=== PATIENT | female | born 1990 | race Caucasian/White ===

== ENCOUNTER 2020-04-06 22:57 | Inpatient (IN) | payer MEDICAID, SELFPAY ==
--- NOTE | 2020-04-06 22:58 | ECG_ITS ---
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
[2020-04-06 22:59] VITALS: BP 143/85; PULSE 99; RESP 17; TEMP 37; O2SAT 99; BMI 40.7
--- NOTE | 2020-04-06 23:09 | ED_ITS ---
HPI - Overdose General: Chief Complaint: Overdose Stated Complaint: OD Time Seen by Provider: 04/06/20 22:59 Source: patient and EMS Mode of arrival: EMS Limitations: no limitations History of Present Illness: HPI Narrative: 30-year-old female is here after an overdose attempt. She took multiple Klonopin's and Remeron was roughly 2 hours ago. Unsure of the exact amount. She told me she does not want to live anymore and just wanted to go to sleep and never wake up. Patient here is awake and alert and is not somnolent. She denies any other ingestions. She denies any vomiting or diarrhea. She has a long history of psychiatric issues. Review of Systems Const: Denies: fever(s), chills, body aches or change in appetite Eyes: Denies: blurry vision or eye discomfort ENMT: Denies: throat pain or dental pain Card: Denies: chest pain Resp: Denies: dyspnea GI: Denies: abdominal pain, nausea, vomiting or diarrhea : Denies: dysuria Musc: Denies: neck pain or back pain Skin/Breast: Denies: rash Neuro: Denies: headache(s) Psych: Reports: depression and suicidal ideation Momo/Lymph: Denies: easy bruising All/Imm: Denies: urticaria PFSH ED PFSH: Medical History (Updated 04/07/20 @ 02:50 by Michelle Brewer MD) Chronic post-traumatic stress disorder Major depressive disorder, recurrent, severe with psychotic symptoms Physical Exam Const: COMMON NORMALS: no acute distress, patient oriented x3 and healthy appearing HENMT: COMMON NORMALS: normocephalic and atraumatic HEAD & SCALP: normocephalic and atraumatic Eye: COMMON NORMALS: Equal, round and reactive pupils present and EOMs intact bilaterally PUPIL: Yes Equal, round and reactive pupils present Neck/C-Spine: COMMON NORMALS: full ROM and supple Chest: COMMONS NORMALS: normal inspection of the chest and normal palpation of entire chest wall Resp: COMMON NORMALS: normal respiratory effort, No retractions, No use of accessory muscles and clear to auscultation bilaterally AUSCULTATION: clear to auscultation bilaterally Cardio: COMMON NORMALS: regular rate, regular rhythm and No murmurs present (Cardio) RATE: regular rate RHYTHM: regular rhythm GI: COMMON NORMALS: Normal to inspection, nondistended, normoactive bowel sounds present, Soft to palpation, non-tender and no masses PALPATION: Yes Soft to palpation Extremity: COMMON NORMALS: normal to inspection and full ROM Neuro: COMMON NORMALS: patient oriented x3, moves all extremities and no focal motor deficits Psych: COMMON NORMALS: mental status grossly normal, Normal thought process present and cooperative THOUGHT PROCESS: Normal thought process present THOUGHT CONTENT: Yes Suicidality present Skin: COMMON NORMALS: no rashes or lesions noted and no wounds GENERAL SKIN EXAM: no rashes or lesions noted Course Vital Signs: Vital signs: Vital Signs Temperature 98.6 F 04/06/20 22:59 Pulse Rate 81 04/07/20 02:55 Respiratory Rate 18 04/07/20 02:58 Blood Pressure 151/83 04/07/20 02:55 Pulse Oximetry 97 04/07/20 02:55 MDM - Overdose MDM Narrative: Medical decision making narrative: Anita presents here with an intentional overdose for suicide attempt. Patient observed here for almost 5 hours and she has no signs of overdose. Patient's had no decreased in mental status and no difficulty breathing. She has no signs of lethal dose of her meds. Patient's blood work here is all normal. I spoke to psychiatrist and will admit to the psychiatric unit. Lab Data: Labs: Lab Results 04/06/20 04/06/20 04/06/20 Range/Units 00:03 23:23 23:23 WBC 11.9 H (4.0-10.0) 10^3/ uL RBC 4.12 (4.1-5.3) 10^6/u L Hgb 13.8 (11.5-15.3) g/dL Hct 41.0 (37.0-47.0) % MCV 99.5 H (81-99) fL MCH 33.5 (28.0-34.0) pg MCHC 33.7 (30.0-36.0) g/dL RDW 11.9 L (12.1-15.1) % Plt Count 341 (130-400) 10^3/c mm MPV 10.6 H (7.4-10.4) fL Neut % (Auto) 63.7 % Lymph % (Auto) 27.6 % Davidson % (Auto) 7.3 % Eos % (Auto) 0.8 % Baso % (Auto) 0.3 % Neut # (Auto) 7.59 (1.8-7.7) 10^3/u L Lymph # (Auto) 3.3 (0.8-4.8) 10^3/u L Davidson # (Auto) 0.9 (0.2-0.9) 10^3/u L Eos # (Auto) 0.1 (0.0-0.8) 10^3/u L Baso # (Auto) 0.0 (0.0-0.1) 10^3/u L Nucleated RBC % (a uto) 0 % Nucleated RBCs # 0.0 /100WBC Sodium 135 L (136-145) mmol/L Potassium 4.0 (3.5-5.1) mmol/L Chloride 101 (98-107) mmol/L Carbon Dioxide 23 (22-29) mmol/L Anion Gap 15.0 (5-19) BUN 9 (6-20) mg/dL Creatinine 0.8 (0.5-0.9) mg/dL GFR Calculation 83.1 L (90-130) mL/min Glucose 103 (65-115) mg/dL Calculated Osmolal ity 279 L (285-295) mOsm/k g Calcium 9.2 (8.5-10.5) mg/dL Total Bilirubin 0.5 (0.15-1.2) mg/dL AST 24 (0-32) U/L ALT 25 (0-33) U/L Alkaline Phosphata se 72 (35-105) IU/L Total Protein 7.0 (6.6-8.7) g/dL Albumin 4.2 (3.5-5.2) g/dL Globulin 2.8 (1.3-4.6) g/dL HCG, Qual Negative (Negative) Salicylates < 0.3 L (3-10) mg/dL Urine Opiates Scre en (Negative) ng/mL Acetaminophen < 5.0 L (10-30) ug/mL Ur Barbiturates Sc reen (Negative) ng/mL Ur Phencyclidine S crn (Negative) ng/mL Ur Amphetamines Sc reen (Negative) ng/mL U Benzodiazepines Scrn (Negative) ng/mL Urine Cocaine Scre en (Negative) ng/mL U Marijuana (THC) Screen (Negative) ng/mL Ethyl Alcohol < 10 (0-10) mg/dL 04/07/20 Range/Units 00:03 WBC (4.0-10.0) 10^3/ uL RBC (4.1-5.3) 10^6/u L Hgb (11.5-15.3) g/dL Hct (37.0-47.0) % MCV (81-99) fL MCH (28.0-34.0) pg MCHC (30.0-36.0) g/dL RDW (12.1-15.1) % Plt Count (130-400) 10^3/c mm MPV (7.4-10.4) fL Neut % (Auto) % Lymph % (Auto) % Davidson % (Auto) % Eos % (Auto) % Baso % (Auto) % Neut # (Auto) (1.8-7.7) 10^3/u L Lymph # (Auto) (0.8-4.8) 10^3/u L Davidson # (Auto) (0.2-0.9) 10^3/u L Eos # (Auto) (0.0-0.8) 10^3/u L Baso # (Auto) (0.0-0.1) 10^3/u L Nucleated RBC % (a uto) % Nucleated RBCs # /100WBC Sodium (136-145) mmol/L Potassium (3.5-5.1) mmol/L Chloride (98-107) mmol/L Carbon Dioxide (22-29) mmol/L Anion Gap (5-19) BUN (6-20) mg/dL Creatinine (0.5-0.9) mg/dL GFR Calculation (90-130) mL/min Glucose (65-115) mg/dL Calculated Osmolal ity (285-295) mOsm/k g Calcium (8.5-10.5) mg/dL Total Bilirubin (0.15-1.2) mg/dL AST (0-32) U/L ALT (0-33) U/L Alkaline Phosphata se (35-105) IU/L Total Protein (6.6-8.7) g/dL Albumin (3.5-5.2) g/dL Globulin (1.3-4.6) g/dL HCG, Qual (Negative) Salicylates (3-10) mg/dL Urine Opiates Scre en Negative (Negative) ng/mL Acetaminophen (10-30) ug/mL Ur Barbiturates Sc reen Negative (Negative) ng/mL Ur Phencyclidine S crn Negative (Negative) ng/mL Ur Amphetamines Sc reen Negative (Negative) ng/mL U Benzodiazepines Scrn Negative (Negative) ng/mL Urine Cocaine Scre en Negative (Negative) ng/mL U Marijuana (THC) Screen Positive H (Negative) ng/mL Ethyl Alcohol (0-10) mg/dL EKG Data^: EKG 1: Attestation: I personally reviewed and interpreted this EKG as follows: EKG interpretation date: 04/06/20 EKG interpretation time: 23:19 Interpretation: nsr hr [address] or t wave abnormalities qrs 91 qtc 410 Discharge Plan Discharge Patient Disposition: Admitted As Inpatient Admit Provider: Bebe Rodriges Clinical Impression: Suicide attempt by multiple drug overdose Qualifiers: Encounter type: initial encounter Qualified Code(s): T50.912A - Poisoning by multiple unspecified drugs, medicaments and biological substances, intentional self-harm, initial encounter Condition: Stable Coding Level of Care Code ED Pedicab Driver for Rae 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
[2020-04-06 23:33] LABS: Basophils % 0.3 %; Eosinophils # 0.1 10^3/uL (0.0-0.8); Eosinophils % 0.8 %; Hemoglobin 13.8 g/dL (11.5-15.3); Lymphocytes # 3.3 10^3/uL (0.8-4.8); Lymphocytes % 27.6 %; Mean Corpuscular HGB Conc 33.7 g/dL (30.0-36.0); Mean Corpuscular Hemoglobin 33.5 pg (28.0-34.0); Mean Corpuscular Volume 99.5 fL (81-99); Mean Platelet Volume 10.6 fL (7.4-10.4); Monocytes # 0.9 10^3/uL (0.2-0.9); Monocytes % 7.3 %; Neutrophils # 7.59 10^3/uL (1.8-7.7); Neutrophils % 63.7 %; Nucleated Red Blood Cells % 0 %; Platelet Count 341 10^3/cmm (130-400); Red Blood Count 4.12 10^6/uL (4.1-5.3); Red Cell Distribution Width 11.9 % (12.1-15.1); White Blood Count 11.9 10^3/uL (4.0-10.0)
[2020-04-06 23:55] VITALS: BP 143/85; PULSE 74; RESP 19; O2SAT 97
[2020-04-06 23:57] LABS: Alanine Aminotransferase 25 U/L (0-33); Albumin Level 4.2 g/dL (3.5-5.2); Alkaline Phosphatase 72 IU/L (35-105); Aspartate Amino Transferase 24 U/L (0-32); Blood Urea Nitrogen 9 mg/dL (6-20); Calcium 9.2 mg/dL (8.5-10.5); Carbon Dioxide 23 mmol/L (22-29); Chloride 101 mmol/L (98-107); Globulin 2.8 g/dL (1.3-4.6); Glomerular Filtration Rate 83.1 mL/min (90-130); Glucose 103 mg/dL (65-115); Osmolality Calculated 279 mOsm/kg (285-295); Sodium 135 mmol/L (136-145); Total Bilirubin 0.5 mg/dL (0.15-1.2)
[2020-04-07] VITALS (9 sets, daily range): BP systolic 112–152; BP diastolic 55–91; PULSE 72–88; RESP 15–18; TEMP 36.1–36.7; O2SAT 95–99
[2020-04-07 00:10] LABS: Acetaminophen < 5.0 ug/mL (10-30); Alcohol Level < 10 mg/dL (0-10); Salicylate < 0.3 mg/dL (3-10)
[2020-04-07 00:10] LABS: HCG Qualitative Urine. Negative (Negative)
--- NOTE | 2020-04-07 00:15 | PC.NURSE ---
poison control called for update on patient and nurse will call back.
[2020-04-07 00:40] LABS: Amphetamines Screen Urine Negative (Negative); Barbiturates Screen Urine Negative (Negative); Benzodiazepines Screen Urine Negative (Negative); Cocaine Screen Urine Negative (Negative); Opiate Screen Urine Negative (Negative); PCP Screen Urine Negative (Negative); THC Screen Urine Positive (Negative)
[2020-04-07] MEDS: ketorolac 30 mg/mL INJ IVP (01:39)
[2020-04-07] MEDS: morphine 4 mg/mL SDV 1 mL IVP (02:58)
[2020-04-07] MEDS: acetaminophen 325 mg Tablet 650 MG PO (04:48)
[2020-04-07] MEDS: trazodone 50 mg Tablet PO ×2 (04:48→20:45)
[2020-04-07] MEDS: nicotine 2 mg Gum BUCCAL (04:49)
[2020-04-07] MEDS: hyDROXYzine 25 mg Capsule 50 MG PO (04:50)
--- NOTE | 2020-04-07 05:12 | PC.NURSE ---
PM assessment 30-year-old female is here after an overdose attempt. She took multiple Klonopin's and Remeron unsure of the exact amount. She states, she does not want to live anymore and just wanted to go to sleep and never wake up. I just want to rest and the pain go away. Patient here is awake and alert and is not somnolent. She denies any other ingestions. She denies any vomiting or diarrhea. She has a long history of psychiatric issues including major depressive disorder, ptsd, and anxiety. Pt states she has had chronic low back pain and it is not controlled at this time due to lack of transportation and financial means. Pt would like to have a case aide or high school social studies tutor work with her to get home health referrals that she feels are necessary. Pt states, I have issues with my family, my mother has full guardianship of my children, and will not let me see them. Pt feels that her mother never wanted her and that she is in the way. pt is tearful as she expressed this loss. Pt is anxious and reports pain in her lower back rated a 7 on 1-10 pain scale. Med nurse notified. Prior to admit to the NPU pt states, the ED physician assured her that her pain would be addressed while in the unit. She was given Tordol 30mg IM and 4mg of Morphine prior to admission. Pt has requested more medication for pain. Will continue to monitor patient needs and progress
[2020-04-07] MEDS: nicotine 21 mg Patch 1 PATCH TRANSDERMA (09:58)
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
[2020-04-07] MEDS: propranolol 20 mg Tablet PO ×2 (12:59→20:45)
[2020-04-07] MEDS: escitalopram 10 mg Tablet 20 MG PO (12:59)
[2020-04-07] MEDS: CLONazepam 1 mg Tablet PO ×2 (13:04→20:44)
[2020-04-07] MEDS: methocarbamol 500 mg Tablet PO ×2 (13:26→20:45)
--- NOTE | 2020-04-07 13:26 | PC.NURSE ---
PRN ROBAXIN 500 MG GIVEN PO PER PT C/O STATED MUSCLE SPASMS
[2020-04-07] MEDS: TRAMadol 50 mg Tablet PO (14:34)
[2020-04-07] MEDS: ziprasidone hcl 40 mg Capsule PO (16:48)
[2020-04-07] MEDS: prazosin 5 mg Capsule PO (20:45)
[2020-04-07] MEDS: mirtazapine 15 mg Tablet PO (20:45)
[2020-04-08] MEDS: nicotine 2 mg Gum BUCCAL ×2 (00:20→05:51)
[2020-04-08] MEDS: TRAMadol 50 mg Tablet PO (05:51)
[2020-04-08 06:00] VITALS: BP 121/82; PULSE 93; RESP 17; TEMP 36.7; O2SAT 96
[2020-04-08] MEDS: ziprasidone hcl 20 mg Capsule PO (06:20)
[2020-04-08] MEDS: nicotine 21 mg Patch 1 PATCH TRANSDERMA (07:43)
[2020-04-08] MEDS: CLONazepam 1 mg Tablet PO (07:43)
[2020-04-08] MEDS: cetirizine 10 mg Tablet PO (07:43)
[2020-04-08] MEDS: escitalopram 10 mg Tablet 20 MG PO (07:44)
[2020-04-08] MEDS: montelukast sodium 10 mg Tablet PO (07:44)
[2020-04-08] MEDS: pantoprazole DR 40 mg Tablet PO (07:44)
[2020-04-08] MEDS: propranolol 20 mg Tablet PO (07:44)
--- NOTE | 2020-04-08 07:46 | PC.NURSE ---
ZEB HINOJOSA Patient requested medication for anxiety.
[2020-04-08 12:24] VITALS: BP 121/82; PULSE 93; RESP 17; TEMP 36.7; O2SAT 96
--- NOTE | 2020-04-08 12:28 | PM.NDC ---
Diagnoses at Discharge Discharge Diagnosis (1) Suicide attempt by multiple drug overdose: Status: Acute Qualifiers: Encounter type: initial encounter Qualified Code(s): T50.912A - Poisoning by multiple unspecified drugs, medicaments and biological substances, intentional self-harm, initial encounter (2) Chronic post-traumatic stress disorder: Status: Acute Reason for Visit Reason for Visit: OD Hospital Course Hospital Course Patient presented to the emergency department after ingesting multiple tablets of Klonopin and Remeron stating that she had become upset after a phone conversation with her mom. She states that she had no intention of ending her life but was, wanting to go to sleep to forget how upset she was. She denies any history of suicide attempt or self-harm behavior and denied any depressive symptoms at the time of the event. Patient was observed in the emergency department and was medically cleared to include ECG which was unremarkable. Patient's observation continued on the inpatient psychiatry unit at which time the patient denied any depressive symptoms and denied any suicidal ideation or thoughts about self-harm. Patient was restarted on home medication which she tolerated with no reports of any medication side effects. Patient participated in unit milieu with no reports of any behavioral disturbances. Given her recent impulsive action of ingesting multiple tablets, arrangements were made to provide a week supply of clonazepam and mirtazapine while coordinating with her prescribing mental health provider for follow-up. Low to moderate risk given no current suicidal ideation and no reported active psychiatric symptoms although patient's risk may continue to be elevated if she continues to act in an impulsive manner given her mood and affect lability and demonstration of poor coping in the context of acute stressors. Use of any substances or alcohol would further exacerbate this poor coping. Risk mitigation included psychiatric hospitalization for observation for any sequela from ingesting multiple tablets, restarting home medication and observing/evaluating for any active psychiatric symptoms as well as recommending abstaining from the use of any illicit substances or alcohol as well as need for compliance with her medication, medication management and counseling follow-up to target the development of more appropriate, adaptive coping strategies and context of ongoing stressors. Patient was able to communicate her understanding of the need to abstain from the use of any substances and alcohol as well as the need for compliance with her medication, medication management and counseling follow-up in order to further mitigate her risk of harm to self and others. Involuntary Hold Information 96 Hour Hold: 96 Hour Involuntary Admission: Yes 96 Hour Hold Ending Date: 04/13/20 96 Hour Hold Ending Time: 02:46 Mental Status Exam MSE Comments: Appears stated age, appropriately groomed and dressed in hospital scrubs, calm, cooperative, interactive, good eye contact Psychomotor activity is neither increased nor decreased, no agitation Speech is normal rate and volume, spontaneous, clear articulation, not pressured I feel better, congruent affect, full range Alert and oriented to person, place, time, situation Remote and recent memory appear to be intact per interview Intellectual functioning appears to be average based on vocabulary, interview Thought process, linear, no flight of ideas, no looseness of association Thought content, no delusions, no hallucinations, no suicidal or homicidal ideation Insight and judgment appear to be intact Physical Exam Narrative: EXAM NARRATIVE: no changes Discharge Data Vitals: Last Vital Signs Temp 98.0 F 04/08/20 12:24 Pulse 93 04/08/20 12:24 Resp 17 04/08/20 12:24 BP 121/82 04/08/20 12:24 Pulse Ox 96 04/08/20 12:24 Discharge Plan Discharge Patient Disposition: Home Condition: Stable Prescriptions: New clonazepam 1 mg Tablet 1 mg PO TID PRN (Reason: Anxiety) Qty: 21 RF: 0 prazosin 5 mg Capsule 5 mg PO BEDTIME Qty: 0 RF: 0 mirtazapine 15 mg Tablet 15 mg PO BEDTIME Qty: 7 RF: 0 escitalopram oxalate 10 mg Tablet 20 mg PO DAILY Qty: 0 RF: 0 Continued cetirizine [Zyrtec] 10 mg tablet 10 mg PO DAILY RF: 0 montelukast 10 mg tablet 10 mg PO DAILY RF: 0 prazosin 5 mg capsule 15 mg PO .at bedtime Qty: 90 RF: 2 propranolol 40 mg tablet 40 mg PO TID Qty: 90 RF: 2 escitalopram oxalate [Lexapro] 20 mg tablet 20 mg PO DAILY Qty: 30 RF: 2 mirtazapine [Remeron] 15 mg tablet 30 mg PO .at bedtime Qty: 30 RF: 2 Geodon 20 mg capsule 20 mg PO BIDWM RF: 0 methocarbamol 500 mg tablet 500 mg PO QID PRN (Reason: Spasms) RF: 0 omeprazole 40 mg capsule,delayed release(DR/EC) 40 mg PO DAILY RF: 0 Discharge Orders: Discharge Order (Routine); Ordered 04/08/20 Ordered By: Ranjan Lassiter Referrals: Home Support Services [Other] (A referral was made for you to get in home support services. They should be calling to arrange an assessment within 2-3 weeks. If you have not heard from them you may give them a call at [phone] and they can track the progress with your DCN/Medicaid #[id number] . They did make your case a high priority since you were hospitalized.) [employer]/Medicaid Transport [Other] (For transportation to appointments call at least 5 days in advance of the appointment. When using Medicaid Transport/[employer] you will need the following information when requesting a ride: - name, date of , address, phone number, and Medicaid number -address, and phone number of where you are going; -date and time of the appointment; -any special needs, such as wheelchair van If for some reason the ride does not show up you may call the Where's My Ride number at ) Remedios Morris-therapist [Other] - 4-7 days (Keep scheduled appointments) [facility] [Primary Care Provider] - Kristie Barraza [Staff Physician] - 04/18/20 11:30 am (Hospital follow up. She will evaluate giving refills for the medications you overdosed on. IN-PERSON APPOINTMENT) Discharge Attestations NPU Time Spent in Discharge Care*: greater than 30 min Status at Discharge: Cognitive status at discharge: cognitively intact, Behavioral status at discharge: cooperative, Functional status at discharge: independent ambulation Overall status at discharge: patient is back to baseline Coding Level of Care Code Acute Supervisor [employer] for [employer] Fwd Diagnoses Suicide attempt by multiple drug overdose T50.912A Encounter type: initial encounter Chronic post-traumatic stress disorder F43.12
== END 2020-04-08 14:17 | disposition home or self-care (01) | DRG 918 ==
LOC: ER 04-07 02:50 → NP 04-07 03:14
PROVIDERS: Admitting Provider Psychiatry & Neurology Psychiatry; Emergency Provider Emergency Medicine; PCP Physician Assistant; Visit Provider Psychiatry & Neurology Psychiatry
DX: T42.4X2A Poisoning by benzodiazepines, intentional self-harm, initial encounter (principal); F33.3 Major depressive disorder, recurrent, severe with psychotic symptoms; T43.022A Poisoning by tetracyclic antidepressants, intentional self-harm, initial encounter; F43.12 Post-traumatic stress disorder, chronic; M54.9 Dorsalgia, unspecified; G47.00 Insomnia, unspecified; F41.9 Anxiety disorder, unspecified
CPT/HCPCS: 12345; 80053; 80306; 80307; 81025; 85025; 93005; 99284; J1885; J2270

== ENCOUNTER → 2020-04-18 12:08 | Outpatient (BNVA) | payer MEDICAID, SELFPAY | PROVIDERS: PCP Physician Assistant; Visit Provider Registered Nurse | DX: Z03.89 Encounter for observation for other suspected diseases and conditions ruled out (principal); F33.3 Major depressive disorder, recurrent, severe with psychotic symptoms; F43.12 Post-traumatic stress disorder, chronic; F41.1 Generalized anxiety disorder; F41.0 Panic disorder [episodic paroxysmal anxiety] | CPT/HCPCS: 36415; 80061; 82306; 83036; 83540; 84443 ==

== ENCOUNTER 2020-05-31 16:22 | Emergency (ER) | payer MEDICAID, SELFPAY ==
[2020-05-31 16:25] VITALS: BP 110/72; PULSE 69; RESP 16; TEMP 36.6; O2SAT 100; BMI 40.8
--- NOTE | 2020-05-31 16:35 | XR_ITS ---
WS: [id number] Right foot, 3 views, 05/31/2020 Clinical Data: rt foot pain Comparison: None. Findings: No fractures or dislocations are seen. No bone destruction or erosion is noted. The joint spaces and soft tissues are normal. XR/XR foot RT min 3V* [id number] Impression: Negative right foot.
--- NOTE | 2020-05-31 16:35 | XR_ITS ---
WS: [id number] Right ankle, 3 views, 05/31/2020 Clinical Data: rt ankle pain Comparison: None. Findings: No fractures or dislocations are seen. The ankle mortise is normal. The talus and calcaneus are unrem arkable. No soft tissue swelling over the medial or lateral malleolus is seen. XR/XR ankle RT min 3V* [id number] Impression: Negative right ankle.
[2020-05-31] MEDS: HYDROcodone-acetaminophen 5-325 mg Tablet 1 TAB PO (16:45)
[2020-05-31] MEDS: ondansetron 4 MG Tablet PO (16:46)
[2020-05-31 16:47] VITALS: BP 122/74; PULSE 68; RESP 20; O2SAT 99
--- NOTE | 2020-05-31 16:50 | W.ED.FALL ---
HPI - Fall General: Chief Complaint: Fall Stated Complaint: ANKLE SPRAIN Time Seen by Provider: 05/31/20 16:31 Source: patient and EMS Mode of arrival: EMS Limitations: no limitations History of Present Illness: HPI Narrative: 30-year-old female patient presents to the emergency department due to right ankle and foot pain. She reports a sustained 3 falls in the past 3 days due to right ankle weakness. States each fall occurred while going downstairs. Most recent fall was this morning while taking out the trash which required her stepping down steps. She states right ankle became weak causing her to fall. She denies further injury such as neck pain or head injury. She denies loss of consciousness. She reports has problems with balance and has a follow-up appointment on June 08 for that issue. She states took ibuprofen 800 mg this morning at 9 AM for ankle and foot pain. complaint: fall Onset (ago): day(s) (1) Fall from: down stairs (#) (3) Fall witnessed: no Place fall occurred: home Loss of consciousness: None Prolonged down time: no Symptoms prior to fall: other (rt ankle weakness) Context: tripped/slipped Location of injury - extremities: Right: ankle and foot Severity: moderate Quality: burning and sharp Associated symptoms-after fall: Reports difficulty walking; Denies abdominal pain, chest pain or neck pain Review of Systems General: Reports: 10 or more systems reviewed and unremarkable except in HPI and below Const: Denies: fever(s), chills or diaphoresis Eyes: Denies: blurry vision or eye redness ENMT: Denies: throat pain, dental pain or disequilibrium Card: Denies: chest pain, palpitations or irregular heart rhythm Resp: Denies: dyspnea, productive cough, non-productive cough or wheezing GI: Denies: abdominal pain, nausea or vomiting : Denies: difficulty voiding or dysuria Musc: Reports: joint pain, joint swelling and muscle weakness (rt ankle); Denies: neck pain, back pain or muscle cramps Skin/Breast: Reports: erythema (rt ankle with bruising); Denies: rash or pruritus Neuro: Reports: difficulty walking Psych: Denies: anxiety, depression or change in appetite Momo/Lymph: Denies: easy bruising PFS ED PFSH: Medical History Chronic post-traumatic stress disorder Generalized anxiety disorder with panic attacks Major depressive disorder, recurrent, severe with psychotic symptoms Female Reproductive History: Date of last menstrual period: 05/28/20 Physical Exam Const: COMMON NORMALS: no acute distress, patient oriented x3, healthy appearing and alert GENERAL APPEARANCE: cooperative, well kempt, well developed and well hydrated NUTRITIONAL APPEARANCE: overweight ORIENTATION/CONSCIOUSNESS: Yes awake, Yes oriented to person, Yes oriented to place and Yes oriented to time HENMT: COMMON NORMALS: normocephalic, atraumatic, EAC's normal, Normal external nose present and moist oral mucous membranes HEAD & SCALP: normal to inspection, normocephalic and atraumatic FACE & SINUS: normal facial exam and face symmetric NOSE: Normal external nose present EXTERNAL AUDITORY CANAL: EAC's normal Eye: COMMON NORMALS: Equal, round and reactive pupils present and EOMs intact bilaterally GENERAL EYE: appearance normal, both eyes and all related structures PUPIL: Yes Equal, round and reactive pupils present Neck/C-Spine: COMMON NORMALS: full ROM and no lymphadenopathy GENERAL: Yes normal visual inspection and Yes trachea midline CERVICAL SPINE: Yes cervical ROM normal Lymph: LYMPHATIC: no lymphadenopathy noted Chest: COMMONS NORMALS: normal inspection of the chest Resp: COMMON NORMALS: normal respiratory effort, No retractions, No use of accessory muscles and clear to auscultation bilaterally EFFORT & INSPECTION: Yes able to speak in complete sentences AUSCULTATION: clear to auscultation bilaterally Cardio: COMMON NORMALS: regular rhythm, S1 normal heart sound present, S2 normal heart sound present and Peripheral pulses 2+ throughout RHYTHM: regular rhythm HEART SOUNDS: S1 normal heart sound present and S2 normal heart sound present PERIPHERAL PULSES: Peripheral pulses 2+ throughout GI: COMMON NORMALS: Normal to inspection, nondistended, normoactive bowel sounds present, Soft to palpation and non-tender INSPECTION: Yes normal to inspection, No abdominal wall ecchymosis, No abdominal distension and Yes central obesity PALPATION: Yes Soft to palpation : COMMON NORMALS: Yes no CVA tenderness BLADDER/KIDNEY EXAM: Yes no CVA tenderness Back/Pelvis: COMMON NORMALS: no CVA tenderness, thoracic and lumbar spine normal to inspection, no thoracic nor lumbar tenderness, thoraco-lumbar ROM normal and straight leg raise negative bilaterally Extremity: COMMON NORMALS: normal to inspection, capillary refill normal, no clubbing, cyanosis or edema and no pedal edema GENERAL: Yes normal exam except as noted RIGHT LOWER EXTREMITY: Yes foot & digits (ecchymosis lateral ankle) Right ankle: Yes inspection, Yes palpation (pain lateral ankle), Yes ROM (limited due to pain) and Yes neurovascular exam (distally intact) and Yes foot & digits Right foot and digits: Yes inspection (ecchymosis lateral proximal and lateral foot), Yes palpation (pain dorsally, proximal foot), Yes ROM (full flexion/extension to all digits) and Yes neurovascular exam (distally intact) Neuro: COMMON NORMALS: patient oriented x3 and no focal motor deficits SENSORIUM/ORIENTATION: Yes alert, Yes oriented to person, Yes oriented to place and Yes oriented to time Psych: COMMON NORMALS: mental status grossly normal, Normal thought process present and cooperative APPEARANCE: Yes grossly normal and Yes well kempt ATTITUDE: Yes calm ACTIVITY/MOTOR BEHAVIOR: Yes appropriate eye contact THOUGHT PROCESS: Normal thought process present THOUGHT CONTENT: Yes Normal thought content present ATTENTION/CONCENTRATION: Yes attention grossly intact MEMORY/COGNITION: Yes memory grossly intact INSIGHT: Good insight present (Psych) JUDGEMENT: Good judgement present (Psych) Skin: COMMON NORMALS: no rashes or lesions noted and turgor normal GENERAL SKIN EXAM: no rashes or lesions noted and turgor normal Course Vital Signs: Vital signs: Vital Signs Temperature 97.9 F 05/31/20 16:25 Pulse Rate 61 05/31/20 17:17 Respiratory Rate 16 05/31/20 17:17 Blood Pressure 117/59 05/31/20 17:17 Pulse Oximetry 99 05/31/20 17:17 MDM - Fall Imaging Data^: Xray Ortho: My impression: xr rt ankle and foot without acute findings/obvious fracture, ? 5th metatarsal avulsion fx - radiology read pending Discharge Plan Discharge Patient Disposition: Home Clinical Impression: Fall Qualifiers: Encounter type: initial encounter Qualified Code(s): W19.XXXA - Unspecified fall, initial encounter Ankle sprain Qualifiers: Encounter type: initial encounter Involved ligament of ankle: tibiofibular ligament Laterality: right Qualified Code(s): S93.431A - Sprain of tibiofibular ligament of right ankle, initial encounter Contusion of foot Qualifiers: Encounter type: initial encounter Laterality: right Qualified Code(s): S90.31XA - Contusion of right foot, initial encounter Condition: Stable Prescriptions: New IBU 600 mg tablet 600 mg PO TID PRN (Reason: pain) Qty: 20 RF: 0 No Action montelukast 10 mg tablet 10 mg PO QAM RF: 0 propranolol 40 mg tablet 40 mg PO TID Qty: 90 RF: 2 Rexulti 3 mg tablet 3 mg PO DAILY Qty: 30 RF: 0 clonazepam 1 mg tablet 1 mg PO TID PRN (Reason: Anxiety) 30 Days Qty: 70 RF: 0 omeprazole 40 mg capsule,delayed release(DR/EC) 40 mg PO QAM RF: 0 multivitamin Tablet 1 tab PO DAILY RF: 0 albuterol sulfate 2.5 mg /3 mL (0.083 %) solution for nebulization 2.5 mg inhalation PRN RF: 0 ibuprofen 200 mg Tablet 200 mg PO PRN RF: 0 Lexapro 20 mg tablet 20 mg PO QAM RF: 0 Discharge Orders: Discharge ED (Routine); Ordered 05/31/20 Ordered By: Priscila Rubin Referrals: [facility] [Referring] - Discharge Diet: Usual diet Discharge Activity: Limit activity as instructed Patient Instructions: Ankle Sprain (ED), Crutch Instructions (ED), Contusion in Adults (ED), Opioid Safety Activity Restrictions/Additional Instructions: keep the rt foot/ankle elevated to help reduce swelling and pain Loosen the splint if splint becomes too tight follow up with primary care in 7 days if pain is not improved continue ice compresses to help with pain, never apply ice directly to the skin Take Tylenol, 2 extra strength tablets three times daily as needed for pain Coding Level of Care Code 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
--- NOTE | 2020-05-31 17:08 | PC.PHAR ---
PT STATES SHE IS STILL TAKING REXULTI 3MG DAILY-EXT MED HISTORY SHOWS 2MG DAILY FILLED IN 05/26/20 15D/S-
[2020-05-31 17:17] VITALS: BP 117/59; PULSE 61; RESP 16; O2SAT 99
[2020-05-31 18:34] VITALS: BP 126/86; PULSE 67; RESP 18
== END 2020-05-31 18:38 | disposition home or self-care (01) ==
PROVIDERS: Emergency Provider Nurse Practitioner Family; PCP Nurse Practitioner Family
DX: S93.431A Sprain of tibiofibular ligament of right ankle, initial encounter (principal); S90.31XA Contusion of right foot, initial encounter; W19.XXXA Unspecified fall, initial encounter
CPT/HCPCS: 73610; 73630; Q0162

== ENCOUNTER 2020-08-16 17:02 | Inpatient (IN) | payer MEDICAID, SELFPAY ==
[2020-08-16] VITALS (16 sets, daily range): BP systolic 116–152; BP diastolic 78–104; PULSE 68–113; RESP 16–26; TEMP 36.4–37.1; O2SAT 93–100; BMI 39.4
--- NOTE | 2020-08-16 | SCC_ITS ---
Procedure Done: Irrigation and debridement with laceration repair left ankle, closed reduction under anesthesia left trimalleolar ankle fracture and application of external fixation left lower extremity. 16.5 seconds of fluoroscopic guidance, for a cumulative dose of 0.43 mGy, was provided to Dr. Lizarraga by the radiology department. C-arm images of the LEFT ankle were saved for the patient's permanent record. [facility]ENTER[facility]ov[facility]
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
[2020-08-16] MEDS: HYDROmorphone 1 mg/mL INJ 1 mL 0.5 MG IVP (17:38)
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
[2020-08-16] MEDS: sodium chloride 0.9% 1,000 ML 30 ML IV (18:27)
--- NOTE | 2020-08-16 19:44 | XR_ITS ---
WS: [id number] Exam: XR ankle LT 2V [id number] Date/Time of Exam: 08/16/2020 7:44 PM Reason For Exam: LT ANKLE FX Previously noted ankle dislocation has been reduced. Articular relationships are restored. Comminuted fracture through the central talus. XR/XR ankle LT 2V [id number] IMPRESSION: 1. Reduction of previously noted ankle dislocation. 2. Comminuted fracture through the central talus.
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
--- NOTE | 2020-08-16 20:04 | SUR.PHASEI ---
PT AWAKES TO VOICE TALKATIVE ON RA PT TAKING OCC ICE CHIPS PT DISTAL TOES TO LEFT CAP REFILL 2 SECONDS, EX FIX IN PLACE WITH TELFA DRESSING TO SITES, RT FOOT IN WALKING BOOT , DISTAL TOES PINK WARM CAP REFILL 2 SECONDS, PT SLEEPS IF NOT DISTURBED SATS 96% ON RA.
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
--- NOTE | 2020-08-16 20:46 | SUR.PHASEI ---
2019 PT SLEEPS WITH SNORING RESP NOTED PT AWAKES TO VOICE AND C/O OF PAIN AND ANXIETY AND WANTS FOOD AND A DR PEPPER. PT THEN BACK TO SLEEP , REPORT CALLED TO FLOOR PT VSS
[2020-08-16] MEDS: HYDROmorphone 1 mg/mL INJ 1 mL 2 MG IVP (21:36)
[2020-08-16] MEDS: ketorolac 30 mg/mL INJ 15 MG IVP (21:57)
[2020-08-16] MEDS: CLONazepam 1 mg Tablet PO (22:00)
[2020-08-16] MEDS: enoxaparin 30 mg/0.3 mL Syringe SUBCUT (22:01)
[2020-08-16] MEDS: tetanus-diphtheria tox (adult) 0.5 mL SDV IM (22:01)
[2020-08-16 22:53] LABS: Amphetamines Screen Urine Positive (Negative); Barbiturates Screen Urine Negative (Negative); Benzodiazepines Screen Urine Positive (Negative); Cocaine Screen Urine Negative (Negative); Opiate Screen Urine Positive (Negative); PCP Screen Urine Negative (Negative); THC Screen Urine Positive (Negative)
[2020-08-17] VITALS (12 sets, daily range): BP systolic 124–134; BP diastolic 69–84; PULSE 76–103; RESP 16–18; TEMP 36.5–37; O2SAT 96–99
[2020-08-17] MEDS: HYDROmorphone 1 mg/mL INJ 1 mL 0.4 MG IVP ×6 (01:17→21:32)
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
[2020-08-17 06:36] LABS: Basophils % 0.1 %; Hematocrit 35.8 % (37.0-47.0); Hemoglobin 12.1 g/dL (11.5-15.3); Lymphocytes # 1.2 10^3/uL (0.8-4.8); Lymphocytes % 9.2 %; Mean Corpuscular HGB Conc 33.8 g/dL (30.0-36.0); Mean Corpuscular Volume 100.6 fL (81-99); Mean Platelet Volume 11.4 fL (7.4-10.4); Monocytes # 1.1 10^3/uL (0.2-0.9); Monocytes % 8.4 %; Neutrophils % 81.8 %; Nucleated Red Blood Cells % 0 %; Platelet Count 241 10^3/cmm (130-400); Red Blood Count 3.56 10^6/uL (4.1-5.3); Red Cell Distribution Width 13.1 % (12.1-15.1); White Blood Count 13.3 10^3/uL (4.0-10.0)
[2020-08-17 06:51] LABS: Anion Gap 11.3 (5-19); Blood Urea Nitrogen 10 mg/dL (6-20); Calcium 8.6 mg/dL (8.5-10.5); Carbon Dioxide 30 mmol/L (22-29); Chloride 101 mmol/L (98-107); Glomerular Filtration Rate 115.9 mL/min (90-130); Glucose 154 mg/dL (65-115); Osmolality Calculated 288 mOsm/kg (285-295); Potassium 4.3 mmol/L (3.5-5.1); Sodium 138 mmol/L (136-145)
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
[2020-08-17] MEDS: lisinopril 5 mg Tablet PO (08:03)
[2020-08-17] MEDS: CLONazepam 1 mg Tablet PO (08:03)
[2020-08-17] MEDS: sennosides-docusate Tablet 1 TAB PO (08:03)
[2020-08-17] MEDS: propranolol 40 mg Tablet PO ×3 (08:03→21:32)
[2020-08-17] MEDS: HYDROcodone-acetaminophen 10-325 mg Tablet 1 TAB PO ×2 (09:31→16:48)
--- NOTE | 2020-08-17 10:14 | PC.CHAP ---
Pastoral Care Encounter/Spiritual Assessment Type of Contact [] Declined electroless plater visit [] Patient/Family/Request visit [] Outpatient visit [] Follow-up visit [] Physician referral [] Code/Alert [] Routine visit [] Staff referral [] Actively dying [] Patient sleeping [] Family support [] [] Out of room [] Palliative care [] [] Receiving care in room [] Pre-surgical visit [] Trauma [] Long length of stay [] ICU visit [] Other: Relational/Emotional Strength [] Patient feels connected with others/family/visitors/staff [] Distress [] Loneliness/isolation [] Abandonment Spirituality of Patient [] Person of Sara [] Attends Church of their Sara [] Believes in Prayer [] Reads Bible or Shinto materials [] There are Spiritual issues to be addressed Digital Marketing Executive Interventions [] Prayer [] Active listening [] Non-anxious presence [] Spiritual/emotional support [] Crisis/trauma care [] Spiritual counseling [] Bereavement support [] Provided bereavement packet [] Provided Bible/devotional materials [] Provided toy/stuffed animal, coloring book to patient or family member [] Provided Communion [] Anointing/[place] [] Salvation [] Completed spiritual assessment [] Other: Impact on Illness or Injury [] Angry [] Fearful [] Anxious [] Often cries [] Exhaustion [] Unable to work [] Unable to attend orthodox [] Unable to walk/stand [] Unable to read [] Unable to drive [] Unable to eat/drink [] Unable to sleep [] Unable to be with family [] Patient intubated [] Other: Summary Time spent with patient
[2020-08-17] MEDS: nicotine 14 mg Patch 1 PATCH TRANSDERMA (10:54)
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
[2020-08-17] MEDS: CLONazepam 1 mg Tablet 2 MG PO ×2 (14:29→23:51)
--- NOTE | 2020-08-17 14:35 | PC.NURSE ---
Ramila Student nurse gave lovenox in [facility] today but forgot to save it in the computer. We got confirmation from Mrs. Coats.
--- NOTE | 2020-08-17 16:51 | PC.NURSE ---
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 Boyfriend brought her purse which she states she has no meds, cigarettes and lace roller operator in it
[2020-08-17] MEDS: enoxaparin 30 mg/0.3 mL Syringe SUBCUT (21:32)
[2020-08-18] VITALS (15 sets, daily range): BP systolic 109–124; BP diastolic 72–80; PULSE 77–96; RESP 18–20; TEMP 36.8–37.7; O2SAT 94–99
[2020-08-18] MEDS: HYDROmorphone 1 mg/mL INJ 1 mL 0.4 MG IVP ×6 (00:59→22:58)
[2020-08-18 02:49] LABS: Basophils % 0.2 %; Eosinophils # 0.1 10^3/uL (0.0-0.8); Eosinophils % 0.7 %; Hematocrit 36.2 % (37.0-47.0); Hemoglobin 11.6 g/dL (11.5-15.3); Lymphocytes # 2.8 10^3/uL (0.8-4.8); Lymphocytes % 23.5 %; Mean Corpuscular Hemoglobin 33.9 pg (28.0-34.0); Mean Corpuscular Volume 105.8 fL (81-99); Mean Platelet Volume 11.1 fL (7.4-10.4); Monocytes # 1.2 10^3/uL (0.2-0.9); Neutrophils # 7.85 10^3/uL (1.8-7.7); Neutrophils % 65.2 %; Nucleated Red Blood Cells % 0 %; Platelet Count 206 10^3/cmm (130-400); Red Blood Count 3.42 10^6/uL (4.1-5.3); Red Cell Distribution Width 13.2 % (12.1-15.1); White Blood Count 12.1 10^3/uL (4.0-10.0)
[2020-08-18] MEDS: HYDROcodone-acetaminophen 10-325 mg Tablet 1 TAB PO ×2 (02:51→11:02)
[2020-08-18 03:10] LABS: Anion Gap 12.1 (5-19); Blood Urea Nitrogen 10 mg/dL (6-20); Calcium 8.3 mg/dL (8.5-10.5); Carbon Dioxide 28 mmol/L (22-29); Chloride 104 mmol/L (98-107); Glomerular Filtration Rate 115.9 mL/min (90-130); Glucose 119 mg/dL (65-115); Osmolality Calculated 290 mOsm/kg (285-295); Potassium 4.1 mmol/L (3.5-5.1); Sodium 140 mmol/L (136-145)
[2020-08-18] MEDS: CLONazepam 1 mg Tablet 2 MG PO ×2 (08:46→18:43)
[2020-08-18] MEDS: lisinopril 5 mg Tablet PO (08:47)
[2020-08-18] MEDS: propranolol 40 mg Tablet PO ×3 (08:47→21:39)
[2020-08-18] MEDS: nicotine 14 mg Patch 1 PATCH TRANSDERMA (08:47)
[2020-08-18] MEDS: sennosides-docusate Tablet 1 TAB PO (08:47)
[2020-08-18] MEDS: enoxaparin 30 mg/0.3 mL Syringe SUBCUT ×2 (08:48→21:39)
[2020-08-18] MEDS: cefTRIAXone 2,000 MG in sodium chloride 0.9% (plus) 50 ML 100 MG IV (15:00)
[2020-08-18] MEDS: HYDROcodone-acetaminophen 5-325 mg Tablet 1 TAB PO ×3 (15:00→22:28)
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
[2020-08-19] VITALS (15 sets, daily range): BP systolic 119–144; BP diastolic 77–87; PULSE 77–97; RESP 14–20; TEMP 36.7–37.8; O2SAT 95–98
[2020-08-19] MEDS: HYDROmorphone 1 mg/mL INJ 1 mL IVP ×4 (02:35→23:20)
[2020-08-19] MEDS: HYDROcodone-acetaminophen 5-325 mg Tablet 1 TAB PO ×4 (04:21→19:38)
[2020-08-19] MEDS: CLONazepam 1 mg Tablet 2 MG PO ×4 (04:21→22:25)
[2020-08-19 05:24] LABS: Basophils % 0.4 %; Eosinophils # 0.1 10^3/uL (0.0-0.8); Eosinophils % 1.1 %; Hematocrit 36.2 % (37.0-47.0); Hemoglobin 11.9 g/dL (11.5-15.3); Lymphocytes # 2.5 10^3/uL (0.8-4.8); Lymphocytes % 27.5 %; Mean Corpuscular HGB Conc 32.9 g/dL (30.0-36.0); Mean Corpuscular Hemoglobin 33.8 pg (28.0-34.0); Mean Corpuscular Volume 102.8 fL (81-99); Mean Platelet Volume 11.2 fL (7.4-10.4); Monocytes # 0.9 10^3/uL (0.2-0.9); Neutrophils % 60.6 %; Nucleated Red Blood Cells % 0 %; Platelet Count 214 10^3/cmm (130-400); Red Blood Count 3.52 10^6/uL (4.1-5.3); Red Cell Distribution Width 12.9 % (12.1-15.1); White Blood Count 9.1 10^3/uL (4.0-10.0)
[2020-08-19 05:56] LABS: Anion Gap 13.2 (5-19); Blood Urea Nitrogen 7 mg/dL (6-20); Calcium 8.8 mg/dL (8.5-10.5); Carbon Dioxide 29 mmol/L (22-29); Chloride 98 mmol/L (98-107); Glomerular Filtration Rate 115.9 mL/min (90-130); Glucose 96 mg/dL (65-115); Osmolality Calculated 280 mOsm/kg (285-295); Potassium 4.2 mmol/L (3.5-5.1); Sodium 136 mmol/L (136-145)
[2020-08-19] MEDS: HYDROmorphone 1 mg/mL INJ 1 mL 0.4 MG IVP ×2 (06:16→10:19)
[2020-08-19] MEDS: lisinopril 5 mg Tablet PO (09:04)
[2020-08-19] MEDS: propranolol 40 mg Tablet PO ×3 (09:04→21:14)
[2020-08-19] MEDS: enoxaparin 30 mg/0.3 mL Syringe SUBCUT ×2 (09:05→21:14)
[2020-08-19] MEDS: sennosides-docusate Tablet 1 TAB PO (09:05)
[2020-08-19] MEDS: nicotine 14 mg Patch 1 PATCH TRANSDERMA (09:05)
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
[2020-08-19] MEDS: cefTRIAXone 2,000 MG in sodium chloride 0.9% (plus) 50 ML 100 MG IV (13:22)
--- NOTE | 2020-08-19 15:12 | PC.RESP ---
Smoking Cessation information sent to patient.
--- NOTE | 2020-08-19 16:10 | PC.OT ---
OT tx attempted. Pt lying in darkened room. Therapist encouraging pt to participate in OT tx and she declines stating I'm trying to get some sleep here . Therapist will return to attempt tx again in the morning.
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
[2020-08-20] VITALS (13 sets, daily range): BP systolic 85–151; BP diastolic 62–88; PULSE 72–92; RESP 13–24; TEMP 36.2–37.7; O2SAT 91–98
[2020-08-20] MEDS: HYDROcodone-acetaminophen 5-325 mg Tablet 1 TAB PO ×5 (00:20→21:01)
[2020-08-20] MEDS: HYDROmorphone 1 mg/mL INJ 1 mL IVP ×5 (03:13→23:00)
--- NOTE | 2020-08-20 05:11 | PC.NURSE ---
Shift Summary Patient had a lot of complaints of pain during first of the shift. She was yelling put in pain during rounding at change of shift. This nurse went and visited with pt on working on getting her pain under control during this shift. Patient had to be educated on pain meds have to be administered just as the physician has on the orders. She is receiving dilaudid Q4H and [place] Q4H. After getting a second dose of pain meds her pain seems to be more controlled. Patient has not been yelling and has been resting will since about midnight.
[2020-08-20] MEDS: propranolol 40 mg Tablet PO ×3 (08:32→21:00)
[2020-08-20] MEDS: sennosides-docusate Tablet 1 TAB PO (08:32)
[2020-08-20] MEDS: nicotine 14 mg Patch 1 PATCH TRANSDERMA (08:32)
[2020-08-20] MEDS: enoxaparin 30 mg/0.3 mL Syringe SUBCUT ×2 (08:32→21:00)
[2020-08-20] MEDS: CLONazepam 1 mg Tablet 2 MG PO ×3 (08:33→21:00)
[2020-08-20] MEDS: lisinopril 5 mg Tablet PO (08:33)
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
[2020-08-20] MEDS: cefTRIAXone 2,000 MG in sodium chloride 0.9% (plus) 50 ML 100 MG IV (14:44)
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
[2020-08-21] VITALS (10 sets, daily range): BP systolic 91–117; BP diastolic 62–89; PULSE 83–115; RESP 13–20; TEMP 36.7–37.7; O2SAT 97–99
[2020-08-21] MEDS: HYDROcodone-acetaminophen 5-325 mg Tablet 1 TAB PO ×3 (01:03→10:15)
[2020-08-21] MEDS: CLONazepam 1 mg Tablet 2 MG PO ×2 (03:06→10:15)
[2020-08-21] MEDS: HYDROmorphone 1 mg/mL INJ 1 mL IVP ×3 (03:06→13:17)
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
[2020-08-21] MEDS: sennosides-docusate Tablet 1 TAB PO (10:14)
[2020-08-21] MEDS: lisinopril 5 mg Tablet PO (10:14)
[2020-08-21] MEDS: propranolol 40 mg Tablet PO (10:14)
[2020-08-21] MEDS: enoxaparin 30 mg/0.3 mL Syringe SUBCUT (10:14)
[2020-08-21] MEDS: nicotine 14 mg Patch 1 PATCH TRANSDERMA (10:15)
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
--- NOTE | 2020-08-21 17:13 | PC.NURSE ---
PT HAS DONE OK TODAY. THE SURGEON AND HOSPITALIST BOTH HAVE BEEN IN WITH PT TODAY. A LOT OF EDUCATION AND TEACHING WAS WENT OVER WITH THIS PT BY MULTIPLE PEOPLE. PT HAS BEEN ADAMANT ABOUT GOING HOME WITH HER BOYFRIEND TODAY. PT WILL DISCHARGE TODAY. PT IS READY TO GO TODAY. PAIN HAS APPEARED TO BE A LITTLE BIT MORE UNDER CONTROL. TEACHING ON HOW TO GO TO THE BATHROOM, TRANSFERRING FROM WHEELCHAIR TO BED AND BATHROOM WAS DISCUSSED WITH PT BY MULTIPLE STAFF MEMBERS. THE IMPORTANCE OF REMAINING NON WEIGHT BEARING HAS BEEN DISCUSSED WITH PT SEVERAL TIMES WELL. PHYSICAL AND OCCUPATIONAL THERAPY BOTH WORKED WITH PT TODAY BEFORE SHE LEFT. DISCHARGE PAPERWORK WAS GONE OVER WITH PT. ALL QUESTIONS WERE ANSWERED. MEDICATION FOR PAIN PILLS WERE SENT WITH PT. [facility]. PT WAS HAVING TROUBLE PAYING FOR THE MEDICATIONS SO HER MOTHER WAS CALLED AND ARRANGEMENTS WERE MADE BETWEEN THE PT AND HER MOM. ALL OF PTS BELONGINGS WERE GATHERED. ANJ HAS BEEN CALLED TO TO COFFEE SUPERVISOR PT. SUPERVISOR PAINTING DEPARTMENT WAS CALLED ONCE ANJ ARRIVED TO PICK PT UP. PTS PRESCRIBED MEDICAL MARIJUANA WAS RETURNED TO HER BY THE SUPERVISOR PAINTING DEPARTMENT OUTSIDE OF THE HOSPITAL. PT SAFELY DISCHARGED FROM THE HOSPITAL AT 1625.
== END 2020-08-21 16:25 | disposition home or self-care (01) | DRG 493 ==
LOC: ER 17:36 → OR 17:50 → MEDSURG 20:14
PROVIDERS: Podiatrist Foot & Ankle Surgery; Admitting Provider Internal Medicine; Emergency Provider Student in an Organized Health Care Education/Training Program; PCP Nurse Practitioner Family; Visit Provider Internal Medicine
PROC: 0QSH3BZ Reposition Left Tibia with Monoplanar External Fixation Device, Percutaneous Approach (ICD-10-PCS; principal; 2020-08-16 18:00)
DX: S82.852B Displaced trimalleolar fracture of left lower leg, initial encounter for open fracture type I or II (principal); S92.142B Displaced dome fracture of left talus, initial encounter for open fracture; F33.3 Major depressive disorder, recurrent, severe with psychotic symptoms; S92.151A Displaced avulsion fracture (chip fracture) of right talus, initial encounter for closed fracture; V49.59XA Passenger injured in collision with other motor vehicles in traffic accident, initial encounter; S92.121A Displaced fracture of body of right talus, initial encounter for closed fracture; F41.1 Generalized anxiety disorder; I10 Essential (primary) hypertension; F43.12 Post-traumatic stress disorder, chronic; F41.0 Panic disorder [episodic paroxysmal anxiety]; F17.210 Nicotine dependence, cigarettes, uncomplicated; F15.90 Other stimulant use, unspecified, uncomplicated
CPT/HCPCS: 36415; 73030; 73600; 73610; 73700; 76000; 80048; 80306; 85025; 90471; 90714; 96365; 96372; 96375; 97162; 97166; 97530; 97535; 99285; C1713; J0330; J0690; J0696; J1100; J1170; J1650; J1885; J2405; J3490; J7030

== ENCOUNTER → 2020-08-26 16:19 | Outpatient (BNVA) | payer MEDICAID, SELFPAY | PROVIDERS: PCP Nurse Practitioner Family; Visit Provider Podiatrist Foot & Ankle Surgery | DX: M25.579 Pain in unspecified ankle and joints of unspecified foot (principal); S82.892E Other fracture of left lower leg, subsequent encounter for open fracture type I or II with routine healing; S92.101D Unspecified fracture of right talus, subsequent encounter for fracture with routine healing; V89.2XXD Person injured in unspecified motor-vehicle accident, traffic, subsequent encounter | CPT/HCPCS: 73610 ==

== ENCOUNTER 2020-09-01 18:08 | Observation (INO) | payer MEDICAID, SELFPAY ==
[2020-09-01] VITALS (8 sets, daily range): BP systolic 119–144; BP diastolic 68–84; PULSE 63–81; RESP 16–22; TEMP 36.4–37; O2SAT 98–99; BMI 40.7
[2020-09-01] MEDS: oxyCODONE-APAP 10-325 mg Tablet 1 TAB PO (18:45)
[2020-09-01] MEDS: CLONazepam 1 mg Tablet PO (18:45)
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
[2020-09-01] MEDS: enoxaparin 40 mg/0.4 mL Syringe SUBCUT (20:19)
[2020-09-01 20:24] LABS: Basophils % 0.2 %; Eosinophils # 0.1 10^3/uL (0.0-0.8); Eosinophils % 0.4 %; Hematocrit 35.3 % (37.0-47.0); Hemoglobin 11.9 g/dL (11.5-15.3); Lymphocytes # 2.6 10^3/uL (0.8-4.8); Lymphocytes % 19.6 %; Mean Corpuscular HGB Conc 33.7 g/dL (30.0-36.0); Mean Corpuscular Hemoglobin 34.4 pg (28.0-34.0); Mean Platelet Volume 10.4 fL (7.4-10.4); Monocytes # 0.8 10^3/uL (0.2-0.9); Monocytes % 6.2 %; Neutrophils # 9.72 10^3/uL (1.8-7.7); Neutrophils % 72.9 %; Nucleated Red Blood Cells % 0 %; Platelet Count 529 10^3/cmm (130-400); Red Blood Count 3.46 10^6/uL (4.1-5.3); Red Cell Distribution Width 13.7 % (12.1-15.1); White Blood Count 13.3 10^3/uL (4.0-10.0)
[2020-09-01] MEDS: ketorolac 30 mg/mL INJ IVP (20:26)
[2020-09-01 20:48] LABS: SARS Covid-2 Antigen Negative (Negative)
[2020-09-01 20:52] LABS: Alanine Aminotransferase 45 U/L (0-33); Albumin Level 4.4 g/dL (3.5-5.2); Alkaline Phosphatase 85 IU/L (35-105); Anion Gap 15.8 (5-19); Aspartate Amino Transferase 30 U/L (0-32); Blood Urea Nitrogen 16 mg/dL (6-20); Calcium 9.5 mg/dL (8.5-10.5); Carbon Dioxide 27 mmol/L (22-29); Chloride 102 mmol/L (98-107); Globulin 2.2 g/dL (1.3-4.6); Glomerular Filtration Rate 83.1 mL/min (90-130); Glucose 131 mg/dL (65-115); Osmolality Calculated 295 mOsm/kg (285-295); Potassium 3.8 mmol/L (3.5-5.1); Sodium 141 mmol/L (136-145); Total Bilirubin 0.3 mg/dL (0.15-1.2); Total Protein 6.6 g/dL (6.6-8.7)
[2020-09-01] MEDS: nicotine 21 mg Patch 1 PATCH TRANSDERMA (21:38)
[2020-09-02] VITALS (13 sets, daily range): BP systolic 96–124; BP diastolic 63–81; PULSE 65–94; RESP 14–20; TEMP 36.3–36.8; O2SAT 95–99
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
[2020-09-02] MEDS: CLONazepam 1 mg Tablet PO ×3 (03:32→21:21)
[2020-09-02] MEDS: oxyCODONE-APAP 10-325 mg Tablet 1 TAB PO ×6 (03:32→23:27)
[2020-09-02] MEDS: neomycin-poly-bacitracin oint 28 gm 1 APPLIC TOPICAL (03:50)
[2020-09-02 05:24] LABS: Basophils % 0.3 %; Eosinophils # 0.1 10^3/uL (0.0-0.8); Hematocrit 36.6 % (37.0-47.0); Hemoglobin 12.4 g/dL (11.5-15.3); Lymphocytes # 2.6 10^3/uL (0.8-4.8); Lymphocytes % 26.5 %; Mean Corpuscular HGB Conc 33.9 g/dL (30.0-36.0); Mean Corpuscular Hemoglobin 34.7 pg (28.0-34.0); Mean Corpuscular Volume 102.5 fL (81-99); Mean Platelet Volume 10.4 fL (7.4-10.4); Monocytes # 0.8 10^3/uL (0.2-0.9); Monocytes % 7.5 %; Neutrophils # 6.35 10^3/uL (1.8-7.7); Neutrophils % 63.9 %; Nucleated Red Blood Cells % 0 %; Platelet Count 358 10^3/cmm (130-400); Red Blood Count 3.57 10^6/uL (4.1-5.3); Red Cell Distribution Width 13.9 % (12.1-15.1); White Blood Count 9.9 10^3/uL (4.0-10.0)
[2020-09-02] MEDS: morphine 4 mg/mL SDV 1 mL IVP (06:07)
[2020-09-02] MEDS: montelukast sodium 10 mg Tablet PO (08:37)
[2020-09-02] MEDS: propranolol 40 mg Tablet 20 MG PO ×2 (08:37→15:55)
[2020-09-02] MEDS: lisinopril 5 mg Tablet PO (08:38)
[2020-09-02] MEDS: enoxaparin 40 mg/0.4 mL Syringe SUBCUT (08:38)
[2020-09-02] MEDS: doxycycline 100 mg Tablet PO ×2 (08:38→17:33)
[2020-09-02] MEDS: escitalopram 10 mg Tablet PO (08:38)
[2020-09-02] MEDS: gabapentin 100 mg Capsule PO ×2 (08:38→17:33)
[2020-09-02] MEDS: nicotine 21 mg Patch 1 PATCH TRANSDERMA ×2 (08:48→23:26)
[2020-09-02] MEDS: nicotine 2 mg Gum BUCCAL ×3 (08:48→21:21)
[2020-09-02] MEDS: cyclobenzaprine 10 mg Tablet PO ×2 (10:51→18:56)
--- NOTE | 2020-09-02 12:48 | PM.PN ---
Subjective Subjective: Interval history: She is crying upon entering the room, being consoled by her nurse. States that she is bothered by pain, states that she does not like taking pain medications, but needs something right now. Apart from the denies additional complaints. Vitals/I&O/Wt Last Vital Signs Temp 97.7 F 09/02/20 11:41 Pulse 65 09/02/20 11:41 Resp 20 H 09/02/20 12:05 BP 119/78 09/02/20 11:41 Pulse Ox 99 09/02/20 11:41 09/01/20 09/02/20 09/02/20 22:59 06:59 14:59 Intake Total 460 / 460 360 / 820 360 / 360 Balance 460 / 460 360 / 820 360 / 360 Weight last 48 hrs Weight 104.326 kg Physical Exam Const: COMMON NORMALS: no acute distress and patient oriented x3 NUTRITIONAL APPEARANCE: obese HENMT: COMMON NORMALS: oropharynx normal Neck/C-Spine: COMMON NORMALS: no JVD Resp: COMMON NORMALS: normal respiratory effort and clear to auscultation bilaterally AUSCULTATION: clear to auscultation bilaterally Cardio: COMMON NORMALS: no JVD, regular rhythm, S1 normal heart sound present, S2 normal heart sound present and No murmurs present (Cardio) RHYTHM: regular rhythm HEART SOUNDS: S1 normal heart sound present and S2 normal heart sound present GI: COMMON NORMALS: Normal to inspection, nondistended, normoactive bowel sounds present, Soft to palpation and non-tender PALPATION: Yes Soft to palpation Extremity: COMMON NORMALS: no joint enlargement and no pedal edema OTHER: Boot on the right. External fixator at the left ankle, gauze dressing without bleeding or strikethrough. Neuro: COMMON NORMALS: patient oriented x3 and moves all extremities Skin: COMMON NORMALS: no rashes or lesions noted GENERAL SKIN EXAM: no rashes or lesions noted Data : 09/02/20 05:06 09/01/20 20:12 A&P Assessment and plan (1) Traumatic bilateral lower extremity fractures: Complaining of pain in her ankles, currently severe, 01/01. Discussed with podiatry, appreciate consultation with regards to recent fractures, fixator in place on the left. Status: Acute (2) Unable to care for self: Appreciate discharge planning consultation. Arrangements for placement to fdc facility. Status: Acute (3) Generalized anxiety disorder with panic attacks: Status: Chronic (4) Chronic post-traumatic stress disorder: Status: Chronic (5) Major depressive disorder, recurrent, severe with psychotic symptoms: Status: Chronic (6) Medical marijuana use: Status: Chronic Attestations Medical Necessity Statement*: Continue hospitalization due to severe pain of ankles following multiple fractures, recent surgery, podiatry assessment, nonambulatory status, disposition planning. Coding Level of Care Code Acute Interactive Media Marketing Strategist for [facility] Fwd Diagnoses Traumatic bilateral lower extremity fractures S82.91XA; S82.92XA Unable to care for self Z78.9 Generalized anxiety disorder with panic attacks F41.1; F41.0 Chronic post-traumatic stress disorder F43.12 Major depressive disorder, recurrent, severe with psychotic symptoms F33.3 Medical marijuana use Z79.899
--- NOTE | 2020-09-02 19:01 | PC.NURSE ---
per dr. murphy okay to give percocet now.
[2020-09-02] MEDS: acetaminophen 325 mg Tablet 650 MG PO (22:02)
[2020-09-03] VITALS (10 sets, daily range): BP systolic 95–110; BP diastolic 59–75; PULSE 62–87; RESP 14–18; TEMP 36.4–36.7; O2SAT 95–97
[2020-09-03] MEDS: oxyCODONE-APAP 10-325 mg Tablet 1 TAB PO ×5 (03:49→20:26)
[2020-09-03] MEDS: cyclobenzaprine 10 mg Tablet PO ×3 (03:53→18:13)
[2020-09-03] MEDS: montelukast sodium 10 mg Tablet PO (08:19)
[2020-09-03] MEDS: doxycycline 100 mg Tablet PO ×2 (08:19→17:36)
[2020-09-03] MEDS: gabapentin 100 mg Capsule PO ×2 (08:20→17:36)
[2020-09-03] MEDS: escitalopram 10 mg Tablet PO (08:21)
[2020-09-03] MEDS: enoxaparin 40 mg/0.4 mL Syringe SUBCUT (08:26)
[2020-09-03] MEDS: CLONazepam 1 mg Tablet PO ×2 (08:26→20:26)
[2020-09-03] MEDS: nicotine 2 mg Gum BUCCAL ×2 (10:32→18:24)
[2020-09-03] MEDS: neomycin-poly-bacitracin oint 28 gm 1 APPLIC TOPICAL ×2 (10:32→17:37)
--- NOTE | 2020-09-03 21:40 | PM.PN ---
Subjective Subjective: Interval history: Bothered by pain in both ankles, continues to bother her, she states she tries not to bother nursing staff, but needs something for pain. Vitals/I&O/Wt Last Vital Signs Temp 98.0 F 09/03/20 20:00 Pulse 74 09/03/20 20:00 Resp 14 09/03/20 20:26 BP 110/75 09/03/20 20:00 Pulse Ox 97 09/03/20 20:00 09/03/20 09/03/20 09/03/20 06:59 14:59 22:59 Intake Total 480 / 480 Output Total 400 / 400 Balance -400 / 560 480 / 480 Physical Exam Const: COMMON NORMALS: no acute distress and patient oriented x3 NUTRITIONAL APPEARANCE: obese HENMT: COMMON NORMALS: oropharynx normal Neck/C-Spine: COMMON NORMALS: no JVD Resp: COMMON NORMALS: normal respiratory effort and clear to auscultation bilaterally AUSCULTATION: clear to auscultation bilaterally Cardio: COMMON NORMALS: no JVD, regular rhythm, S1 normal heart sound present, S2 normal heart sound present and No murmurs present (Cardio) RHYTHM: regular rhythm HEART SOUNDS: S1 normal heart sound present and S2 normal heart sound present GI: COMMON NORMALS: Normal to inspection, nondistended, normoactive bowel sounds present, Soft to palpation and non-tender PALPATION: Yes Soft to palpation Extremity: COMMON NORMALS: no joint enlargement and no pedal edema OTHER: Boot on the right. External fixator at the left ankle, gauze dressing without bleeding or strikethrough. Neuro: COMMON NORMALS: patient oriented x3 and moves all extremities Skin: COMMON NORMALS: no rashes or lesions noted GENERAL SKIN EXAM: no rashes or lesions noted Data : 09/02/20 05:06 09/01/20 20:12 A&P Assessment and plan (1) Traumatic bilateral lower extremity fractures: Still having pain in her ankles. We advanced her pain medication today. States that she gets partial relief in pain, although does not expect that the pain will go away entirely. Discussed with podiatry, appreciate consultation with regards to recent fractures, fixator in place on the left. Status: Acute (2) Unable to care for self: Appreciate discharge planning consultation. Arrangements for placement to intermediate facility. Status: Acute (3) Generalized anxiety disorder with panic attacks: Status: Chronic (4) Chronic post-traumatic stress disorder: Status: Chronic (5) Major depressive disorder, recurrent, severe with psychotic symptoms: Status: Chronic (6) Medical marijuana use: Status: Chronic Additional A&P Information Smoking addiction: Nicotine replacement. Attestations Medical Necessity Statement*: Continue hospitalization for optimization of pain control with bilateral foot/ankle fractures, left ankle fixator and persistent pain, reassessment by podiatry, disposition arrangements for placement to intermediate facility due to inability to care for self independently and inadequate social support. Coding Level of Care Code Acute Radio Interference Investigator for [facility] Fwd Diagnoses Traumatic bilateral lower extremity fractures S82.91XA; S82.92XA Unable to care for self Z78.9 Generalized anxiety disorder with panic attacks F41.1; F41.0 Chronic post-traumatic stress disorder F43.12 Major depressive disorder, recurrent, severe with psychotic symptoms F33.3 Medical marijuana use Z79.899
[2020-09-04] VITALS (12 sets, daily range): BP systolic 98–116; BP diastolic 63–77; PULSE 74–88; RESP 16–20; TEMP 36.4–36.9; O2SAT 96–100
[2020-09-04] MEDS: oxyCODONE-APAP 10-325 mg Tablet 1 TAB PO ×5 (00:51→19:55)
[2020-09-04] MEDS: nicotine 21 mg Patch 1 PATCH TRANSDERMA (00:53)
[2020-09-04] MEDS: nicotine 2 mg Gum BUCCAL ×4 (00:54→21:30)
[2020-09-04] MEDS: cyclobenzaprine 10 mg Tablet PO ×3 (03:09→21:34)
[2020-09-04] MEDS: doxycycline 100 mg Tablet PO ×2 (09:12→17:38)
[2020-09-04] MEDS: CLONazepam 1 mg Tablet PO ×2 (09:12→21:31)
[2020-09-04] MEDS: enoxaparin 40 mg/0.4 mL Syringe SUBCUT (09:12)
[2020-09-04] MEDS: montelukast sodium 10 mg Tablet PO (09:13)
[2020-09-04] MEDS: escitalopram 10 mg Tablet PO (09:14)
[2020-09-04] MEDS: neomycin-poly-bacitracin oint 28 gm 1 APPLIC TOPICAL ×2 (09:14→17:40)
[2020-09-04] MEDS: gabapentin 100 mg Capsule PO ×2 (09:14→17:39)
[2020-09-04] MEDS: morphine 4 mg/mL SDV 1 mL 2 MG IVP ×2 (11:34→17:40)
--- NOTE | 2020-09-04 16:56 | P.PN_ITS ---
Subjective Subjective: Interval history: Patient was seen this morning, she continues to have severe ankle pain, is on Percocet 10-325 1 tab every 4 hours, she tells me that Dr. Lizarraga has seen her this morning, no fevers, no chills, no chest pain Vitals/I&O/Wt Last Vital Signs Temp 98.4 F 09/04/20 16:00 Pulse 74 09/04/20 16:00 Resp 16 09/04/20 16:00 BP 115/76 09/04/20 16:00 Pulse Ox 96 09/04/20 16:00 09/04/20 09/04/20 09/04/20 06:59 14:59 22:59 Intake Total 120 / 120 Balance 120 / 120 Physical Exam Const: COMMON NORMALS: no acute distress and patient oriented x3 Resp: COMMON NORMALS: normal respiratory effort, No retractions, No use of accessory muscles and clear to auscultation bilaterally AUSCULTATION: clear to auscultation bilaterally Cardio: COMMON NORMALS: regular rate, regular rhythm, S1 normal heart sound present and S2 normal heart sound present RATE: regular rate RHYTHM: regular rhythm HEART SOUNDS: S1 normal heart sound present and S2 normal heart sound present GI: COMMON NORMALS: Normal to inspection, nondistended, normoactive bowel sounds present, Soft to palpation and No hepatosplenomegaly present PALPATION: Yes Soft to palpation and Yes No hepatosplenomegaly present Extremity: COMMON NORMALS: no pedal edema Neuro: COMMON NORMALS: patient oriented x3 Psych: COMMON NORMALS: mental status grossly normal Data : 09/02/20 05:06 09/01/20 20:12 A&P Assessment and plan (1) Traumatic bilateral lower extremity fractures: Still having pain in her ankles. Continue Percocet, add morphine for breakthrough pain. States that she gets partial relief in pain, although does not expect that the pain will go away entirely. Discussed with podiatry, appreciate consultation with regards to recent fractures, fixator in place on the left. Status: Acute (2) Unable to care for self: Appreciate discharge planning consultation. Arrangements for placement to fdc facility. Status: Acute (3) Generalized anxiety disorder with panic attacks: Status: Chronic (4) Chronic post-traumatic stress disorder: Status: Chronic (5) Major depressive disorder, recurrent, severe with psychotic symptoms: Status: Chronic (6) Medical marijuana use: Status: Chronic Additional A&P Information Smoking addiction: Nicotine replacement. Attestations Medical Necessity Statement*: Patient requires hospitalization for traumatic bilateral extremity fractures, requiring pain control, PT OT Coding Level of Care Code Acute Learning And Development Associate for [facility] Fwd Diagnoses Traumatic bilateral lower extremity fractures S82.91XA; S82.92XA Unable to care for self Z78.9 Generalized anxiety disorder with panic attacks F41.1; F41.0 Chronic post-traumatic stress disorder F43.12 Major depressive disorder, recurrent, severe with psychotic symptoms F33.3 Medical marijuana use Z79.899
[2020-09-04] MEDS: sennosides 8.6 mg Tablet 17.2 MG PO (21:31)
[2020-09-05] VITALS (16 sets, daily range): BP systolic 106–119; BP diastolic 66–77; PULSE 79–89; RESP 12–22; TEMP 36.4–36.8; O2SAT 96–99
[2020-09-05] MEDS: nicotine 21 mg Patch 1 PATCH TRANSDERMA ×2 (00:15→21:27)
[2020-09-05] MEDS: morphine 4 mg/mL SDV 1 mL 2 MG IVP ×5 (00:17→23:26)
[2020-09-05] MEDS: oxyCODONE-APAP 10-325 mg Tablet 1 TAB PO ×5 (02:09→21:28)
[2020-09-05] MEDS: nicotine 2 mg Gum BUCCAL ×3 (06:09→17:40)
[2020-09-05] MEDS: montelukast sodium 10 mg Tablet PO (09:01)
[2020-09-05] MEDS: enoxaparin 40 mg/0.4 mL Syringe SUBCUT (09:01)
[2020-09-05] MEDS: gabapentin 100 mg Capsule PO ×2 (09:02→17:34)
[2020-09-05] MEDS: escitalopram 10 mg Tablet PO (09:02)
[2020-09-05] MEDS: doxycycline 100 mg Tablet PO ×2 (09:02→17:33)
[2020-09-05] MEDS: cyclobenzaprine 10 mg Tablet PO (09:02)
[2020-09-05] MEDS: neomycin-poly-bacitracin oint 28 gm 1 APPLIC TOPICAL ×2 (09:03→19:23)
[2020-09-05] MEDS: CLONazepam 1 mg Tablet PO ×2 (09:22→21:28)
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
--- NOTE | 2020-09-05 12:19 | PC.OT ---
OT tx attempted at 1130. Pt reports she had already washed up,brushed her teeth and have been doing my arm exercises every hour . Therapist asked pt if she felt she needed to continue on OT services. Pt states oh I need you just not today. I'm not feeling good . Continue OT services until pt has met OT goals.
--- NOTE | 2020-09-05 16:42 | PM.PN ---
Subjective Medications: Medication Review Details: I personally reviewed home medication list Vitals/I&O/Wt Last Vital Signs Temp 98.1 F 09/05/20 16:00 Pulse 89 09/05/20 16:00 Resp 18 09/05/20 16:00 BP 106/66 09/05/20 16:00 Pulse Ox 97 09/05/20 16:00 09/05/20 09/05/20 09/05/20 06:59 14:59 22:59 Intake Total 300 / 1133 480 / 480 Output Total 600 / 600 Balance -300 / 533 480 / 480 Physical Exam Const: COMMON NORMALS: no acute distress and patient oriented x3 Resp: COMMON NORMALS: normal respiratory effort, No retractions, No use of accessory muscles and clear to auscultation bilaterally AUSCULTATION: clear to auscultation bilaterally Cardio: COMMON NORMALS: regular rate, regular rhythm, S1 normal heart sound present and S2 normal heart sound present RATE: regular rate RHYTHM: regular rhythm HEART SOUNDS: S1 normal heart sound present and S2 normal heart sound present GI: COMMON NORMALS: Normal to inspection, nondistended, normoactive bowel sounds present, Soft to palpation and No hepatosplenomegaly present PALPATION: Yes Soft to palpation and Yes No hepatosplenomegaly present Extremity: COMMON NORMALS: no pedal edema NARRATIVE EXTREMITY EXAM: Right lower extremity in a boot, left lower extremity in external fixator Neuro: COMMON NORMALS: patient oriented x3 Psych: COMMON NORMALS: mental status grossly normal Data : 09/02/20 05:06 09/01/20 20:12 A&P Assessment and plan (1) Traumatic bilateral lower extremity fractures: Still having pain in her ankles. Continue Percocet, add morphine for breakthrough pain. States that she gets partial relief in pain, although does not expect that the pain will go away entirely. Discussed with podiatry, appreciate consultation with regards to recent fractures, fixator in place on the left. Status: Acute (2) Unable to care for self: Appreciate discharge planning consultation. Arrangements for placement to nursing home facility. Status: Acute (3) Generalized anxiety disorder with panic attacks: Status: Chronic (4) Chronic post-traumatic stress disorder: Status: Chronic (5) Major depressive disorder, recurrent, severe with psychotic symptoms: Status: Chronic (6) Medical marijuana use: Status: Chronic Additional A&P Information Smoking addiction: Nicotine replacement. 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
[2020-09-05] MEDS: propranolol 40 mg Tablet 20 MG PO (21:28)
[2020-09-06] VITALS (15 sets, daily range): BP systolic 105–120; BP diastolic 64–78; PULSE 77–90; RESP 16–18; TEMP 36.2–36.8; O2SAT 92–97
[2020-09-06] MEDS: nicotine 2 mg Gum BUCCAL ×5 (01:45→23:51)
[2020-09-06] MEDS: cyclobenzaprine 10 mg Tablet PO ×2 (03:57→14:02)
[2020-09-06] MEDS: morphine 4 mg/mL SDV 1 mL 2 MG IVP ×4 (05:15→23:46)
[2020-09-06] MEDS: oxyCODONE-APAP 10-325 mg Tablet 1 TAB PO ×5 (05:44→22:39)
[2020-09-06] MEDS: doxycycline 100 mg Tablet PO ×2 (08:20→17:46)
[2020-09-06] MEDS: propranolol 40 mg Tablet 20 MG PO ×2 (08:20→14:17)
[2020-09-06] MEDS: CLONazepam 1 mg Tablet PO ×2 (08:20→20:45)
[2020-09-06] MEDS: lisinopril 5 mg Tablet PO (08:21)
[2020-09-06] MEDS: gabapentin 100 mg Capsule PO ×2 (08:21→17:46)
[2020-09-06] MEDS: neomycin-poly-bacitracin oint 28 gm 1 APPLIC TOPICAL (08:21)
[2020-09-06] MEDS: escitalopram 10 mg Tablet PO (08:21)
[2020-09-06] MEDS: enoxaparin 40 mg/0.4 mL Syringe SUBCUT (08:21)
[2020-09-06] MEDS: montelukast sodium 10 mg Tablet PO (08:21)
--- NOTE | 2020-09-06 12:40 | P.PN_ITS ---
Subjective Subjective: Interval history: Patient was seen this morning, she is resting in bed, she continues to complain of breakthrough pain, afebrile overnight, no shortness of breath, no chest pain Vitals/I&O/Wt Last Vital Signs Temp 97.6 F 09/06/20 12:00 Pulse 90 09/06/20 12:00 Resp 16 09/06/20 12:00 BP 112/78 09/06/20 12:00 Pulse Ox 96 09/06/20 12:00 09/05/20 09/06/20 09/06/20 22:59 06:59 14:59 Intake Total 840 / 1320 120 / 1440 240 / 240 Output Total 600 / 600 Balance 240 / 720 120 / 840 240 / 240 Physical Exam Const: COMMON NORMALS: no acute distress and patient oriented x3 Resp: COMMON NORMALS: normal respiratory effort, No retractions, No use of accessory muscles and clear to auscultation bilaterally AUSCULTATION: clear to auscultation bilaterally Cardio: COMMON NORMALS: regular rate, regular rhythm, S1 normal heart sound present and S2 normal heart sound present RATE: regular rate RHYTHM: regular rhythm HEART SOUNDS: S1 normal heart sound present and S2 normal heart sound present GI: COMMON NORMALS: Normal to inspection, nondistended, normoactive bowel sounds present, Soft to palpation and non-tender PALPATION: Yes Soft to palpation Extremity: COMMON NORMALS: no pedal edema NARRATIVE EXTREMITY EXAM: Right lower extremity in a boot, left lower extremity in external fixator Neuro: COMMON NORMALS: patient oriented x3 Data : 09/02/20 05:06 09/01/20 20:12 A&P Assessment and plan (1) Traumatic bilateral lower extremity fractures: Still having pain in her ankles. Continue Percocet, add morphine for breakthrough pain. States that she gets partial relief in pain, although does not expect that the pain will go away entirely. Discussed with podiatry, appreciate consultation with regards to recent fractures, fixator in place on the left. Full code Lovenox for DVT prophylaxis Status: Acute (2) Unable to care for self: Appreciate discharge planning consultation. [facility] facility. Status: Acute (3) Generalized anxiety disorder with panic attacks: Status: Chronic (4) Chronic post-traumatic stress disorder: Status: Chronic (5) Major depressive disorder, recurrent, severe with psychotic symptoms: Status: Chronic (6) Medical marijuana use: Status: Chronic Additional A&P Information Smoking addiction: Nicotine replacement. 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
--- NOTE | 2020-09-06 18:30 | PC.NURSE ---
SHIFT SUMMARY PATIENT HAS BEEN RESTING WELL TODAY. SHE STILL ASKS FOR PAIN MEDICATION BEFORE IT IS DUE. THIS NURSE EXPLAINED THE MEDICATION REGIMEN TO THE PATIENT AND SHE VERBALLY STATED SHE UNDERSTOOD. PATIENT CONTINUED TO PUSH CALL LIGHT TO ASK FOR PAIN MEDICATION. PATIENT HAS BEEN PLEASANT. GOOD URINE OUTPUT.
[2020-09-06] MEDS: nicotine 21 mg Patch 1 PATCH TRANSDERMA (23:51)
[2020-09-07] VITALS (17 sets, daily range): BP systolic 96–136; BP diastolic 62–84; PULSE 77–91; RESP 16–20; TEMP 36.4–37; O2SAT 96–99
[2020-09-07] MEDS: oxyCODONE-APAP 10-325 mg Tablet 1 TAB PO ×5 (03:38→22:08)
[2020-09-07] MEDS: morphine 4 mg/mL SDV 1 mL 2 MG IVP ×3 (05:43→18:20)
[2020-09-07] MEDS: nicotine 2 mg Gum BUCCAL ×4 (05:48→22:09)
[2020-09-07] MEDS: enoxaparin 40 mg/0.4 mL Syringe SUBCUT (07:39)
[2020-09-07] MEDS: escitalopram 10 mg Tablet PO (07:40)
[2020-09-07] MEDS: gabapentin 100 mg Capsule PO ×2 (07:40→16:45)
[2020-09-07] MEDS: doxycycline 100 mg Tablet PO ×2 (07:40→16:45)
[2020-09-07] MEDS: montelukast sodium 10 mg Tablet PO (07:40)
[2020-09-07] MEDS: lisinopril 5 mg Tablet PO (07:40)
[2020-09-07] MEDS: propranolol 40 mg Tablet 20 MG PO ×2 (07:46→14:43)
[2020-09-07] MEDS: CLONazepam 1 mg Tablet PO (08:59)
--- NOTE | 2020-09-07 12:05 | P.PN_ITS ---
Subjective Subjective: Interval history: patient was seen this morning no chest pain, no shortness of beath no fevers, is getting up with the help of physical therapy, pain is better controlled this am Vitals/I&O/Wt Last Vital Signs Temp 97.9 F 09/07/20 11:45 Pulse 82 09/07/20 11:45 Resp 18 09/07/20 11:47 BP 103/70 09/07/20 11:45 Pulse Ox 97 09/07/20 11:45 09/06/20 09/07/20 09/07/20 22:59 06:59 14:59 Intake Total 240 / 600 740 / 1340 400 / 400 Output Total 550 / 675 475 / 1150 200 / 200 Balance -310 / -75 265 / 190 200 / 200 Physical Exam Const: COMMON NORMALS: no acute distress and patient oriented x3 Resp: COMMON NORMALS: normal respiratory effort, No retractions, No use of accessory muscles and clear to auscultation bilaterally AUSCULTATION: clear t o auscultation bilaterally Cardio: COMMON NORMALS: regular rate, regular rhythm, S1 normal heart sound present and S2 normal heart sound present RATE: regular rate RHYTHM: regular rhythm HEART SOUNDS: S1 normal heart sound present and S2 normal heart sound present GI: COMMON NORMALS: Normal to inspection, nondistended, normoactive bowel sounds present, Soft to palpation and non-tender PALPATION: Yes Soft to palpation Extremity: COMMON NORMALS: no pedal edema NARRATIVE EXTREMITY EXAM: Right lower extremity in a boot, left lower extremity in external fixator Neuro: COMMON NORMALS: patient oriented x3 Psych: COMMON NORMALS: mental status grossly normal Data : 09/02/20 05:06 09/01/20 20:12 A&P Assessment and plan (1) Traumatic bilateral lower extremity fractures: Still having pain in her ankles. Continue Percocet, add morphine for breakthrough pain. States that she gets partial relief in pain, although does not expect that the pain will go away entirely. Discussed with podiatry, appreciate consultation with regards to recent fractures, fixator in place on the left. IC and flutter valve up out of bed with PTOT Full code Lovenox for DVT prophylaxis Status: Acute (2) Unable to care for self: Appreciate discharge planning consultation. Arrangements for placement to [facility]. Status: Acute (3) Generalized anxiety disorder with panic attacks: Status: Chronic (4) Chronic post-traumatic stress disorder: Status: Chronic (5) Major depressive disorder, recurrent, severe with psychotic symptoms: Status: Chronic (6) Medical marijuana use: Status: Chronic Additional A&P Information Smoking addiction: Nicotine replacement. 

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
[2020-09-07] MEDS: cyclobenzaprine 10 mg Tablet PO (14:46)
[2020-09-08] VITALS (10 sets, daily range): BP systolic 105–119; BP diastolic 69–77; PULSE 80–93; RESP 16–18; TEMP 36.1–36.8; O2SAT 97–99
[2020-09-08] MEDS: nicotine 21 mg Patch 1 PATCH TRANSDERMA (00:53)
[2020-09-08] MEDS: morphine 4 mg/mL SDV 1 mL 2 MG IVP ×2 (00:53→07:45)
[2020-09-08] MEDS: CLONazepam 1 mg Tablet PO ×2 (01:14→13:25)
[2020-09-08] MEDS: oxyCODONE-APAP 10-325 mg Tablet 1 TAB PO ×4 (02:38→18:52)
[2020-09-08] MEDS: nicotine 2 mg Gum BUCCAL ×3 (07:48→19:56)
[2020-09-08] MEDS: escitalopram 10 mg Tablet PO (07:49)
[2020-09-08] MEDS: enoxaparin 40 mg/0.4 mL Syringe SUBCUT (07:49)
[2020-09-08] MEDS: lisinopril 5 mg Tablet PO (07:49)
[2020-09-08] MEDS: doxycycline 100 mg Tablet PO ×2 (07:49→17:33)
[2020-09-08] MEDS: gabapentin 100 mg Capsule PO ×2 (07:49→17:33)
[2020-09-08] MEDS: montelukast sodium 10 mg Tablet PO (07:49)
[2020-09-08] MEDS: cyclobenzaprine 10 mg Tablet PO ×2 (07:53→20:18)
[2020-09-08] MEDS: propranolol 40 mg Tablet 20 MG PO ×3 (07:53→20:18)
--- NOTE | 2020-09-08 12:08 | PM.PN ---
Subjective Subjective: Interval history: Patient was seen this morning, she tells me that she has been working with the incentive spirometer and flutter valve, working with physical therapy, no fevers overnight, chest pain, no shortness of breath Vitals/I&O/Wt Last Vital Signs Temp 97.3 F L 09/08/20 11:16 Pulse 88 09/08/20 11:16 Resp 16 09/08/20 11:16 BP 105/73 09/08/20 11:16 Pulse Ox 97 09/08/20 11:16 09/07/20 09/08/20 09/08/20 22:59 06:59 14:59 Intake Total 500 / 1380 100 / 1480 600 / 600 Output Total 300 / 500 800 / 1300 Balance 200 / 880 -700 / 180 600 / 600 Physical Exam Const: COMMON NORMALS: no acute distress and patient oriented x3 Resp: COMMON NORMALS: normal respiratory effort, No retractions, No use of accessory muscles and clear to auscultation bilaterally AUSCULTATION: clear to auscultation bilaterally Cardio: COMMON NORMALS: regular rate, regular rhythm, S1 normal heart sound present and S2 normal heart sound present RATE: regular rate RHYTHM: regular rhythm HEART SOUNDS: S1 normal heart sound present and S2 normal heart sound present GI: COMMON NORMALS: Normal to inspection, nondistended, normoactive bowel sounds present, Soft to palpation and non-tender PALPATION: Yes Soft to palpation Extremity: COMMON NORMALS: no pedal edema NARRATIVE EXTREMITY EXAM: Right lower extremity in a boot, left lower extremity in external fixator Neuro: COMMON NORMALS: patient oriented x3 Psych: COMMON NORMALS: mental status grossly normal Data : 09/02/20 05:06 09/01/20 20:12 A&P Assessment and plan (1) Traumatic bilateral lower extremity fractures: Still having pain in her ankles. Oxycodone 10/325 q4hrs prn Decrease morphine 10 mg, space out to every 8 hours as needed States that she gets partial relief in pain, although does not expect that the pain will go away entirely. Discussed with podiatry, appreciate consultation with regards to recent fractures, fixator in place on the left. IC and flutter valve up out of bed with PTOT Full code Lovenox for DVT prophylaxis Status: Acute (2) Unable to care for self: Appreciate discharge planning consultation. Arrangements for placement to half-way facility. Status: Acute (3) Generalized anxiety disorder with panic attacks: Status: Chronic (4) Chronic post-traumatic stress disorder: Status: Chronic (5) Major depressive disorder, recurrent, severe with psychotic symptoms: Status: Chronic (6) Medical marijuana use: Status: Chronic Additional A&P Information Smoking addiction: Nicotine replacement. Attestations Medical Necessity Statement*: Patient requires hospitalization for bilateral ankle fractures, pain control Coding Level of Care Code Acute Manager Software Development for [facility] Diagnoses Traumatic bilateral lower extremity fractures S82.91XA; S82.92XA Unable to care for self Z78.9 Generalized anxiety disorder with panic attacks F41.1; F41.0 Chronic post-traumatic stress disorder F43.12 Major depressive disorder, recurrent, severe with psychotic symptoms F33.3 Medical marijuana use Z79.899
[2020-09-08] MEDS: morphine 4 mg/mL SDV 1 mL 1 MG IVP (19:55)
[2020-09-09] VITALS (14 sets, daily range): BP systolic 90–120; BP diastolic 57–78; PULSE 68–88; RESP 14–18; TEMP 36.5–36.7; O2SAT 95–99
[2020-09-09] MEDS: oxyCODONE-APAP 10-325 mg Tablet 1 TAB PO ×6 (00:16→23:02)
[2020-09-09] MEDS: nicotine 2 mg Gum BUCCAL ×4 (00:18→17:37)
[2020-09-09] MEDS: CLONazepam 1 mg Tablet PO ×2 (02:36→14:08)
[2020-09-09] MEDS: morphine 4 mg/mL SDV 1 mL 1 MG IVP ×2 (05:44→17:35)
[2020-09-09] MEDS: doxycycline 100 mg Tablet PO ×2 (08:20→17:37)
[2020-09-09] MEDS: propranolol 40 mg Tablet 20 MG PO ×2 (08:20→20:48)
[2020-09-09] MEDS: escitalopram 10 mg Tablet PO (08:20)
[2020-09-09] MEDS: gabapentin 100 mg Capsule PO ×2 (08:20→17:38)
[2020-09-09] MEDS: lisinopril 5 mg Tablet PO (08:21)
[2020-09-09] MEDS: montelukast sodium 10 mg Tablet PO (08:21)
[2020-09-09] MEDS: enoxaparin 40 mg/0.4 mL Syringe SUBCUT (08:24)
--- NOTE | 2020-09-09 12:28 | PM.PN ---
Subjective Subjective: Interval history: Patient was seen this morning, no fevers, no cough, no shortness of breath Vitals/I&O/Wt Last Vital Signs Temp 97.9 F 09/09/20 11:41 Pulse 74 09/09/20 11:41 Resp 16 09/09/20 11:41 BP 99/66 09/09/20 11:41 Pulse Ox 95 09/09/20 11:41 09/08/20 09/09/20 09/09/20 22:59 06:59 14:59 Intake Total 240 / 1200 480 / 480 Output Total 450 / 450 150 / 150 Balance -450 / 510 240 / 750 330 / 330 Physical Exam Const: COMMON NORMALS: no acute distress and patient oriented x3 Resp: COMMON NORMALS: normal respiratory effort, No retractions, No use of accessory muscles and clear to auscultation bilaterally AUSCULTATION: clear to auscultation bilaterally Cardio: COMMON NORMALS: regular rate, regular rhythm, S1 normal heart sound present and S2 normal heart sound present RATE: regular rate RHYTHM: regular rhythm HEART SOUNDS: S1 normal heart sound present and S2 normal heart sound present GI: COMMON NORMALS: Normal to inspection, nondistended, normoactive bowel sounds present, Soft to palpation and non-tender PALPATION: Yes Soft to palpation Extremity: NARRATIVE EXTREMITY EXAM: Right lower extremity in a boot, left lower extremity in external fixator Neuro: COMMON NORMALS: patient oriented x3 Psych: COMMON NORMALS: mental status grossly normal Data : 09/02/20 05:06 09/01/20 20:12 A&P Assessment and plan (1) Traumatic bilateral lower extremity fractures: Pain is well controlled Oxycodone 10/325 q4hrs prn Spaced out morphine to 1 mg every 12 hours as needed States that she gets partial relief in pain, although does not expect that the pain will go away entirely. Discussed with podiatry, appreciate consultation with regards to recent fractures, fixator in place on the left. IC and flutter valve up out of bed with PTOT Full code Lovenox for DVT prophylaxis Status: Acute (2) Unable to care for self: Appreciate discharge planning consultation. Arrangements for placement to custodial facility. Status: Acute (3) Generalized anxiety disorder with panic attacks: Status: Chronic (4) Chronic post-traumatic stress disorder: Status: Chronic (5) Major depressive disorder, recurrent, severe with psychotic symptoms: Status: Chronic (6) Medical marijuana use: Status: Chronic Additional A&P Information Smoking addiction: Nicotine replacement. 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
--- NOTE | 2020-09-09 13:14 | XR_ITS ---
WS: [id number] Exam: XR ankle LT min 3V* [id number] Date/Time of Exam: 09/09/2020 1:31 PM Reason For Exam: Talus fracture Comparison 08/26/2020. Again noted is a comminuted fracture through the medial aspect of the talus. External fixators are in place in the calcaneus and the forefoot. The ankle mortise appears to be intact. XR/XR ankle LT min 3V* [id number] IMPRESSION: 1. Fractured calcaneus unchanged in the position.
--- NOTE | 2020-09-09 13:14 | XR_ITS ---
WS: [id number] Exam: XR ankle RT min 3V* [id number] Date/Time of Exam: 09/09/2020 1:31 PM Reason For Exam: Talus fracture Comparison 08/26/2020. There is a fracture of the distal fibula remaining in satisfactory alignment without change. There is also a fracture involving the superior lateral corner of the talar dome. It is also unchanged in pos ition. No other fractures of the ankle are noted. XR/XR ankle RT min 3V* [id number] IMPRESSION: 1. Fractures of the talus and distal fibula unchanged in position since previou s exam.
[2020-09-10] VITALS (12 sets, daily range): BP systolic 102–132; BP diastolic 64–78; PULSE 64–81; RESP 14–20; TEMP 36.1–36.9; O2SAT 96–99
[2020-09-10] MEDS: oxyCODONE-APAP 10-325 mg Tablet 1 TAB PO ×5 (03:01→21:49)
[2020-09-10] MEDS: CLONazepam 1 mg Tablet PO ×2 (04:46→17:39)
--- NOTE | 2020-09-10 06:27 | PC.NURSE ---
SHIFT SUMMARY Has done well tonight with po prn Oxycodone for pain. External fixator to LLE and boot to RLE. Uses bedpan for voiding.
[2020-09-10] MEDS: escitalopram 10 mg Tablet PO (09:35)
[2020-09-10] MEDS: lisinopril 5 mg Tablet PO (09:35)
[2020-09-10] MEDS: enoxaparin 40 mg/0.4 mL Syringe SUBCUT (09:35)
[2020-09-10] MEDS: doxycycline 100 mg Tablet PO ×2 (09:35→17:38)
[2020-09-10] MEDS: gabapentin 100 mg Capsule PO ×2 (09:35→17:39)
[2020-09-10] MEDS: montelukast sodium 10 mg Tablet PO (09:35)
[2020-09-10] MEDS: cyclobenzaprine 10 mg Tablet PO ×2 (09:35→16:18)
[2020-09-10] MEDS: morphine 4 mg/mL SDV 1 mL 1 MG IVP ×2 (09:36→21:16)
[2020-09-10] MEDS: nicotine 21 mg Patch 1 PATCH TRANSDERMA (09:36)
[2020-09-10] MEDS: propranolol 40 mg Tablet 20 MG PO ×2 (09:36→16:17)
--- NOTE | 2020-09-10 12:51 | P.PN_ITS ---
Subjective Subjective: Interval history: Patient was seen this morning, she denies any fevers, no shortness of breath, she is working physical therapy, I advised patient that she should continue to use her incentive spirometer and flutter valve to decrease the risk of pneumonias, and atelectasis, in addition she does have a high risk of DVT, she is on DVT prophylaxis, but she does have a high r isk of DVT and PEs nonetheless, so she should do her best to continue to ambulate within reason given her bilateral ankle fractures, she voiced understanding, all questions answered, Vitals/I&O/Wt Last Vital Signs Temp 97.6 F 09/10/20 11:53 Pulse 64 09/10/20 11:53 Resp 16 09/10/20 11:53 BP 132/65 09/10/20 11:53 Pulse Ox 97 09/10/20 11:53 09/09/20 09/10/20 09/10/20 22:59 06:59 14:59 Intake Total 480 / 1200 560 / 1760 400 / 400 Output Total 900 / 1050 Balance 480 / 1050 -340 / 710 400 / 400 Physical Exam Const: COMMON NORMALS: no acute distress and patient oriented x3 Resp: COMMON NORMALS: normal respiratory effort, No retractions, No use of accessory muscles and clear to auscultation bilaterally AUSCULTATION: clear to auscultation bilaterally Cardio: COMMON NORMALS: regular rate, regular rhythm, S1 normal heart sound present and S2 normal heart sound present RATE: regular rate RHYTHM: regular rhythm HEART SOUNDS: S1 normal heart sound present and S2 normal heart sound present GI: COMMON NORMALS: Normal to inspection, nondistended, normoactive bowel sounds present, Soft to palpation and non-tender PALPATION: Yes Soft to palpation Extremity: NARRATIVE EXTREMITY EXAM: Right lower extremity in a boot, left lower extremity in external fixator Neuro: COMMON NORMALS: patient oriented x3 Psych: COMMON NORMALS: mental status grossly normal Data : 09/02/20 05:06 09/01/20 20:12 A&P Assessment and plan (1) Traumatic bilateral lower extremity fractures: Pain is well controlled Oxycodone 10/325 q4hrs prn Continue morphine 1 mg every 12 hours for breakthrough pain States that she gets partial relief in pain, although does not expect that the pain will go away entirely. Discussed with podiatry, appreciate consultation with regards to recent fractures, fixator in place on the left. IC and flutter valve up out of bed with PTOT Full code Lovenox for DVT prophylaxis Awaiting placement to senior care Status: Acute (2) Unable to care for self: Appreciate discharge planning consultation. Arrangements for placement to [facility] facility. Status: Acute (3) Generalized anxiety disorder with panic attacks: Status: Chronic (4) Chronic post-traumatic stress disorder: Status: Chronic (5) Major depressive disorder, recurrent, severe with psychotic symptoms: Status: Chronic (6) Medical marijuana use: Status: Chronic Additional A&P Information Smoking addiction: Nicotine replacement. 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
[2020-09-10] MEDS: acetaminophen 325 mg Tablet 650 MG PO (16:17)
[2020-09-10] MEDS: nicotine 2 mg Gum BUCCAL (19:31)
[2020-09-11] VITALS (14 sets, daily range): BP systolic 93–111; BP diastolic 63–75; PULSE 75–100; RESP 14–19; TEMP 36.4–36.7; O2SAT 95–98
[2020-09-11] MEDS: oxyCODONE-APAP 10-325 mg Tablet 1 TAB PO ×5 (02:21→21:57)
[2020-09-11] MEDS: nicotine 2 mg Gum BUCCAL ×2 (06:02→20:06)
[2020-09-11] MEDS: cyclobenzaprine 10 mg Tablet PO ×2 (10:55→16:54)
[2020-09-11] MEDS: montelukast sodium 10 mg Tablet PO (10:55)
[2020-09-11] MEDS: escitalopram 10 mg Tablet PO (10:55)
[2020-09-11] MEDS: gabapentin 100 mg Capsule PO ×2 (10:55→16:55)
[2020-09-11] MEDS: lisinopril 5 mg Tablet PO (10:55)
[2020-09-11] MEDS: doxycycline 100 mg Tablet PO ×2 (10:55→16:55)
[2020-09-11] MEDS: enoxaparin 40 mg/0.4 mL Syringe SUBCUT (10:56)
[2020-09-11] MEDS: nicotine 21 mg Patch 1 PATCH TRANSDERMA (10:56)
[2020-09-11] MEDS: CLONazepam 1 mg Tablet PO (10:56)
[2020-09-11] MEDS: morphine 4 mg/mL SDV 1 mL 1 MG IVP ×2 (10:57→23:52)
--- NOTE | 2020-09-11 14:22 | P.PN_ITS ---
Subjective Subjective: Interval history: States she is doing all right. Has been using incentive spirometer. Vitals/I&O/Wt Last Vital Signs Temp 97.6 F 09/11/20 12:00 Pulse 84 09/11/20 12:00 Resp 14 09/11/20 13:37 BP 111/75 09/11/20 12:00 Pulse Ox 95 09/11/20 13:37 09/10/20 09/11/20 09/11/20 22:59 06:59 14:59 Intake Total 620 / 1520 240 / 1760 360 / 360 Output Total 800 / 800 Balance 620 / 1020 240 / 1260 -440 / -440 Physical Exam Const: COMMON NORMALS: no acute distress and patient oriented x3 NUTRITIONAL APPEARANCE: obese HENMT: COMMON NORMALS: oropharynx normal Neck/C-Spine: COMMON NORMALS: no JVD Resp: COMMON NORMALS: normal respiratory effort and clear to auscultation bilaterally AUSCULTATION: clear to auscultation bilaterally Cardio: COMMON NORMALS: no JVD, regular rhythm, S1 normal heart sound present, S2 normal heart sound present and No murmurs present (Cardio) RHYTHM: regular rhythm HEART SOUNDS: S1 normal heart sound present and S2 normal heart sound present GI: COMMON NORMALS: Normal to inspection, nondistended, normoactive bowel soun ds present, Soft to palpation and non-tender PALPATION: Yes Soft to palpation Extremity: COMMON NORMALS: no joint enlargement and no pedal edema OTHER: Boot on the right. Gauze dressing on the L without bleeding or strikethrough. Neuro: COMMON NORMALS: patient oriented x3 and moves all extremities Skin: COMMON NORMALS: no rashes or lesions noted GENERAL SKIN EXAM: no rashes or lesions noted Data : 09/02/20 05:06 09/01/20 20:12 A&P Assessment and plan (1) Traumatic bilateral lower extremity fractures: Pain is well controlled. Weaning of morphine. Oxycodone 10/325 q4hrs prn IS and flutter valve up out of bed with PTOT Awaiting placement to [facility]. Discussed with DC planning. Status: Acute (2) Unable to care for self: Appreciate discharge planning consultation. Arrangements for placement to senior living facility. Status: Acute (3) Generalized anxiety disorder with panic attacks: Status: Chronic (4) Chronic post-traumatic stress disorder: Status: Chronic (5) Major depressive disorder, recurrent, severe with psychotic symptoms: Status: Chronic (6) Medical marijuana use: Status: Chronic Additional A&P Information Smoking addiction: Nicotine replacement. Attestations Medical Necessity Statement*: Continue weaning of morphine, optimization of pain control. Disposition arrangements. 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 Fwd Diagnoses Traumatic bilateral lower extremity fractures S82.91XA; S82.92XA Unable to care for self Z78.9 Generalized anxiety disorder with panic attacks F41.1; F41.0 Chronic post-traumatic stress disorder F43.12 Major depressive disorder, recurrent, severe with psychotic symptoms F33.3 Medical marijuana use Z79.899
[2020-09-11] MEDS: acetaminophen 325 mg Tablet 650 MG PO (16:54)
[2020-09-11] MEDS: propranolol 40 mg Tablet 20 MG PO (16:55)
[2020-09-12] VITALS (9 sets, daily range): BP systolic 98–120; BP diastolic 56–83; PULSE 70–94; RESP 14–18; TEMP 36.4–36.9; O2SAT 95–98
[2020-09-12] MEDS: oxyCODONE-APAP 10-325 mg Tablet 1 TAB PO ×4 (02:06→16:38)
[2020-09-12] MEDS: nicotine 2 mg Gum BUCCAL ×3 (07:00→16:38)
[2020-09-12 07:49] LABS: Basophils % 0.3 %; Eosinophils # 0.1 10^3/uL (0.0-0.8); Eosinophils % 1.5 %; Hematocrit 34.4 % (37.0-47.0); Hemoglobin 11.1 g/dL (11.5-15.3); Lymphocytes # 2.2 10^3/uL (0.8-4.8); Mean Corpuscular HGB Conc 32.3 g/dL (30.0-36.0); Mean Corpuscular Hemoglobin 33.8 pg (28.0-34.0); Mean Corpuscular Volume 104.9 fL (81-99); Mean Platelet Volume 10.8 fL (7.4-10.4); Monocytes # 0.7 10^3/uL (0.2-0.9); Monocytes % 10.4 %; Neutrophils # 3.59 10^3/uL (1.8-7.7); Neutrophils % 54.6 %; Nucleated Red Blood Cells % 0 %; Platelet Count 255 10^3/cmm (130-400); Red Blood Count 3.28 10^6/uL (4.1-5.3); Red Cell Distribution Width 12.8 % (12.1-15.1); White Blood Count 6.6 10^3/uL (4.0-10.0)
[2020-09-12 08:00] LABS: Alanine Aminotransferase 37 U/L (0-33); Albumin Level 3.4 g/dL (3.5-5.2); Alkaline Phosphatase 77 IU/L (35-105); Anion Gap 10.5 (5-19); Aspartate Amino Transferase 27 U/L (0-32); Blood Urea Nitrogen 11 mg/dL (6-20); Calcium 8.8 mg/dL (8.5-10.5); Carbon Dioxide 31 mmol/L (22-29); Chloride 101 mmol/L (98-107); Globulin 2.2 g/dL (1.3-4.6); Glomerular Filtration Rate 115.9 mL/min (90-130); Glucose 109 mg/dL (65-115); Osmolality Calculated 286 mOsm/kg (285-295); Potassium 4.5 mmol/L (3.5-5.1); Sodium 138 mmol/L (136-145); Total Bilirubin 0.3 mg/dL (0.15-1.2); Total Protein 5.6 g/dL (6.6-8.7)
[2020-09-12] MEDS: gabapentin 100 mg Capsule PO ×2 (09:19→18:28)
[2020-09-12] MEDS: escitalopram 10 mg Tablet PO (09:19)
[2020-09-12] MEDS: CLONazepam 1 mg Tablet PO (09:19)
[2020-09-12] MEDS: enoxaparin 40 mg/0.4 mL Syringe SUBCUT (09:19)
[2020-09-12] MEDS: cyclobenzaprine 10 mg Tablet PO ×3 (09:19→20:24)
[2020-09-12] MEDS: lisinopril 5 mg Tablet PO (09:19)
[2020-09-12] MEDS: montelukast sodium 10 mg Tablet PO (09:19)
[2020-09-12] MEDS: doxycycline 100 mg Tablet PO ×2 (09:19→18:28)
[2020-09-12] MEDS: acetaminophen 325 mg Tablet 650 MG PO (09:20)
[2020-09-12] MEDS: propranolol 40 mg Tablet 20 MG PO ×2 (09:20→14:54)
[2020-09-12] MEDS: nicotine 21 mg Patch 1 PATCH TRANSDERMA (09:20)
--- NOTE | 2020-09-12 09:49 | PC.NURSE ---
PT REQUESTED FOR IV TO BE REMOVED. THIS NURSE FLUSHED IV AND IV WAS LEAKING SO THIS NURSE DID REMOVED IV DUE TO THE LEAKING AND PAIN TO PT WITH THE FLUSH. PT THEN REQUESTED FOR IT TO JUST BE LEFT OUT. THIS NURSE ASKED THE PHYSICIAN. PHYSICIAN WAS OK WITH THAT, SO NO IV WILL BE STARTED IN PT AT THIS TIME.
--- NOTE | 2020-09-12 19:47 | PC.NURSE ---
Addendum entered by Leticia Castanon RN 09/12/20 20:49: bilateral knee abrasions - healing Original Note: PM NOTE PT NOTED TO HAVE RIGHT WALKING BOOT IN PLACE - LEFT FOOT WITH EXTERNAL FIXATOR NOTED TO BE C/D/I WITH NO DRAINAGE NOTED - 1+ EDEMA NOTED TO LEFT FOOT
--- NOTE | 2020-09-12 21:27 | P.PN_ITS ---
Subjective Subjective: Interval history: Reports she is doing all right. Trying to take a nap during my visit. We have stopped morphine, she requested to remove her IV access. Vitals/I&O/Wt Last Vital Signs Temp 98.4 F 09/12/20 20:00 Pulse 94 09/12/20 20:00 Resp 17 09/12/20 20:00 BP 120/83 09/12/20 20:00 Pulse Ox 98 09/12/20 20:00 09/12/20 09/12/20 09/12/20 06:59 14:59 22:59 Intake Total 480 / 480 240 / 720 Output Total 300 / 1950 200 / 200 Balance -300 / -1350 280 / 280 240 / 520 Physical Exam Const: COMMON NORMALS: no acute distress and patient oriented x3 NUTRITIONAL APPEARANCE: obese HENMT: COMMON NORMALS: oropharynx normal Neck/C-Spine: COMMON NORMALS: no JVD Resp: COMMON NORMALS: normal respiratory effort and clear to auscultation mando aterally AUSCULTATION: clear to auscultation bilaterally Cardio: COMMON NORMALS: no JVD, regular rhythm, S1 normal heart sound present, S2 normal heart sound present and No murmurs present (Cardio) RHYTHM: regular rhythm HEART SOUNDS: S1 normal heart sound present and S2 normal heart sound present GI: COMMON NORMALS: Normal to inspection, nondistended, normoactive bowel sounds present, Soft to palpation and non-tender PALPATION: Yes Soft to palpation Extremity: COMMON NORMALS: no joint enlargement and no pedal edema OTHER: Boot on the right. Fixator, gauze dressing on the L without bleeding or strikethrough. Neuro: COMMON NORMALS: patient oriented x3 and moves all extremities Skin: COMMON NORMALS: no rashes or lesions noted GENERAL SKIN EXAM: no rashes or lesions noted Data : 09/12/20 07:25 09/12/20 07:25 A&P Assessment and plan (1) Traumatic bilateral lower extremity fractures: DC morphine, DC IV. Oxycodone 10/325 q4hrs prn IS and flutter valve up out of bed with PTOT Discharge planning continuing arrangements with regards to placement. Status: Acute (2) Unable to care for self: Appreciate discharge planning consultation. Arrangements for placement to [facility] facility. Status: Acute (3) Generalized anxiety disorder with panic attacks: Status: Chronic (4) Chronic post-traumatic stress disorder: Status: Chronic (5) Major depressive disorder, recurrent, severe with psychotic symptoms: Status: Chronic (6) Medical marijuana use: Status: Chronic Additional A&P Information Smoking addiction: Nicotine replacement. Attestations Medical Necessity Statement*: Continue optimization of pain control regimen, disposition arrangements with inability to bear weight on either lower extremity, lack of social support. 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
[2020-09-13] VITALS (10 sets, daily range): BP systolic 127–141; BP diastolic 80–90; PULSE 85–112; RESP 16–18; TEMP 36.7–37; O2SAT 97–100
[2020-09-13] MEDS: oxyCODONE-APAP 10-325 mg Tablet 1 TAB PO ×4 (00:13→21:59)
[2020-09-13] MEDS: propranolol 40 mg Tablet 20 MG PO ×4 (00:16→21:46)
--- NOTE | 2020-09-13 00:17 | PC.NURSE ---
PROPANALOL PT REFUSED PROPANALOL AT BEDTIME - NOW REQUESTS PROPANLOL BE GIVEN -
[2020-09-13] MEDS: CLONazepam 1 mg Tablet PO ×2 (00:47→12:17)
--- NOTE | 2020-09-13 04:05 | PC.NURSE ---
SHIFT SUMMARY PT HAS RAMBLED THROUGHOUT THE NIGHT - STATING SHE HAS BEEN OFF HER ADHD/BIPOLAR MEDS AND THIS IS THE RESULT - PT HAS VOIDED ON BED PAIN THROUGHOUT THE NIGHT AND TOLERATED WELL - REQUIRED MULTIPLE REMINDERS TO KEEP LEFT LEG/EXTERNAL FIXATOR UP ON PILLOWS - VERBALIZES UNDERSTANDING - RIGHT BOOT HAS REMAINED IN PLACE - WILL CONTINUE TO MONITOR
--- NOTE | 2020-09-13 06:13 | PC.NURSE ---
REFUSAL LAB IN ROOM TO DRAW - PT REFUSES LAB DRAW - TEARFUL - STATES I DO NOT HAVE ANY VEINS
[2020-09-13] MEDS: doxycycline 100 mg Tablet PO ×2 (08:14→17:52)
[2020-09-13] MEDS: BREXPIPRAZOLE 3 MG 3 EACH PO (08:14)
[2020-09-13] MEDS: docusate sodium 100 mg Capsule PO (08:14)
[2020-09-13] MEDS: lisinopril 5 mg Tablet PO (08:14)
[2020-09-13] MEDS: gabapentin 100 mg Capsule PO ×2 (08:14→17:52)
[2020-09-13] MEDS: montelukast sodium 10 mg Tablet PO (08:14)
[2020-09-13] MEDS: escitalopram 10 mg Tablet PO (08:14)
[2020-09-13] MEDS: enoxaparin 40 mg/0.4 mL Syringe SUBCUT (08:14)
[2020-09-13] MEDS: neomycin-poly-bacitracin oint 28 gm 1 APPLIC TOPICAL ×2 (10:28→18:02)
[2020-09-13] MEDS: nicotine 21 mg Patch 1 PATCH TRANSDERMA (12:17)
[2020-09-13] MEDS: nicotine 2 mg Gum BUCCAL ×2 (12:17→21:46)
--- NOTE | 2020-09-13 13:49 | P.PN_ITS ---
Subjective Subjective: Interval history: Today she is feeling anxious and upset with regards to her disposition, inability to manage things on her own, and difficulties with obtaining placement. Uncertain future. She states has been working with her mother who has worked with her and to try to help with finding placement. Vitals/I&O/Wt Last Vital Signs Temp 98.3 F 09/13/20 11:44 Pulse 102 H 09/13/20 11:44 Resp 17 09/13/20 11:44 BP 127/80 09/13/20 11:44 Pulse Ox 98 09/13/20 11:44 09/12/20 09/13/20 09/13/20 22:59 06:59 14:59 Intake Total 360 / 840 240 / 1080 Balance 360 / 640 240 / 880 Physical Exam Const: COMMON NORMALS: no acute distress and patient oriented x3 NUTRITIONAL APPEARANCE: obese HENMT: COMMON NORMALS: oropharynx normal Neck/C-Spine: COMMON NORMALS: no JVD Resp: COMMON NORMALS: normal respiratory effort and clear to auscultation b ilaterally AUSCULTATION: clear to auscultation bilaterally Cardio: COMMON NORMALS: no JVD, regular rhythm, S1 normal heart sound present, S2 normal heart sound present and No murmurs present (Cardio) RHYTHM: regular rhythm HEART SOUNDS: S1 normal heart sound present and S2 normal heart sound present GI: COMMON NORMALS: Normal to inspection, nondistended, normoactive bowel sounds present, Soft to palpation and non-tender PALPATION: Yes Soft to palpation Extremity: COMMON NORMALS: no joint enlargement and no pedal edema OTHER: Boot on the right. Fixator, gauze dressing on the L without bleeding or strikethrough. Neuro: COMMON NORMALS: patient oriented x3 and moves all extremities Skin: COMMON NORMALS: no rashes or lesions noted GENERAL SKIN EXAM: no rashes or lesions noted Data : 09/12/20 07:25 09/12/20 07:25 A&P Assessment and plan (1) Traumatic bilateral lower extremity fractures: Requiring minimum 6 weeks nonweightbearing to right lower extremity, minimum 8 weeks to left lower extremity. Discharge planning continue to work on disposition as she cannot manage things at home and lacking social support. Dressing changes continue twice weekly by podiatry. Continue Lovenox until weightbearing. Oxycodone 10/325 q4hrs prn IS and flutter valve Status: Acute (2) Unable to care for self: Appreciate discharge planning consultation. Arrangements for placement to residential facility. Status: Acute (3) Generalized anxiety disorder with panic attacks: Status: Chronic (4) Chronic post-traumatic stress disorder: Status: Chronic (5) Major depressive disorder, recurrent, severe with psychotic symptoms: Status: Chronic (6) Medical marijuana use: Status: Chronic Additional A&P Information Smoking addiction: Nicotine replacement. Attestations Medical Necessity Statement*: Continue optimization of pain control, dressing changes, prophylactic anticoagulation, attempted mobilization with nonweightbearing on either lower extremity and disposition planning and arrangements due to inability to maintain independence and current state and lacking social support. 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
--- NOTE | 2020-09-13 15:56 | PC.OT ---
OT tx attempted 2x today. Pt reports she is having a hard day and having difficulty dealing with everything . Pt very talkative and therapist spending total of at least 30 minutes listening to pt express her feelings and why she is unable to participate in therapy today. Pt is sitting up at edge of bed and displays no complaints of pain. Therapist providing pt with encouragement and pt plans to participate in tx activities tomorrow.
[2020-09-14] VITALS (9 sets, daily range): BP systolic 98–134; BP diastolic 61–85; PULSE 81–106; RESP 14–18; TEMP 36.4–37.1; O2SAT 98–100
[2020-09-14] MEDS: oxyCODONE-APAP 10-325 mg Tablet 1 TAB PO ×4 (03:34→21:20)
[2020-09-14] MEDS: CLONazepam 1 mg Tablet PO (03:38)
[2020-09-14] MEDS: nicotine 2 mg Gum BUCCAL ×3 (03:38→21:20)
[2020-09-14] MEDS: cyclobenzaprine 10 mg Tablet PO ×2 (03:42→11:08)
[2020-09-14] MEDS: acetaminophen 325 mg Tablet 650 MG PO (05:34)
--- NOTE | 2020-09-14 11:02 | P.PN_ITS ---
Subjective Subjective: Interval history: Pain in her ankles, asking for more pain medication between oxycodone doses. Vitals/I&O/Wt Last Vital Signs Temp 98.1 F 09/14/20 07:41 Pulse 95 09/14/20 07:41 Resp 18 09/14/20 07:41 BP 134/85 09/14/20 07:41 Pulse Ox 100 09/14/20 07:41 09/13/20 09/14/20 09/14/20 22:59 06:59 14:59 Intake Total 480 / 780 240 / 240 Balance 480 / 780 240 / 240 Physical Exam Const: COMMON NORMALS: no acute distress and patient oriented x3 NUTRITIONAL APPEARANCE: obese HENMT: COMMON NORMALS: oropharynx normal Neck/C-Spine: COMMON NORMALS: no JVD Resp: COMMON NORMALS: normal respiratory effort and clear to auscultation bilaterally AUSCULTATION: clear to auscultation bilaterally Cardio: COMMON NORMALS: no JVD, regular rhythm, S1 normal heart sound present, S2 normal heart sound present and No murmurs present (Cardio) RHYTHM: regular rhythm HEART SOUNDS: S1 normal heart sound present and S2 normal heart sound present GI: COMMON NORMALS: Normal to inspection, nondistended, normoactive bowel sounds present, Soft to palpation and non-tender PALPATION: Yes Soft to palpation Extremity: COMMON NORMALS: no joint enlargement and no pedal edema OTHER: Boot on the right. Fixator, gauze dressing on the L without bleeding or strikethrough. Neuro: COMMON NORMALS: patient oriented x3 and moves all extremities Skin: COMMON NORMALS: no rashes or lesions noted GENERAL SKIN EXAM: no rashes or lesions noted Data : 09/12/20 07:25 09/12/20 07:25 A&P Assessment and plan (1) Traumatic bilateral lower extremity fractures: Requesting for additional pain medication in between doses of oxycodone. Discussed with her she has acetaminophen for which she may request. We will add ibuprofen as needed as well in case she needs it. She states that since there have been difficulties with trying to obtain placement she states she likes staying in the hospital here, and feels that this would be a good place for her to stay. Discussed with her risks of prolonged hospitalization, including risks of hospital-acquired infections. Continue times to secure placement. Requiring minimum 6 weeks nonweightbearing to right lower extremity, minimum 8 weeks to left lower extremity. Discharge planning continue to work on disposition as she cannot manage things at home and lacking social support. Dressing changes continue twice weekly by podiatry. Continue Lovenox until weightbearing. Oxycodone 10/325 q4hrs prn IS and flutter valve Status: Acute (2) Unable to care for self: Appreciate discharge planning consultation. Arrangements for placement to nursing home facility. Status: Acute (3) Generalized anxiety disorder with panic attacks: Status: Chronic (4) Chronic post-traumatic stress disorder: Status: Chronic (5) Major depressive disorder, recurrent, severe with psychotic symptoms: Status: Chronic (6) Medical marijuana use: Status: Chronic Additional A&P Information Smoking addiction: Nicotine replacement. Attestations Medical Necessity Statement*: Continue management following bilateral ankle fractures, nonweightbearing on lower extremities, arrangements for placement, as currently unable to care for self independently. 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
[2020-09-14] MEDS: nicotine 21 mg Patch 1 PATCH TRANSDERMA (11:07)
[2020-09-14] MEDS: escitalopram 10 mg Tablet PO (11:07)
[2020-09-14] MEDS: montelukast sodium 10 mg Tablet PO (11:08)
[2020-09-14] MEDS: enoxaparin 40 mg/0.4 mL Syringe SUBCUT (11:09)
[2020-09-14] MEDS: doxycycline 100 mg Tablet PO ×2 (11:09→15:53)
[2020-09-14] MEDS: gabapentin 100 mg Capsule PO ×2 (11:09→15:52)
[2020-09-14] MEDS: BREXPIPRAZOLE 3 MG 3 EACH PO (11:10)
[2020-09-14] MEDS: neomycin-poly-bacitracin oint 28 gm 1 APPLIC TOPICAL ×2 (11:11→15:56)
--- NOTE | 2020-09-14 12:02 | PC.OT ---
OT tx attempted. Pt lying in bed and reports I just had all my meds and I'm really sleepy . Pt requests therapist to return later to attempt therapy.
--- NOTE | 2020-09-14 14:11 | PC.OT ---
OT tx attempted for second time today. Pt sitting up in bed. She reports I have an ear ache and I feel woozy . Pt declines OT services at this time. Will attempt tx again tomorrow.
[2020-09-14] MEDS: ibuprofen 200 mg Tablet 400 MG PO (15:21)
[2020-09-14] MEDS: propranolol 40 mg Tablet 20 MG PO ×2 (15:21→21:20)
[2020-09-15] VITALS (10 sets, daily range): BP systolic 105–136; BP diastolic 64–75; PULSE 65–89; RESP 16–18; TEMP 36.4–37.1; O2SAT 94–98
[2020-09-15] MEDS: CLONazepam 1 mg Tablet PO ×2 (04:06→23:58)
[2020-09-15] MEDS: oxyCODONE-APAP 10-325 mg Tablet 1 TAB PO ×5 (04:06→23:58)
[2020-09-15] MEDS: cyclobenzaprine 10 mg Tablet PO (08:31)
[2020-09-15] MEDS: montelukast sodium 10 mg Tablet PO (08:32)
[2020-09-15] MEDS: doxycycline 100 mg Tablet PO ×2 (08:32→17:07)
[2020-09-15] MEDS: docusate sodium 100 mg Capsule PO (08:32)
[2020-09-15] MEDS: escitalopram 10 mg Tablet PO (08:33)
[2020-09-15] MEDS: lisinopril 5 mg Tablet PO (08:33)
[2020-09-15] MEDS: gabapentin 100 mg Capsule PO ×2 (08:33→17:07)
[2020-09-15] MEDS: enoxaparin 40 mg/0.4 mL Syringe SUBCUT (08:34)
[2020-09-15] MEDS: BREXPIPRAZOLE 3 MG 3 EACH PO (10:22)
[2020-09-15] MEDS: nicotine 2 mg Gum BUCCAL (11:06)
[2020-09-15] MEDS: nicotine 21 mg Patch 1 PATCH TRANSDERMA (11:06)
[2020-09-15] MEDS: ibuprofen 200 mg Tablet 400 MG PO (14:51)
[2020-09-15] MEDS: propranolol 40 mg Tablet 20 MG PO ×2 (14:52→23:57)
--- NOTE | 2020-09-15 19:07 | PM.PN ---
Subjective Subjective: Interval history: No ear pain today. After encouragement earlier today to work with psychotherapy states that she did work, and they transferred together to the wheelchair, to the commode and back. Vitals/I&O/Wt Last Vital Signs Temp 98.4 F 09/15/20 16:00 Pulse 65 09/15/20 16:00 Resp 16 09/15/20 17:07 BP 109/64 09/15/20 16:00 Pulse Ox 97 09/15/20 16:00 09/15/20 09/15/20 09/15/20 06:59 14:59 22:59 Intake Total 250 / 1850 700 / 700 360 / 1060 Balance 250 / 1850 700 / 700 360 / 1060 Physical Exam Const: COMMON NORMALS: no acute distress and patient oriented x3 NUTRITIONAL APPEARANCE: obese HENMT: COMMON NORMALS: oropharynx normal Neck/C-Spine: COMMON NORMALS: no JVD Resp: COMMON NORMALS: normal respiratory effort and clear to auscultation bilaterally AUSCULTATION: clear to auscultation bilaterally Cardio: COMMON NORMALS: no JVD, regular rhythm, S1 normal heart sound present, S2 normal heart sound present and No murmurs present (Cardio) RHYTHM: regular rhythm HEART SOUNDS: S1 normal heart sound present and S2 normal heart sound present GI: COMMON NORMALS: Normal to inspection, nondistended, normoactive bowel sounds present, Soft to palpation and non-tender PALPATION: Yes Soft to palpation Extremity: COMMON NORMALS: no joint enlargement and no pedal edema OTHER: Boot on the right. Fixator, gauze dressing on the L without bleeding or strikethrough. Neuro: COMMON NORMALS: patient oriented x3 and moves all extremities Skin: COMMON NORMALS: no rashes or lesions noted GENERAL SKIN EXAM: no rashes or lesions noted Data : 09/12/20 07:25 09/12/20 07:25 A&P Assessment and plan (1) Traumatic bilateral lower extremity fractures: Encouraged her to work with physical therapy, as even though she cannot bear weight, cautioned her against allowing for severe muscular deconditioning in the areas she can work on. She verbalized understanding and agreement. Continue to position of pain medication. It appears that there is somewhat of a disconnect between her wanting pain medication whenever she is awake, however, noted getting an episode of getting too sleepy last night, but on other occasions if not receiving medication then voices concern that she is not getting her medications when she asks for them, even though nursing staff notes she is sleepy at the time. Discussed with nursing staff. Continue safe approach, if she is sleepy or sleeping at that time after requested for pain medication to avoid dose until she is alert and actively in pain. Appreciate case management continued efforts to secure safe placement. Requiring minimum 6 weeks nonweightbearing to right lower extremity, minimum 8 weeks to left lower extremity. Discharge planning continue to work on disposition as she cannot manage things at home and lacking social support. Dressing changes continue twice weekly by podiatry. Continue Lovenox until weightbearing. Oxycodone 10/325 q4hrs prn IS and flutter valve Status: Acute (2) Unable to care for self: Appreciate discharge planning consultation. Arrangements for placement to retirement facility. Status: Acute (3) Generalized anxiety disorder with panic attacks: Status: Chronic (4) Chronic post-traumatic stress disorder: Status: Chronic (5) Major depressive disorder, recurrent, severe with psychotic symptoms: Status: Chronic (6) Medical marijuana use: Status: Chronic Additional A&P Information Smoking addiction: Nicotine replacement. Ear pain/left side neck pain: Reported on 09/14, on examination of her ears, EAM's, and her ear without erythema, fluid, bleeding, no sign of perforation of TM. Some opacification, possibly secondary to prior infection she reports. No evidence of current infection. Nursing staff reported pain worse with chewing, she reports especially with chewing nicotine gum . 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 Encouraged to avoid gum or repeat chewing on the same side. Requested to switch nicotine supplement to lozenge. She reports today no pain or discomfort. Attestations Medical Necessity Statement*: Continue hospitalization for optimization of pain control secondary to bilateral ankle fractures, mobilization while unable to bear weight on either lower extremity, disposition arrangements due to being unable to care for self at home and lack of social support. 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
[2020-09-16] VITALS (10 sets, daily range): BP systolic 100–137; BP diastolic 54–78; PULSE 76–84; RESP 16–20; TEMP 36.3–36.8; O2SAT 95–99
[2020-09-16] MEDS: acetaminophen 325 mg Tablet 650 MG PO (04:43)
[2020-09-16] MEDS: cyclobenzaprine 10 mg Tablet PO ×3 (04:44→21:55)
[2020-09-16] MEDS: escitalopram 10 mg Tablet PO (07:59)
[2020-09-16] MEDS: doxycycline 100 mg Tablet PO ×2 (07:59→17:34)
[2020-09-16] MEDS: oxyCODONE-APAP 10-325 mg Tablet 1 TAB PO ×4 (07:59→21:54)
[2020-09-16] MEDS: CLONazepam 1 mg Tablet PO ×2 (07:59→17:34)
[2020-09-16] MEDS: gabapentin 100 mg Capsule PO ×2 (07:59→17:34)
[2020-09-16] MEDS: montelukast sodium 10 mg Tablet PO (08:00)
[2020-09-16] MEDS: lisinopril 5 mg Tablet PO (08:00)
[2020-09-16] MEDS: enoxaparin 40 mg/0.4 mL Syringe SUBCUT (08:00)
[2020-09-16] MEDS: docusate sodium 100 mg Capsule PO (08:00)
[2020-09-16] MEDS: propranolol 40 mg Tablet 20 MG PO ×3 (08:01→21:55)
[2020-09-16] MEDS: nicotine 4 mg lozenge PO ×2 (08:53→16:20)
[2020-09-16] MEDS: nicotine 21 mg Patch 1 PATCH TRANSDERMA (12:43)
--- NOTE | 2020-09-16 13:33 | P.PN_ITS ---
Subjective Subjective: Interval history: No recurrence of jaw/ear pain. Transfer to wheelchair and back with help of physical therapy. Intends to continue working with them. Vitals/I&O/Wt Last Vital Signs Temp 97.9 F 09/16/20 11:02 Pulse 81 09/16/20 11:02 Resp 16 09/16/20 12:41 BP 101/63 09/16/20 11:02 Pulse Ox 95 09/16/20 12:41 09/15/20 09/16/20 09/16/20 22:59 06:59 14:59 Intake Total 480 / 1180 120 / 1300 710 / 710 Output Total 0 / 0 200 / 200 Balance 480 / 1180 -80 / 1100 710 / 710 Physical Exam Const: COMMON NORMALS: no acute distress and patient oriented x3 NUTRITIONAL APPEARANCE: obese HENMT: COMMON NORMALS: oropharynx normal Neck/C-Spine: COMMON NORMALS: no JVD Resp: COMMON NORMALS: normal respiratory effort and clear to auscultation bilaterally AUSCULTATION: clear to auscultation bilaterally Cardio: COMMON NORMALS: no JVD, regular rhythm, S1 normal heart sound present, S2 normal heart sound present and No murmurs present (Cardio) RHYTHM: regular rhythm HEART SOUNDS: S1 normal heart sound present and S2 normal heart sound present GI: COMMON NORMALS: Normal to inspection, nondistended, normoactive bowel sounds present, Soft to palpation and non-tender PALPATION: Yes Soft to palpation Extremity: COMMON NORMALS: no joint enlargement and no pedal edema OTHER: Boot on the right. Fixator, clean gauze dressing on the L without bleeding or strikethrough. Neuro: COMMON NORMALS: patient oriented x3 and moves all extremities Skin: COMMON NORMALS: no rashes or lesions noted GENERAL SKIN EXAM: no rashes or lesions noted Data : 09/12/20 07:25 09/12/20 07:25 A&P Assessment and plan (1) Traumatic bilateral lower extremity fractures: She is now working well with PT. with her help transferring to wheelchair and back. Intends to continue working. Encouraged to continue efforts at mobilization without weightbearing on lower extremities. Appreciate case management continued efforts to secure safe placement. Requiring minimum 6 weeks nonweightbearing to right lower extremity, minimum 8 weeks to left lower extremity. Discharge planning continue to work on disposition as she cannot manage things at home and lacking social support. Dressing changes continue twice weekly by podiatry. Continue Lovenox until weightbearing. Oxycodone 10/325 q4hrs prn IS and flutter valve Status: Acute (2) Unable to care for self: Appreciate discharge planning consultation. Arrangements for placement to snf facility. Status: Acute (3) Generalized anxiety disorder with panic attacks: Status: Chronic (4) Chronic post-traumatic stress disorder: Status: Chronic (5) Major depressive disorder, recurrent, severe with psychotic symptoms: Status: Chronic (6) Medical marijuana use: Status: Chronic Additional A&P Information Smoking addiction: Nicotine replacement. Ear pain/left side neck pain: Secondary to left TMJ disorder. Resolved with cessation of nicotine gum. Continue lozenges as needed. Attestations Medical Necessity Statement*: Continue admission for optimization of pain control for bilateral ankle fractures, mobilization with inability to bear weight on either lower extremity, disposition planning and arrangements. Coding Level of Care Code Acute Fans Clerk for [facility] Diagnoses Traumatic bilateral lower extremity fractures S82.91XA; S82.92XA Unable to care for self Z78.9 Generalized anxiety disorder with panic attacks F41.1; F41.0 Chronic post-traumatic stress disorder F43.12 Major depressive disorder, recurrent, severe with psychotic symptoms F33.3 Medical marijuana use Z79.899
--- NOTE | 2020-09-16 19:29 | PC.NURSE ---
Report to Shy JADE at bedside at this time.
[2020-09-17] VITALS (10 sets, daily range): BP systolic 95–138; BP diastolic 59–84; PULSE 71–90; RESP 14–20; TEMP 36.3–37.1; O2SAT 96–99
[2020-09-17] MEDS: oxyCODONE-APAP 10-325 mg Tablet 1 TAB PO ×5 (01:41→21:11)
--- NOTE | 2020-09-17 07:30 | PC.NURSE ---
Blood pressure was low, alerted nurse, left arm was 80/47
[2020-09-17] MEDS: gabapentin 100 mg Capsule PO ×2 (08:23→17:26)
[2020-09-17] MEDS: doxycycline 100 mg Tablet PO ×2 (08:24→17:26)
[2020-09-17] MEDS: CLONazepam 1 mg Tablet PO ×2 (08:24→21:11)
[2020-09-17] MEDS: montelukast sodium 10 mg Tablet PO (08:24)
[2020-09-17] MEDS: enoxaparin 40 mg/0.4 mL Syringe SUBCUT (08:24)
[2020-09-17] MEDS: escitalopram 10 mg Tablet PO (08:24)
[2020-09-17] MEDS: BREXPIPRAZOLE 3 MG 3 EACH PO (08:32)
[2020-09-17] MEDS: nicotine 4 mg lozenge PO ×2 (08:32→15:32)
[2020-09-17] MEDS: nicotine 21 mg Patch 1 PATCH TRANSDERMA (12:17)
--- NOTE | 2020-09-17 16:30 | PC.NURSE ---
Went to round on patient and told her this nurse would be back to give her evening medicine, she stated, no poop pills. Non-administered colace for the evening dose.
--- NOTE | 2020-09-17 17:10 | PM.PN ---
Subjective Subjective: Interval history: Today blood pressure noted soft. She does state usual blood pressure gets higher when she gets up and going. She states that home blood pressures, thus needing antihypertensives, usually higher but she does eat also quite a bit of junk food which she states she has not been doing here. Vitals/I&O/Wt Last Vital Signs Temp 98.2 F 09/17/20 15:25 Pulse 82 09/17/20 15:25 Resp 20 H 09/17/20 16:29 BP 119/73 09/17/20 15:25 Pulse Ox 97 09/17/20 15:25 09/17/20 09/17/20 09/17/20 06:59 14:59 22:59 Intake Total 180 / 180 240 / 420 Balance 180 / 180 240 / 420 Physical Exam Const: COMMON NORMALS: no acute distress and patient oriented x3 NUTRITIONAL APPEARANCE: obese HENMT: COMMON NORMALS: oropharynx normal Neck/C-Spine: COMMON NORMALS: no JVD Resp: COMMON NORMALS: normal respiratory effort and clear to auscultation bilaterally AUSCULTATION: clear to auscultation bilaterally Cardio: COMMON NORMALS: no JVD, regular rhythm, S1 normal heart sound present, S2 normal heart sound present and No murmurs present (Cardio) RHYTHM: regular rhythm HEART SOUNDS: S1 normal heart sound present and S2 normal heart sound present GI: COMMON NORMALS: Normal to inspection, nondistended, normoactive bowel sounds present, Soft to palpation and non-tender PALPATION: Yes Soft to palpation Extremity: COMMON NORMALS: no joint enlargement and no pedal edema OTHER: Boot on the right. Fixator, clean gauze dressing on the L without bleeding or strikethrough. Neuro: COMMON NORMALS: patient oriented x3 and moves all extremities Skin: COMMON NORMALS: no rashes or lesions noted GENERAL SKIN EXAM: no rashes or lesions noted Data : 09/12/20 07:25 09/12/20 07:25 A&P Assessment and plan (1) Hypotension: Hypotension this morning, blood pressure as low as 80s systolic. Discussed with nursing staff, we held her lisinopril, propranolol. She states at home usually blood pressure runs higher but she does eat quite a bit of junk food. Discussed with her in case she maintains the diet as current, may not require additional blood pressure medication. Continue to hold lisinopril, propranolol, monitor blood pressures. Monitor for rebound tachycardia. Discussed with her and nursing staff very cautious administration of medications for pain which may contribute to lower blood pressure. Status: Acute (2) Traumatic bilateral lower extremity fractures: She continues her efforts with PT, OT. Continue efforts at mobilization without weightbearing. It appears at home she is unable to get around with a wheelchair. Appreciate case management continued efforts to secure safe placement. Requiring minimum 6 weeks nonweightbearing to right lower extremity, minimum 8 weeks to left lower extremity. Discharge planning continue to work on disposition as she cannot manage things at home and lacking social support. Dressing changes continue twice weekly by podiatry. Continue Lovenox until weightbearing. Oxycodone 10/325 q4hrs prn IS and flutter valve Status: Acute (3) Unable to care for self: Appreciate discharge planning consultation. Arrangements for placement to long-term facility. Status: Acute (4) Generalized anxiety disorder with panic attacks: Status: Chronic (5) Chronic post-traumatic stress disorder: Status: Chronic (6) Major depressive disorder, recurrent, severe with psychotic symptoms: Status: Chronic (7) Medical marijuana use: Status: Chronic Additional A&P Information Smoking addiction: Nicotine replacement. Ear pain/left side neck pain: Secondary to left TMJ disorder. Resolved with cessation of nicotine gum. Continue lozenges as needed. Attestations Medical Necessity Statement*: Continue admission for assessment management of hypotension, optimization of medications, continued efforts with therapy to prevent muscle atrophy, continue to work on transfers while unable to bear weight on either extremity, disposition planning and arrangements. Coding Level of Care Code Acute Beater Engineer for [facility] Diagnoses Hypotension I95.9 Traumatic bilateral lower extremity fractures S82.91XA; S82.92XA Unable to care for self Z78.9 Generalized anxiety disorder with panic attacks F41.1; F41.0 Chronic post-traumatic stress disorder F43.12 Major depressive disorder, recurrent, severe with psychotic symptoms F33.3 Medical marijuana use Z79.899
[2020-09-17] MEDS: cyclobenzaprine 10 mg Tablet PO (21:11)
[2020-09-18] VITALS (12 sets, daily range): BP systolic 113–139; BP diastolic 66–84; PULSE 71–93; RESP 14–19; TEMP 36.7–36.9; O2SAT 94–97
[2020-09-18] MEDS: oxyCODONE-APAP 10-325 mg Tablet 1 TAB PO ×5 (01:51→23:14)
[2020-09-18] MEDS: nicotine 4 mg lozenge PO (09:39)
[2020-09-18] MEDS: BREXPIPRAZOLE 3 MG 3 EACH PO (10:07)
[2020-09-18] MEDS: montelukast sodium 10 mg Tablet PO (10:13)
[2020-09-18] MEDS: doxycycline 100 mg Tablet PO ×2 (10:13→18:58)
[2020-09-18] MEDS: enoxaparin 40 mg/0.4 mL Syringe SUBCUT (10:14)
[2020-09-18] MEDS: cyclobenzaprine 10 mg Tablet PO (10:15)
[2020-09-18] MEDS: gabapentin 100 mg Capsule PO ×2 (10:15→18:58)
[2020-09-18] MEDS: escitalopram 10 mg Tablet PO (10:19)
[2020-09-18] MEDS: nicotine 21 mg Patch 1 PATCH TRANSDERMA (12:41)
[2020-09-18] MEDS: CLONazepam 1 mg Tablet PO (14:07)
--- NOTE | 2020-09-18 16:53 | P.PN_ITS ---
Subjective Subjective: Interval history: Blood pressure is better. Last night she noticed faint papular outbreak on the right cheek. Does not feel she is been doing anything differently. No new medications or foods. No rash anywhere else. Vitals/I&O/Wt Last Vital Signs Temp 98.3 F 09/18/20 16:00 Pulse 93 09/18/20 16:00 Resp 16 09/18/20 16:00 BP 136/84 09/18/20 16:00 Pulse Ox 94 09/18/20 16:00 09/18/20 09/18/20 09/18/20 06:59 14:59 22:59 Intake Total 360 / 360 Balance 360 / 360 Physical Exam Const: COMMON NORMALS: no acute distress and patient oriented x3 NUTRITIONAL APPEARANCE: obese HENMT: COMMON NORMALS: oropharynx normal Neck/C-Spine: COMMON NORMALS: no JVD Resp: COMMON NORMALS: normal respiratory effort and clear to auscultation bilaterally AUSCULTATION: clear to auscultation bilaterally Cardio: COMMON NORMALS: no JVD, regular rhythm, S1 normal heart sound present, S2 normal heart sound present and No murmurs present (Cardio) RHYTHM: regular rhythm HEART SOUNDS: S1 normal heart sound present and S2 normal heart sound present GI: COMMON NORMALS: Normal to inspection, nondistended, normoactive bowel sounds present, Soft to palpation and non-tender PALPATION: Yes Soft to palpation Extremity: COMMON NORMALS: no joint enlargement and no pedal edema OTHER: Boot on the right. Fixator, clean gauze dressing on the L without bleeding or strikethrough. Neuro: COMMON NORMALS: patient oriented x3 and moves all extremities Skin: RASHES: rashes noted (Faint papular right lower cheek) Data : 09/12/20 07:25 09/12/20 07:25 A&P Assessment and plan (1) Hypotension: Hypotension resolved. Blood pressure close to goal. Continue cardiac diet. Monitor. Lisinopril and propranolol have been held. Monitor for rebound tachycardia. Discussed with her and nursing staff very cautious administration of medications for pain which may contribute to lower blood pressure. Status: Acute (2) Traumatic bilateral lower extremity fractures: She continues her efforts with PT, OT. Continue efforts at mobilization without weightbearing. It appears at home she is unable to get around with a wheelchair. Appreciate case management continued efforts to secure safe placement. Requiring minimum 6 weeks nonweightbearing to right lower extremity, minimum 8 weeks to left lower extremity. Discharge planning continue to work on disposition as she cannot manage things at home and lacking social support. Dressing changes continue twice weekly by podiatry. Continue Lovenox until weightbearing. Oxycodone 10/325 q4hrs prn IS and flutter valve Status: Acute (3) Unable to care for self: Appreciate discharge planning consultation. [facility]rang[facility] to [facility]. Status: Acute (4) Generalized anxiety disorder with panic attacks: Status: Chronic (5) Chronic post-traumatic stress disorder: Status: Chronic (6) Major depressive disorder, recurrent, severe with psychotic symptoms: Status: Chronic (7) Medical marijuana use: Status: Chronic Additional A&P Information Rash: Faint pinkish papular rash: Very faint, unclear etiology. No changes in medications recently. No new food. No rashes elsewhere. Discussed with her to monitor if she notices changes in symptoms related to particular medication or food to let us know. Smoking addiction: Nicotine replacement. Ear pain/left side neck pain: Secondary to left TMJ disorder. Resolved with ce ssation of nicotine gum. Continue lozenges as needed. Attestations Medical Necessity Statement*: Continue admission for management following bilateral ankle fractures, nonweightbearing, continued efforts with physical therapy as well as regarding disposition planning. Continued wound care. Cannot currently care for herself. Also continue optimization of blood pressure, reevaluation of new rash. Coding Level of Care Code Acute Wedding Designer for [facility] Diagnoses Hypotension I95.9 Traumatic bilateral lower extremity fractures S82.91XA; S82.92XA Unable to care for self Z78.9 Generalized anxiety disorder with panic attacks F41.1; F41.0 Chronic post-traumatic stress disorder F43.12 Major depressive disorder, recurrent, severe with psychotic symptoms F33.3 Medical marijuana use Z79.899
[2020-09-19] VITALS (12 sets, daily range): BP systolic 103–132; BP diastolic 68–85; PULSE 78–100; RESP 16–20; TEMP 36.6–37.2; O2SAT 96–98
[2020-09-19] MEDS: oxyCODONE-APAP 10-325 mg Tablet 1 TAB PO ×5 (02:58→20:24)
--- NOTE | 2020-09-19 05:47 | PC.NURSE ---
SHIFT SUMMARY Has rested well. Is pleasant and talkative. Requests her po pain med pretty much right at every 4 hours. Boot to right LE and external fixator to left LE. Dressings around pins D&I. Is getting self over to [facility] to urinate and have BM's. Seems motivated to do for herself as much as she is able.
[2020-09-19] MEDS: BREXPIPRAZOLE 3 MG 3 EACH PO (08:29)
[2020-09-19] MEDS: enoxaparin 40 mg/0.4 mL Syringe SUBCUT (08:31)
[2020-09-19] MEDS: doxycycline 100 mg Tablet PO ×2 (08:31→18:44)
[2020-09-19] MEDS: nicotine 4 mg lozenge PO ×2 (08:31→18:44)
[2020-09-19] MEDS: escitalopram 10 mg Tablet PO (08:31)
[2020-09-19] MEDS: gabapentin 100 mg Capsule PO ×2 (08:31→18:43)
[2020-09-19] MEDS: montelukast sodium 10 mg Tablet PO (08:31)
[2020-09-19] MEDS: cyclobenzaprine 10 mg Tablet PO ×2 (15:16→22:36)
--- NOTE | 2020-09-19 15:39 | PM.PN ---
Subjective Subjective: Interval history: no acute interim events, patient comfortbaly retsing Vitals/I&O/Wt Last Vital Signs Temp 98.2 F 09/19/20 15:14 Pulse 78 09/19/20 15:14 Resp 18 09/19/20 15:16 BP 132/84 09/19/20 15:14 Pulse Ox 98 09/19/20 15:16 09/19/20 09/19/20 09/19/20 06:59 14:59 22:59 Intake Total 480 / 1080 240 / 240 Output Total 400 / 600 600 / 600 Balance 80 / 480 -360 / -360 Physical Exam Narrative: EXAM NARRATIVE: GEN: Awake, alert and oriented, no acute distress CVS: S1S2 N RS: CTA B/L Data : 09/12/20 07:25 09/12/20 07:25 A&P Assessment and plan (1) Hypotension: Hypotension resolved. Blood pressure close to goal. Continue cardiac diet. Monitor. Lisinopril and propranolol have been held. Monitor for rebound tachycardia. Discussed with her and nursing staff very cautious administration of medications for pain which may contribute to lower blood pressure. Status: Acute (2) Traumatic bilateral lower extremity fractures: She continues her efforts with PT, OT. Continue efforts at mobilization without weightbearing. It appears at home she is unable to get around with a wheelchair. Appreciate case management continued efforts to secure safe placement. Requiring minimum 6 weeks nonweightbearing to right lower extremity, minimum 8 weeks to left lower extremity. Discharge planning continue to work on disposition as she cannot manage things at home and lacking social support. Dressing changes continue twice weekly by podiatry. Continue Lovenox until weightbearing. Oxycodone 10/325 q4hrs prn IS and flutter valve Status: Acute (3) Unable to care for self: Appreciate discharge planning consultation. Arrangements for placement to intermediate facility. Status: Acute (4) Generalized anxiety disorder with panic attacks: Status: Chronic (5) Chronic post-traumatic stress disorder: Status: Chronic (6) Major depressive disorder, recurrent, severe with psychotic symptoms: Status: Chronic (7) Medical marijuana use: Status: Chronic Additional A&P Information Rash: Faint pinkish papular rash: Very faint, unclear etiology. No changes in medications recently. No new food. No rashes elsewhere. Discussed with her to monitor if she notices changes in symptoms related to particular medication or food to let us know. Smoking addiction: Nicotine replacement. Ear pain/left side neck pain: Secondary to left TMJ disorder. Resolved with cessation of nicotine gum. Continue lozenges as needed. Attestations Medical Necessity Statement*: awaiting safe disposition planning Coding Level of Care Code Acute Ent Nurse for [facility] Fwd Diagnoses Hypotension I95.9 Traumatic bilateral lower extremity fractures S82.91XA; S82.92XA Unable to care for self Z78.9 Generalized anxiety disorder with panic attacks F41.1; F41.0 Chronic post-traumatic stress disorder F43.12 Major depressive disorder, recurrent, severe with psychotic symptoms F33.3 Medical marijuana use Z79.899
[2020-09-19] MEDS: ibuprofen 200 mg Tablet 400 MG PO (18:43)
[2020-09-19] MEDS: nicotine 21 mg Patch 1 PATCH TRANSDERMA (18:44)
[2020-09-19] MEDS: CLONazepam 1 mg Tablet PO (20:24)
[2020-09-19] MEDS: acetaminophen 325 mg Tablet 650 MG PO (22:36)
[2020-09-20] VITALS (13 sets, daily range): BP systolic 102–133; BP diastolic 58–84; PULSE 79–94; RESP 12–20; TEMP 36.7–37; O2SAT 95–99
[2020-09-20] MEDS: oxyCODONE-APAP 10-325 mg Tablet 1 TAB PO ×6 (00:40→22:43)
[2020-09-20] MEDS: acetaminophen 325 mg Tablet 650 MG PO (08:49)
[2020-09-20] MEDS: CLONazepam 1 mg Tablet PO ×2 (08:49→23:11)
[2020-09-20] MEDS: montelukast sodium 10 mg Tablet PO (08:50)
[2020-09-20] MEDS: doxycycline 100 mg Tablet PO ×2 (08:50→17:42)
[2020-09-20] MEDS: cyclobenzaprine 10 mg Tablet PO ×3 (08:50→22:36)
[2020-09-20] MEDS: enoxaparin 40 mg/0.4 mL Syringe SUBCUT (08:50)
[2020-09-20] MEDS: gabapentin 100 mg Capsule PO ×2 (08:50→17:42)
[2020-09-20] MEDS: escitalopram 10 mg Tablet PO (08:50)
[2020-09-20] MEDS: BREXPIPRAZOLE 3 MG 3 EACH PO (08:51)
[2020-09-20] MEDS: nicotine 21 mg Patch 1 PATCH TRANSDERMA (19:44)
--- NOTE | 2020-09-20 20:39 | PM.PN ---
Subjective Subjective: Interval history: no acute interim events. Medications: Medication Review Details: I personally reviewed home medication list Vitals/I&O/Wt Last Vital Signs Temp 98.5 F 09/20/20 20:00 Pulse 88 09/20/20 20:00 Resp 16 09/20/20 20:00 BP 106/71 09/20/20 20:00 Pulse Ox 99 09/20/20 20:00 09/20/20 09/20/20 09/20/20 06:59 14:59 22:59 Intake Total 400 / 1340 360 / 360 460 / 820 Output Total 200 / 1300 100 / 100 300 / 400 Balance 200 / 40 260 / 260 160 / 420 Physical Exam Narrative: EXAM NARRATIVE: GEN: Awake, alert and oriented, no acute distress CVS: S1S2 N RS: CTA B/L Data : 09/12/20 07:25 09/12/20 07:25 A&P Assessment and plan (1) Hypotension: Hypotension resolved. Blood pressure close to goal. Continue cardiac diet. Monitor. Lisinopril and propranolol have been held. Monitor for rebound tachycardia. Discussed with her and nursing staff very cautious administration of medications for pain which may contribute to lower blood pressure. Status: Acute (2) Traumatic bilateral lower extremity fractures: She continues her efforts with PT, OT. Continue efforts at mobilization without weightbearing. It appears at home she is unable to get around with a wheelchair. Appreciate case management continued efforts to secure safe placement. Requiring minimum 6 weeks nonweightbearing to right lower extremity, minimum 8 weeks to left lower extremity. Discharge planning continue to work on disposition as she cannot manage things at home and lacking social support. Dressing changes continue twice weekly by podiatry. Continue Lovenox until weightbearing. Oxycodone 10/325 q4hrs prn IS and flutter valve Status: Acute (3) Unable to care for self: Appreciate discharge planning consultation. [facility] Status: Acute (4) Generalized anxiety disorder with panic attacks: Status: Chronic (5) Chronic post-traumatic stress disorder: Status: Chronic (6) Major depressive disorder, recurrent, severe with psychotic symptoms: Status: Chronic (7) Medical marijuana use: Status: Chronic Additional A&P Information Rash: Faint pinkish papular rash: Very faint, unclear etiology. No changes in medications recently. No new food. No rashes elsewhere. Discussed with her to monitor if she notices changes in symptoms related to particular medication or food to let us know. Smoking addiction: Nicotine replacement. Ear pain/left side neck pain: Secondary to left TMJ disorder. Resolved with cessation of nicotine gum. Continue lozenges as needed. Attestations Medical Necessity Statement*: ongoing disposition planning Coding Level of Care Code Acute Terrazzo Polisher for [facility] Fwd Diagnoses Hypotension I95.9 Traumatic bilateral lower extremity fractures S82.91XA; S82.92XA Unable to care for self Z78.9 Generalized anxiety disorder with panic attacks F41.1; F41.0 Chronic post-traumatic stress disorder F43.12 Major depressive disorder, recurrent, severe with psychotic symptoms F33.3 Medical marijuana use Z79.899
[2020-09-21] VITALS (11 sets, daily range): BP systolic 101–147; BP diastolic 61–84; PULSE 80–93; RESP 12–19; TEMP 36.4–36.8; O2SAT 93–99
[2020-09-21] MEDS: oxyCODONE-APAP 10-325 mg Tablet 1 TAB PO ×5 (03:46→21:59)
[2020-09-21] MEDS: gabapentin 100 mg Capsule PO ×2 (08:30→17:55)
[2020-09-21] MEDS: CLONazepam 1 mg Tablet PO ×2 (08:30→20:38)
[2020-09-21] MEDS: cyclobenzaprine 10 mg Tablet PO ×3 (08:30→20:38)
[2020-09-21] MEDS: doxycycline 100 mg Tablet PO ×2 (08:30→17:55)
[2020-09-21] MEDS: montelukast sodium 10 mg Tablet PO (08:31)
[2020-09-21] MEDS: escitalopram 10 mg Tablet PO (08:31)
[2020-09-21] MEDS: BREXPIPRAZOLE 3 MG 3 EACH PO (08:31)
[2020-09-21] MEDS: enoxaparin 40 mg/0.4 mL Syringe SUBCUT (08:31)
--- NOTE | 2020-09-21 13:03 | XR_ITS ---
WS: [id number] Right ankle, 3 views, 09/21/2020 Clinical Data: talus fracture Comparison: Right ankle, 09/09/2020. Findings: There is a fracture the tip of the distal right fibula. There may be a fracture of the lateral aspect of the talar articular surface. This is not well seen on today's examination. XR/XR ankle RT min 3V* [id number] Impression: 1. Fracture of tip of the right lateral malleolus unchanged. 2. Possible fracture of the lateral aspect of the articular surface of the righ t talus.
--- NOTE | 2020-09-21 13:04 | XR_ITS ---
WS: [id number] Left ankle, 3 views, 09/21/2020 Clinical Data: talus fracture Comparison: Left ankle, 09/09/2020. Findings: The talar fracture is reduced with external skeletal fixation. The skeletal fixation is within the ca lcaneus and the metatarsals. XR/XR ankle LT min 3V* [id number] Impression: External skeletal fixation to reduce talar fracture of the left ankle.
[2020-09-21] MEDS: ibuprofen 200 mg Tablet 400 MG PO (13:46)
[2020-09-21] MEDS: ondansetron 4 MG Tablet PO (20:38)
--- NOTE | 2020-09-21 22:29 | P.PN_ITS ---
Subjective Subjective: Interval history: reports pain being inadequatley controlled, prn dilaudid added today Medications: Medication Review Details: I personally reviewed home medication list Vitals/I&O/Wt Last Vital Signs Temp 98.3 F 09/21/20 20:00 Pulse 89 09/21/20 20:00 Resp 19 H 09/21/20 21:59 BP 147/84 09/21/20 20:00 Pulse Ox 98 09/21/20 20:00 09/21/20 09/21/20 09/21/20 06:59 14:59 22:59 Intake Total 860 / 2160 600 / 600 120 / 720 Output Total 450 / 1050 Balance 410 / 1110 600 / 600 120 / 720 Physical Exam Narrative: EXAM NARRATIVE: GEN: Awake, alert and oriented, no acute distress CVS: S1S2 N RS: CTA B/L Data : 09/12/20 07:25 09/12/20 07:25 A&P Assessment and plan (1) Hypotension: Hypotension resolved. Blood pressure close to goal. Continue cardiac diet. Monitor. Lisinopril and propranolol have been held. Monitor for rebound tachycardia. Discussed with her and nursing staff very cautious administration of medications for pain which may contribute to lower blood pressure. Status: Acute (2) Traumatic bilateral lower extremity fractures: She continues her efforts with PT, OT. Continue efforts at mobilization without weightbearing. It appears at home she is unable to get around with a wheelchair. Appreciate case management continued efforts to secure safe placement. Requiring minimum 6 weeks nonweightbearing to right lower extremity, minimum 8 weeks to left lower extremity. Discharge planning continue to work on disposition as she cannot manage things at home and lacking social support. Dressing changes continue twice weekly by podiatry. Continue Lovenox until weightbearing. Oxycodone 10/325 q4hrs prn IS and flutter valve Status: Acute (3) Unable to care for self: Appreciate discharge planning consultation. Arrangements for placement to [facility] facility. Status: Acute (4) Generalized anxiety disorder with panic attacks: Status: Chronic (5) Chronic post-traumatic stress disorder: Status: Chronic (6) Major depressive disorder, recurrent, severe with psychotic symptoms: Status: Chronic (7) Medical marijuana use: Status: Chronic Additional A&P Information Rash: Faint pinkish papular rash: Very faint, unclear etiology. No changes in medications recently. No new food. No rashes elsewhere. Discussed with her to monitor if she notices changes in symptoms related to particular medication or food to let us know. Smoking addiction: Nicotine replacement. Ear pain/left side neck pain: Secondary to left TMJ disorder. Resolved with cessation of nicotine gum. Continue lozenges as needed. Attestations Medical Necessity Statement*: awaiting safe disposition planning , pain control Coding Level of Care Code Acute Regulatory Attorney for [facility] Fwd Diagnoses Hypotension I95.9 Traumatic bilateral lower extremity fractures S82.91XA; S82.92XA Unable to care for self Z78.9 Generalized anxiety disorder with panic attacks F41.1; F41.0 Chronic post-traumatic stress disorder F43.12 Major depressive disorder, recurrent, severe with psychotic symptoms F33.3 Medical marijuana use Z79.899
[2020-09-22] VITALS (13 sets, daily range): BP systolic 112–132; BP diastolic 68–76; PULSE 72–97; RESP 16–20; TEMP 36.2–36.9; O2SAT 93–97
[2020-09-22] MEDS: oxyCODONE-APAP 10-325 mg Tablet 1 TAB PO ×5 (04:45→23:15)
[2020-09-22] MEDS: enoxaparin 40 mg/0.4 mL Syringe SUBCUT (08:01)
[2020-09-22] MEDS: doxycycline 100 mg Tablet PO (08:02)
[2020-09-22] MEDS: montelukast sodium 10 mg Tablet PO (08:02)
[2020-09-22] MEDS: gabapentin 100 mg Capsule PO ×2 (08:02→18:44)
[2020-09-22] MEDS: escitalopram 10 mg Tablet PO (08:02)
[2020-09-22] MEDS: CLONazepam 1 mg Tablet PO ×2 (08:02→18:44)
[2020-09-22] MEDS: nicotine 21 mg Patch 1 PATCH TRANSDERMA (10:21)
--- NOTE | 2020-09-22 10:49 | PC.NUTR ---
Nutrition reassessment: Recommend diet clarification (Regular vs. Cardiac) Regular is ordered at this time, however per physician's notes 09/18/20-09/21/20, it should be Cardiac diet. Also recommend to obtain current weight. Last weight obtained was at admission. See RD assessment for further details.
[2020-09-22] MEDS: ondansetron 4 MG Tablet PO (13:03)
[2020-09-22] MEDS: ibuprofen 200 mg Tablet 400 MG PO (16:36)
--- NOTE | 2020-09-22 17:03 | PC.NURSE ---
Attempted to change patient's dressing's at this time. Patient states, Dr. Lizarraga said to not let anyone else touch it. Explained to patient that Dr. Lizarraga will not be back until Saturday of next week. Patient states, I think it will be fine he said it only had to be changed one time a week and that he would be the one to do it. I just want this top part rewrapped and then I will wait for him. Rewrapped upper part with new Kerlix.
--- NOTE | 2020-09-22 18:12 | P.PN_ITS ---
Subjective Subjective: Interval history: no new complaints, pain controlled Medications: Medication Review Details: I personally reviewed home medication list Vitals/I&O/Wt Last Vital Signs Temp 97.2 F L 09/22/20 15:37 Pulse 81 09/22/20 15:37 Resp 19 H 09/22/20 15:37 BP 132/68 09/22/20 15:37 Pulse Ox 97 09/22/20 15:37 09/22/20 09/22/20 09/22/20 06:59 14:59 22:59 Intake Total 900 / 2440 660 / 660 360 / 1020 Output Total 300 / 500 500 / 500 300 / 800 Balance 600 / 1940 160 / 160 60 / 220 Physical Exam Narrative: EXAM NARRATIVE: GEN: Awake, alert and oriented, no acute distress CVS: S1S2 N RS: CTA B/L Data : 09/12/20 07:25 09/12/20 07:25 A&P Assessment and plan (1) Hypotension: Hypotension resolved. Blood pressure close to goal. Continue cardiac diet. Monitor. Lisinopril and propranolol have been held. Monitor for rebound tachycardia. Discussed with her and nursing staff very cautious administration of medications for pain which may contribute to lower blood pressure. Status: Acute (2) Traumatic bilateral lower extremity fractures: She continues her efforts with PT, OT. Continue efforts at mobilization without weightbearing. It appears at home she is unable to get around with a wheelchair. Appreciate case management continued efforts to secure safe placement. Requiring minimum 6 weeks nonweightbearing to right lower extremity, minimum 8 weeks to left lower extremity. Discharge planning continue to work on disposition as she cannot manage things at home and lacking social support. Dressing changes continue twice weekly by podiatry. Continue Lovenox until weightbearing. Oxycodone 10/325 q4hrs prn IS and flutter valve Status: Acute (3) Unable to care for self: Appreciate discharge planning consultation. Arrangements for placement to group home facility. Status: Acute (4) Generalized anxiety disorder with panic attacks: Status: Chronic (5) Chronic post-traumatic stress disorder: Status: Chronic (6) Major depressive disorder, recurrent, severe with psychotic symptoms: Status: Chronic (7) Medical marijuana use: Status: Chronic Additional A&P Information Rash: Faint pinkish papular rash: Very faint, unclear etiology. No changes in medications recently. No new food. No rashes elsewhere. Discussed with her to monitor if she notices changes in symptoms related to particular medication or food to let us know. Smoking addiction: Nicotine replacement. Ear pain/left side neck pain: Secondary to left TMJ disorder. Resolved with cessation of nicotine gum. Continue lozenges as needed. 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
--- NOTE | 2020-09-22 19:27 | PC.NURSE ---
Report to Sandra JADE at this time.
[2020-09-23] VITALS (15 sets, daily range): BP systolic 104–141; BP diastolic 61–86; PULSE 83–107; RESP 14–18; TEMP 36.5–36.9; O2SAT 95–100
[2020-09-23] MEDS: oxyCODONE-APAP 10-325 mg Tablet 1 TAB PO ×5 (05:38→21:40)
--- NOTE | 2020-09-23 05:51 | PC.NURSE ---
SHIFT NOTE PATIENT RESTED THROUGHOUT THE NIGHT, WHEN PATIENT WAKES UP, PATIENT REQUESTS SPECIFIC PAIN MEDICATIONS FOR THAT SPECIFIC TIME, RATING PAIN AT 8-10 AND FOCAL POINT OF PAIN IS BACK AND BILAT LE
[2020-09-23] MEDS: CLONazepam 1 mg Tablet PO ×2 (06:49→17:39)
[2020-09-23] MEDS: gabapentin 100 mg Capsule PO ×2 (09:02→17:39)
[2020-09-23] MEDS: cyclobenzaprine 10 mg Tablet PO ×2 (09:02→16:24)
[2020-09-23] MEDS: nicotine 21 mg Patch 1 PATCH TRANSDERMA (09:04)
--- NOTE | 2020-09-23 14:00 | PC.NURSE ---
Patient's dressing changed at this time. Patient tolerated okay. Family at bedside while dressing was being changed.
[2020-09-23] MEDS: doxycycline 100 mg Tablet PO (17:39)
--- NOTE | 2020-09-23 18:11 | PM.PN ---
Subjective Subjective: Interval history: pain controlled, fixator plaanned to be removed on Saturday, no acute interim events Medications: Medication Review Details: I personally reviewed home medication list Vitals/I&O/Wt Last Vital Signs Temp 97.8 F 09/23/20 11:59 Pulse 83 09/23/20 11:59 Resp 18 09/23/20 17:39 BP 141/86 09/23/20 11:59 Pulse Ox 95 09/23/20 17:39 09/23/20 09/23/20 09/23/20 06:59 14:59 22:59 Intake Total 480 / 480 Balance 480 / 480 Physical Exam Narrative: EXAM NARRATIVE: GEN: Awake, alert and oriented, no acute distress CVS: S1S2 N RS: CTA B/L Data : 09/12/20 07:25 09/12/20 07:25 A&P Assessment and plan (1) Hypotension: Hypotension resolved. Status: Acute (2) Traumatic bilateral lower extremity fractures: She continues her efforts with PT, OT. Continue efforts at mobilization without weightbearing. It appears at home she is unable to get around with a wheelchair Requiring minimum 6 weeks nonweightbearing to right lower extremity, planend for removal of fixator on Saturday Discharge planning continue to work on disposition, planned to be discharged home with family assistance Dressing changes continue twice weekly Continue Lovenox until weightbearing. Oxycodone 10/325 q4hrs prn IS and flutter valve Status: Acute (3) Unable to care for self: Appreciate discharge planning consultation. Arrangements for placement to longterm facility. Status: Acute (4) Generalized anxiety disorder with panic attacks: Status: Chronic (5) Chronic post-traumatic stress disorder: Status: Chronic (6) Major depressive disorder, recurrent, severe with psychotic symptoms: Status: Chronic (7) Medical marijuana use: Status: Chronic Additional A&P Information Smoking addiction: Nicotine replacement. Ear pain/left side neck pain: Secondary to left TMJ disorder. Resolved with cessation of nicotine gum. Continue lozenges as needed. 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
--- NOTE | 2020-09-23 19:14 | PC.NURSE ---
Report to Sandra JADE at this time.
[2020-09-23] MEDS: enoxaparin 40 mg/0.4 mL Syringe SUBCUT (20:55)
[2020-09-23] MEDS: ibuprofen 200 mg Tablet 400 MG PO (23:58)
[2020-09-24] VITALS (14 sets, daily range): BP systolic 109–151; BP diastolic 60–87; PULSE 87–96; RESP 16–18; TEMP 36.6–36.9; O2SAT 95–98
[2020-09-24] MEDS: oxyCODONE-APAP 10-325 mg Tablet 1 TAB PO ×5 (03:46→22:05)
[2020-09-24] MEDS: cyclobenzaprine 10 mg Tablet PO ×3 (06:48→22:05)
[2020-09-24] MEDS: CLONazepam 1 mg Tablet PO ×2 (06:48→17:15)
[2020-09-24] MEDS: ibuprofen 200 mg Tablet 400 MG PO ×2 (06:49→14:11)
--- NOTE | 2020-09-24 07:17 | PC.NURSE ---
menstrual cycle started this morning
[2020-09-24] MEDS: gabapentin 100 mg Capsule PO ×2 (07:55→17:15)
[2020-09-24] MEDS: doxycycline 100 mg Tablet PO ×2 (07:56→17:15)
[2020-09-24] MEDS: nicotine 21 mg Patch 1 PATCH TRANSDERMA (07:57)
--- NOTE | 2020-09-24 18:37 | PM.PN ---
Subjective Subjective: Interval history: no new complaints, pain status fluctuates during the day, dressings changed Medications: Medication Review Details: I personally reviewed home medication list Vitals/I&O/Wt Last Vital Signs Temp 98.0 F 09/24/20 15:54 Pulse 96 09/24/20 15:54 Resp 16 09/24/20 17:15 BP 136/81 09/24/20 15:54 Pulse Ox 97 09/24/20 15:54 09/24/20 09/24/20 09/24/20 06:59 14:59 22:59 Intake Total 480 / 1673 250 / 250 250 / 500 Output Total 1600 / 1600 Balance -1120 / 73 250 / 250 250 / 500 Physical Exam Narrative: EXAM NARRATIVE: GEN: Awake, alert and oriented, no acute distress CVS: S1S2 N RS: CTA B/L Data : 09/12/20 07:25 09/12/20 07:25 A&P Assessment and plan (1) Hypotension: Hypotension resolved. Status: Acute (2) Traumatic bilateral lower extremity fractures: She continues her efforts with PT, OT. Continue efforts at mobilization without weightbearing. It appears at home she is unable to get around with a wheelchair Requiring minimum 6 weeks nonweightbearing to right lower extremity, planend for removal of fixator on Saturday Discharge planning continue to work on disposition, planned to be discharged home with family assistance Dressing changes continue twice weekly Continue Lovenox until weightbearing. Oxycodone 10/325 q4hrs prn IS and flutter valve Status: Acute (3) Unable to care for self: Appreciate discharge planning consultation. Arrangements for placement to [facility] facility. Status: Acute (4) Generalized anxiety disorder with panic attacks: Status: Chronic (5) Chronic post-traumatic stress disorder: Status: Chronic (6) Major depressive disorder, recurrent, severe with psychotic symptoms: Status: Chronic (7) Medical marijuana use: Status: Chronic Additional A&P Information Smoking addiction: Nicotine replacement. Ear pain/left side neck pain: Secondary to left TMJ disorder. Resolved with cessation of nicotine gum. Continue lozenges as needed. Attestations Medical Necessity Statement*: Awaiting removal of external fixator early next week. 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
--- NOTE | 2020-09-24 19:10 | PC.NURSE ---
Report to Irlanda JADE at this time
[2020-09-24] MEDS: propranolol 40 mg Tablet 20 MG PO (22:05)
[2020-09-24] MEDS: enoxaparin 40 mg/0.4 mL Syringe SUBCUT (22:06)
[2020-09-25] VITALS (13 sets, daily range): BP systolic 97–130; BP diastolic 57–87; PULSE 77–108; RESP 17–18; TEMP 36.2–36.6; O2SAT 95–99
[2020-09-25] MEDS: oxyCODONE-APAP 10-325 mg Tablet 1 TAB PO ×4 (03:12→20:15)
[2020-09-25] MEDS: gabapentin 100 mg Capsule PO ×2 (09:09→18:14)
[2020-09-25] MEDS: nicotine 21 mg Patch 1 PATCH TRANSDERMA (09:09)
[2020-09-25] MEDS: propranolol 40 mg Tablet 20 MG PO ×3 (09:09→20:15)
[2020-09-25] MEDS: nicotine 4 mg lozenge PO (09:09)
[2020-09-25] MEDS: doxycycline 100 mg Tablet PO ×2 (09:10→18:14)
[2020-09-25] MEDS: CLONazepam 1 mg Tablet PO ×2 (10:34→22:07)
[2020-09-25] MEDS: BREXPIPRAZOLE 3 MG 3 EACH PO (10:38)
[2020-09-25] MEDS: ondansetron 4 MG Tablet PO (14:41)
[2020-09-25] MEDS: cyclobenzaprine 10 mg Tablet PO ×2 (16:33→22:07)
--- NOTE | 2020-09-25 16:48 | PM.PN ---
Subjective Subjective: Interval history: no acute interim events, stable, planned OR on saturday Medications: Medication Review Details: I personally reviewed home medication list Vitals/I&O/Wt Last Vital Signs Temp 97.1 F L 09/25/20 16:00 Pulse 77 09/25/20 16:00 Resp 18 09/25/20 16:00 BP 112/73 09/25/20 16:00 Pulse Ox 99 09/25/20 16:00 09/25/20 09/25/20 09/25/20 06:59 14:59 22:59 Intake Total 120 / 1100 1194 / 1194 Output Total 351 / 351 Balance -231 / 749 1194 / 1194 Physical Exam Narrative: EXAM NARRATIVE: GEN: Awake, alert and oriented, no acute distress CVS: S1S2 N RS: CTA B/L Data : 09/12/20 07:25 09/12/20 07:25 A&P Assessment and plan (1) Hypotension: Hypotension resolved. Status: Acute (2) Traumatic bilateral lower extremity fractures: She continues her efforts with PT, OT. Continue efforts at mobilization without weightbearing. It appears at home she is unable to get around with a wheelchair Requiring minimum 6 weeks nonweightbearing to right lower extremity, planend for removal of fixator on Saturday Discharge planning continue to work on disposition, planned to be discharged home with family assistance Dressing changes continue twice weekly Continue Lovenox until weightbearing. Oxycodone 10/325 q4hrs prn IS and flutter valve Status: Acute (3) Unable to care for self: Appreciate discharge planning consultation. Arrangements for placement to snf facility. Status: Acute (4) Generalized anxiety disorder with panic attacks: Status: Chronic (5) Chronic post-traumatic stress disorder: Status: Chronic (6) Major depressive disorder, recurrent, severe with psychotic symptoms: Status: Chronic (7) Medical marijuana use: Status: Chronic Additional A&P Information Smoking addiction: Nicotine replacement. Ear pain/left side neck pain: Secondary to left TMJ disorder. Resolved with cessation of nicotine gum. Continue lozenges as needed. 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
[2020-09-25] MEDS: enoxaparin 40 mg/0.4 mL Syringe SUBCUT (20:14)
[2020-09-26] VITALS (13 sets, daily range): BP systolic 108–136; BP diastolic 66–86; PULSE 75–96; RESP 17–20; TEMP 36.5–36.9; O2SAT 97–98
[2020-09-26] MEDS: oxyCODONE-APAP 10-325 mg Tablet 1 TAB PO ×5 (01:37→22:31)
[2020-09-26] MEDS: cyclobenzaprine 10 mg Tablet PO ×2 (06:26→17:20)
[2020-09-26] MEDS: BREXPIPRAZOLE 3 MG 3 EACH PO (08:39)
[2020-09-26] MEDS: doxycycline 100 mg Tablet PO ×2 (08:40→17:20)
[2020-09-26] MEDS: gabapentin 100 mg Capsule PO ×2 (08:40→17:20)
[2020-09-26] MEDS: propranolol 40 mg Tablet 20 MG PO ×3 (08:40→21:14)
[2020-09-26] MEDS: nicotine 4 mg lozenge PO (08:45)
[2020-09-26] MEDS: nicotine 21 mg Patch 1 PATCH TRANSDERMA (09:05)
[2020-09-26] MEDS: CLONazepam 1 mg Tablet PO (12:00)
--- NOTE | 2020-09-26 15:18 | PM.PN ---
Subjective Subjective: Interval history: Reports she is doing all right, but is needing something for pain, asking when she is due for her next medication. Vitals/I&O/Wt Last Vital Signs Temp 98.2 F 09/26/20 11:28 Pulse 91 09/26/20 11:28 Resp 18 09/26/20 15:13 BP 124/84 09/26/20 11:28 Pulse Ox 97 09/26/20 15:13 09/26/20 09/26/20 09/26/20 06:59 14:59 22:59 Intake Total 240 / 1674 600 / 600 Output Total 1800 / 2000 850 / 850 Balance -1560 / -326 -250 / -250 Physical Exam Const: COMMON NORMALS: no acute distress and patient oriented x3 NUTRITIONAL APPEARANCE: obese HENMT: COMMON NORMALS: oropharynx normal Neck/C-Spine: COMMON NORMALS: no JVD Resp: COMMON NORMALS: normal respiratory effort and clear to auscultation bilaterally AUSCULTATION: clear to auscultation bilaterally Cardio: COMMON NORMALS: no JVD, regular rhythm, S1 normal heart sound present, S2 normal heart sound present and No murmurs present (Cardio) RHYTHM: regular rhythm HEART SOUNDS: S1 normal heart sound present and S2 normal heart sound present GI: COMMON NORMALS: Normal to inspection, nondistended, normoactive bowel sounds present, Soft to palpation and non-tender PALPATION: Yes Soft to palpation Extremity: COMMON NORMALS: no joint enlargement and no pedal edema OTHER: Boot on the right. Fixator, clean gauze dressing on the L without bleeding or strikethrough. Neuro: COMMON NORMALS: patient oriented x3 and moves all extremities Skin: COMMON NORMALS: no rashes or lesions noted GENERAL SKIN EXAM: no rashes or lesions noted RASHES: rashes noted (Faint papular right lower cheek) Data : 09/12/20 07:25 09/12/20 07:25 A&P Assessment and plan (1) Traumatic bilateral lower extremity fractures: She reports plans for fixator removal of the left ankle on 09/27. Will request n.p.o. after midnight. Hold beta-jason after tonight's dose. Hold Lovenox prior to surgery. Reaching out to podiatry to discuss if anything else will be required. Requiring minimum 6 weeks nonweightbearing to right lower extremity, planend for removal of fixator on Saturday Discharge planning continue to work on disposition, planned to be discharged home with family assistance Dressing changes continue twice weekly Continue Lovenox until weightbearing. Oxycodone 10/325 q4hrs prn, currently also on Dilaudid. IS and flutter valve Status: Acute (2) Hypotension: Hypotension resolved. Status: Acute (3) Unable to care for self: Appreciate discharge planning consultation. Arrangements for placement to halfway facility. Status: Acute (4) Generalized anxiety disorder with panic attacks: Status: Chronic (5) Chronic post-traumatic stress disorder: Status: Chronic (6) Major depressive disorder, recurrent, severe with psychotic symptoms: Status: Chronic (7) Medical marijuana use: Status: Chronic Additional A&P Information Smoking addiction: Nicotine replacement. Ear pain/left side neck pain: Secondary to left TMJ disorder. Resolved with cessation of nicotine gum. Continue lozenges as needed. Attestations Medical Necessity Statement*: Continue admission for assessment of management of bilateral ankle fractures, arrangements for removal of fixator of left ankle, disposition planning and arrangement. 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
[2020-09-26] MEDS: ondansetron 4 MG Tablet PO (16:09)
[2020-09-27] VITALS (26 sets, daily range): BP systolic 92–147; BP diastolic 38–88; PULSE 74–92; RESP 8–20; TEMP 36.3–37.3; O2SAT 93–98
[2020-09-27] MEDS: CLONazepam 1 mg Tablet PO ×3 (00:42→22:06)
[2020-09-27] MEDS: oxyCODONE-APAP 10-325 mg Tablet 1 TAB PO ×4 (02:26→21:36)
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
[2020-09-27 06:34] LABS: HCG Qualitative Urine. Negative (Negative)
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
[2020-09-27] MEDS: HYDROmorphone 1 mg/mL INJ 1 mL 0.5 MG IVP ×2 (07:29→07:42)
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
--- NOTE | 2020-09-27 07:33 | ANE.PACU2 ---
Inpatient post-anesthesia follow up: Airway intact: Yes Vital signs: Temperature 98.3 F Pulse Rate [Monito r] 81 Pulse Rate 74 Respiratory Rate 20 Blood Pressure [Ri ght Arm] 144/68 Blood Pressure 118/88 Pulse Oximetry 96 Oxygen Delivery Me thod Room Air Oxygen Flow Rate 3 Fraction of Inspir ed Oxygen Hydration adequate: Yes Nausea and vomiting: No Pain level: 5 Mental status: Baseline
--- NOTE | 2020-09-27 07:51 | SUR.PHASEI ---
pt awake alert see earlier pain meds given lt foot in boot distal toes pink warm , also rt foot in boot, vss iv patent DR LUO AT BEDSIDE PT OK TO GO TO FLOOR PT ASKING FOR HER BISCUITS AND GRAVY REPORT CALLED, TO FLOOR.
--- NOTE | 2020-09-27 08:18 | XRR_ITS ---
PROCEDURE INFORMATION: Exam: XR Right Ankle Exam date and time: 09/27/2020 8:18 AM Age: 30 years old Clinical indication: Device placement; Other: Talus FX; Prior surgery; Surgery date: Post-operative (0-2 days) TECHNIQUE: Imaging protocol: XR Right ankle. Views: 3 or more views. COMPARISON: 1. XR RIGHT ANKLE 09/21/2020 1:[address] RIGHT ANKLE 08/17/2020 8:37 AM FINDINGS: Bones/joints: Transverse fracture of the distal fibula is redemonstrated. The talar fractures are not well depicted radiographically compared to the prior comparison CT scan, but a nondisplaced fracture of the lateral talar dome is appreciated and is unchanged. No change in alignment. No ankle mortise widening. Soft tissues: There is nonspecific diffuse superficial soft tissue swelling. XR/XR ankle RT min 3V* [id number] IMPRESSION: No significant change when compared to XR RIGHT ANKLE 09/21/2020 1:26 PM.
--- NOTE | 2020-09-27 08:57 | XRR_ITS ---
PROCEDURE INFORMATION: Exam: XR Left Ankle Exam date and time: 09/27/2020 8:57 AM Age: 30 years old Clinical indication: Device placement; Other: Post op; Prior surgery; Surgery date: Post-operative (0-2 days) TECHNIQUE: Imaging protocol: XR Left ankle. Views: 3 or more views. COMPARISON: CR XR ankle LT min 3V* [id number] 09/21/2020 1:20 PM FINDINGS: Bones/joints: Interval removal of the external fixator. Displaced comminuted fracture of the talus is redemonstrated, not definitively changed in alignment when allowing for differences in technique and patient positioning. Soft tissues: There is diffuse soft tissue swelling. XR/XR ankle LT min 3V* [id number] IMPRESSION: Comminuted displaced talar fracture.
[2020-09-27] MEDS: gabapentin 100 mg Capsule PO ×2 (09:22→17:31)
[2020-09-27] MEDS: doxycycline 100 mg Tablet PO ×2 (09:22→17:30)
[2020-09-27] MEDS: propranolol 40 mg Tablet 20 MG PO ×3 (09:22→22:03)
[2020-09-27] MEDS: BREXPIPRAZOLE 3 MG 3 EACH PO (09:32)
--- NOTE | 2020-09-27 09:51 | PC.CHAP ---
Pastoral Care Encounter/Spiritual Assessment Type of Contact [] Declined knife setter visit [] Patient/Family/Request visit [] Outpatient visit [] Follow-up visit [] Physician referral [] Code/Alert [x] Routine visit [] Staff referral [] Actively dying [] Patient sleeping [] Family support [] [] Out of room [] Palliative care [] [] Receiving care in room [] Pre-surgical visit [] Trauma [] Long length of stay [] ICU visit [] Other: Relational/Emotional Strength [] Patient feels connected with others/family/visitors/staff [] Distress [] Loneliness/isolation [] Abandonment Spirituality of Patient [x] Person of Sara [] Attends Restorationism of their Sara [] Believes in Prayer [] Reads Bible or Rastafari materials [] There are Spiritual issues to be addressed Ct Manager Interventions x[] Prayer [x] Active listening [] Non-anxious presence [] Spiritual/emotional support [] Crisis/trauma care [] Spiritual counseling [] Bereavement support [] Provided bereavement packet [] Provided Bible/devotional materials [] Provided toy/stuffed animal, coloring book to patient or family member [] Provided Communion [] Anointing/[place] [] Salvation [x] Completed spiritual assessment [] Other: Impact on Illness or Injury [] Angry [] Fearful [] Anxious [] Often cries [] Exhaustion [] Unable to work [] Unable to attend lutheran [] Unable to walk/stand [] Unable to read [] Unable to drive [] Unable to eat/drink [] Unable to sleep [] Unable to be with family [] Patient intubated [] Other: Summary patient cold told nurse patient needed blanket patient emotional regarding children Time spent with patient 10 min
[2020-09-27] MEDS: nicotine 21 mg Patch 1 PATCH TRANSDERMA (10:51)
--- NOTE | 2020-09-27 11:12 | PC.NURSE ---
verbal order for klonopin to be given early from dr. hartmann
[2020-09-27] MEDS: ibuprofen 200 mg Tablet 400 MG PO (11:18)
[2020-09-27] MEDS: escitalopram 10 mg Tablet 20 MG PO (11:18)
[2020-09-27] MEDS: cyclobenzaprine 10 mg Tablet PO (11:19)
[2020-09-27] MEDS: multivitamin therapeutic Tablet 1 TAB PO (11:19)
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
[2020-09-27] MEDS: enoxaparin 40 mg/0.4 mL Syringe SUBCUT (21:38)
[2020-09-28] VITALS (13 sets, daily range): BP systolic 103–143; BP diastolic 65–79; PULSE 74–98; RESP 13–18; TEMP 36.7–36.9; O2SAT 92–98
[2020-09-28] MEDS: escitalopram 10 mg Tablet 20 MG PO (05:14)
[2020-09-28] MEDS: oxyCODONE-APAP 10-325 mg Tablet 1 TAB PO ×4 (05:14→18:17)
--- NOTE | 2020-09-28 05:54 | PC.NURSE ---
shift note patient slept most of this shift, requested and received pain med x 3, verbalized anxiety about discharge due to no place for her to go.
[2020-09-28] MEDS: CLONazepam 1 mg Tablet PO ×2 (08:25→20:39)
[2020-09-28] MEDS: doxycycline 100 mg Tablet PO ×2 (08:26→18:17)
[2020-09-28] MEDS: gabapentin 100 mg Capsule PO ×2 (08:27→18:18)
[2020-09-28] MEDS: lisinopril 5 mg Tablet PO (08:27)
[2020-09-28] MEDS: propranolol 40 mg Tablet 20 MG PO ×3 (08:27→20:40)
[2020-09-28] MEDS: multivitamin therapeutic Tablet 1 TAB PO (08:27)
[2020-09-28] MEDS: cyclobenzaprine 10 mg Tablet PO ×2 (08:27→18:18)
[2020-09-28] MEDS: BREXPIPRAZOLE 3 MG 3 EACH PO (09:10)
[2020-09-28] MEDS: nicotine 21 mg Patch 1 PATCH TRANSDERMA (10:00)
[2020-09-28] MEDS: enoxaparin 40 mg/0.4 mL Syringe SUBCUT (20:40)
[2020-09-28] MEDS: ibuprofen 200 mg Tablet 400 MG PO (20:40)
--- NOTE | 2020-09-28 20:46 | P.PN_ITS ---
Subjective Subjective: Interval history: Intending to work with therapy further. States was having difficulty rising on her own. Very anxious about bearing weight on the leg. At home has 5 steps. Only one entrance. Unable to navigate in a wheelchair. As such states not yet able to discharge home. Today to work on parallel bars. She has been noted to be mobile propping up on her arms in the bed, transferring to the commode at the bedside. Today she is having some diarrhea. Vitals/I&O/Wt Last Vital Signs Temp 98.4 F 09/28/20 16:00 Pulse 74 09/28/20 16:00 Resp 17 09/28/20 18:17 BP 111/66 09/28/20 16:00 Pulse Ox 97 09/28/20 16:00 09/28/20 09/28/20 09/28/20 06:59 14:59 22:59 Intake Total 118 / 1178 480 / 480 Output Total 200 / 200 Balance 118 / 751 480 / 480 -200 / 280 Physical Exam Const: COMMON NORMALS: no acute distress and patient oriented x3 NUTRITIONAL APPEARANCE: obese HENMT: COMMON NORMALS: oropharynx normal Neck/C-Spine: COMMON NORMALS: no JVD Resp: COMMON NORMALS: normal respiratory effort and clear to auscultation bilaterally AUSCULTATION: clear to auscultation bilaterally Cardio: COMMON NORMALS: no JVD, regular rhythm, S1 normal heart sound present, S2 normal heart sound present and No murmurs present (Cardio) RHYTHM: regular rhythm HEART SOUNDS: S1 normal heart sound present and S2 normal heart sound present GI: COMMON NORMALS: Normal to inspection, nondistended, normoactive bowel sounds present, Soft to palpation and non-tender PALPATION: Yes Soft to palpation Extremity: COMMON NORMALS: no joint enlargement and no pedal edema OTHER: Boots bilaterally. Neuro: COMMON NORMALS: patient oriented x3 and moves all extremities Skin: COMMON NORMALS: no rashes or lesions noted GENERAL SKIN EXAM: no rashes or lesions noted RASHES: rashes noted (Faint papular right lower cheek) Data : 09/12/20 07:25 09/12/20 07:25 A&P Assessment and plan (1) Traumatic bilateral lower extremity fractures: Continue work with physical therapy for mobilization with walker. Discharge planning working with her with regards to where she may return after discharge. Status post fixator removal 09/27. Protected weightbearing on the right side with boot on. Nonweightbearing with boot on on the left. Plan follow-up with podiatry in 1 week. She is also given referral for follow-up with pain specialist. Oxycodone 10/325 q4hrs prn, currently also on Dilaudid. IS and flutter valve Status: Acute (2) Hypotension: Hypotension resolved. Status: Acute (3) Unable to care for self: Appreciate discharge planning consultation. Status: Acute (4) Generalized anxiety disorder with panic attacks: Status: Chronic (5) Chronic post-traumatic stress disorder: Status: Chronic (6) Major depressive disorder, recurrent, severe with psychotic symptoms: Status: Chronic (7) Medical marijuana use: Status: Chronic Additional A&P Information Smoking addiction: Nicotine replacement. Ear pain/left side neck pain: Secondary to left TMJ disorder. Resolved with cessation of nicotine gum. Continue lozenges as needed. Attestations Medical Necessity Statement*: Continue mobilization with walker, disposition planning and arrangements. Coding Level of Care Code Acute Diabetes Trainer for [facility] Diagnoses Traumatic bilateral lower extremity fractures S82.91XA; S82.92XA Hypotension I95.9 Unable to care for self Z78.9 Generalized anxiety disorder with panic attacks F41.1; F41.0 Chronic post-traumatic stress disorder F43.12 Major depressive disorder, recurrent, severe with psychotic symptoms F33.3 Medical marijuana use Z79.899
[2020-09-29] VITALS (9 sets, daily range): BP systolic 112–136; BP diastolic 64–84; PULSE 68–83; RESP 16–18; TEMP 36.5–37.1; O2SAT 93–96
[2020-09-29] MEDS: oxyCODONE-APAP 10-325 mg Tablet 1 TAB PO ×2 (03:00→09:09)
--- NOTE | 2020-09-29 04:51 | PC.NURSE ---
shift note, patient stood up on right leg with use of walker, exercised NWB to left LE. patient stood 3 times, activity totaling 10 minutes standing. no other attempt this shift, rested throughout the shift and c/o pain when awakened for for vitals. transfers self to [facility]
[2020-09-29] MEDS: escitalopram 10 mg Tablet 20 MG PO (07:02)
[2020-09-29] MEDS: BREXPIPRAZOLE 3 MG 3 EACH PO (09:10)
[2020-09-29] MEDS: cyclobenzaprine 10 mg Tablet PO (09:11)
[2020-09-29] MEDS: gabapentin 100 mg Capsule PO (09:11)
[2020-09-29] MEDS: CLONazepam 1 mg Tablet PO (09:11)
[2020-09-29] MEDS: lisinopril 5 mg Tablet PO (09:11)
[2020-09-29] MEDS: multivitamin therapeutic Tablet 1 TAB PO (09:11)
[2020-09-29] MEDS: propranolol 40 mg Tablet 20 MG PO (09:11)
--- NOTE | 2020-09-29 13:48 | P.DS_ITS ---
Discharge Providers Date of Admission: 09/01/20 20:41 Date of Discharge: September 29, 2020 Attending Provider at Admission: Bebe Rodriges MD Attending Provider at Discharge: Yan Watson Primary Care Provider: ADRYAN Reed Diagnoses at Discharge Discharge Diagnosis (1) Traumatic bilateral lower extremity fractures: Status: Acute Permanent problem details: Right: comminuted nondisplaced talar and nondisplaced distal fibular - casted Left: comminuted displaced talar and small avulasion fractures distal tibia associated with near complete dislocation of ankle mortise - reduced with external fixator placement (2) Hypotension: Status: Acute (3) Unable to care for self: Status: Acute (4) Generalized anxiety disorder with panic attacks: Status: Chronic (5) Chronic post-traumatic stress disorder: Status: Chronic (6) Major depressive disorder, recurrent, severe with psychotic symptoms: Status: Chronic (7) Medical marijuana use: Status: Chronic Reason for Visit Reason for Visit: ANKLE PAIN S/P ANKLE FX'S Hospital Course Hospital Course 30-year-old lady with bilateral ankle fractures with intractable pain, having left AGAINST MEDICAL ADVICE after recent hospitalization, having refused placement to care home facility, returned to the hospital on 09/02 unable to care for self at home after her significant other left her, with no other social support she came to the hospital. She was nonweightbearing on both lower extremities. With severe pain requiring frequent pain medication dosing. Continued follow-up with podiatry and dressing changes in the hospital, and continued nonweightbearing physical therapy. Placement to care home [facility] was attempted but was not possible. She did not have another place to go and he r family declined to take her in. Left ankle external fixator was removed on 09/27. Subsequently protected weightbearing with a boot on on the right lower extremity, nonweightbearing with the boot on on left lower extremity, initially rather fearful to bear any weight on the right side for fear of hurting herself again. However, he is regaining her confidence, pain with better control, and was able to stand several times on right lower extremity with a walker. Working with PT and was given additional instructions for home exercise, and safety tips with walker use. She has 5 steps at home, and at home cannot easily navigate a wheelchair. Per discussion with her landlord no other unit is available, and ramp cannot be set up. With removed fixator additional option of again attempting placement to care home facility, which she declined, not feeling she is regaining function capacity, ability, feeling more confident about returning home. Given steps at home, lack of easy way to get around with a wheelchair, and lack of alternative accommodations, we also offered her placement to homeless skilled nursing which would be wheelchair accessible, however, she declines. She will follow up with podiatry for reassessment in office. Off empiric antibiotics. Detailed counseling including risks of opioid therapy is given. She is provided with naloxone as well. She is referred for follow-up with pain clinic. She had been following up with behavioral health care and is encouraged to resume. She is encouraged to quit smoking. Nicotine replacement is provided for her to assist. Physical Exam Const: COMMON NORMALS: no acute distress, patient oriented x3 and alert NUTRITIONAL APPEARANCE: obese ORIENTATION/CONSCIOUSNESS: Yes awake OTHER: In better spirits. HENMT: COMMON NORMALS: oropharynx normal Neck/C-Spine: COMMON NORMALS: no JVD Resp: COMMON NORMALS: normal respiratory effort and clear to auscultation bilaterally AUSCULTATION: clear to auscultation bilaterally Cardio: COMMON NORMALS: no JVD, regular rhythm, S1 normal heart sound present, S2 normal heart sound present and No murmurs present (Cardio) RHYTHM: regular rhythm HEART SOUNDS: S1 normal heart sound present and S2 normal heart sound present GI: COMMON NORMALS: Normal to inspection, nondistended, normoactive bowel sounds present, Soft to palpation and non-tender PALPATION: Yes Soft to palpation Extremity: COMMON NORMALS: no joint enlargement and no pedal edema OTHER: Boots bilaterally. Neuro: COMMON NORMALS: patient oriented x3 and moves all extremities SENSORIUM/ORIENTATION: Yes alert Skin: COMMON NORMALS: no rashes or lesions noted GENERAL SKIN EXAM: no rashes or lesions noted RASHES: rashes noted (Faint papular right lower cheek) Discharge Data Data Completed and Pending: Completed Studies During Hospitalization Category Date Time Status XR ankle LT min 3 V* [id number] Routine Exams 09/09/20 13:14 Completed XR ankle LT min 3 V* [id number] Routine Exams 09/21/20 13:04 Completed XR ankle LT min 3 V* [id number] Routine Exams 09/27/20 08:57 Completed XR ankle RT min 3 V* [id number] Routine Exams 09/09/20 13:14 Completed XR ankle RT min 3 V* [id number] Routine Exams 09/21/20 13:03 Completed XR ankle RT min 3 V* [id number] Routine Exams 09/27/20 08:18 Completed Vitals: Last Vital Signs Temp 97.9 F 09/29/20 13:06 Pulse 75 09/29/20 13:06 Resp 17 09/29/20 13:22 BP 136/84 09/29/20 13:06 Pulse Ox 96 09/29/20 13:06 Discharge Plan Discharge Patient Disposition: Home Condition: Stable Prescriptions: New nicotine 21 mg/24 hr Patch 24 Hour 1 patch transdermal DAILY PRN (Reason: Nicotine Withdrawal) Qty: 30 RF: 0 nicotine (polacrilex) 4 mg Lozenge 4 mg PO Q4H PRN (Reason: Nicotine Cravings) Qty: 108 RF: 3 gabapentin 100 mg Capsule 100 mg PO BID Qty: 60 RF: 0 Narcan 4 mg/actuation spray,non-aerosol 1 spray intranasal Q2M PRN (Reason: opioid overdose) Qty: 2 RF: 0 Continued montelukast 10 mg tablet 10 mg PO DAILY RF: 0 lisinopril 5 mg tablet 5 mg PO DAILY RF: 0 Rexulti 3 mg tablet 3 mg PO DAILY Qty: 30 RF: 2 Lexapro 20 mg tablet 20 mg PO QAM Qty: 30 RF: 2 propranolol 40 mg tablet 40 mg PO TID Qty: 90 RF: 2 clonazepam 1 mg tablet 1 mg PO BID PRN (Reason: Anxiety) RF: 0 Percocet 10-325 mg tablet 1 tab PO Q8H PRN (Reason: pain) 7 Days Qty: 20 RF: 0 multivitamin Tablet 1 tab PO DAILY RF: 0 albuterol sulfate 2.5 mg /3 mL (0.083 %) solution for nebulization 2.5 mg inhalation Q6H PRN (Reason: Shortness Of Breath) RF: 0 ibuprofen 200 mg Tablet 200 mg PO PRN RF: 0 Discontinued oxycodone-acetaminophen [Percocet] 10-325 mg tablet 1 tab PO Q4H PRN (Reason: pain) 7 Days Qty: 30 RF: 0 doxycycline hyclate 100 mg capsule 100 mg PO BID 14 Days Qty: 28 RF: 0 enoxaparin [Lovenox] 40 mg/0.4 mL syringe 40 mg SUBCUT DAILY 14 Days Qty: 4 RF: 0 Discharge Orders: Discharge Order (Routine); Ordered 09/27/20 Ordered By: Yan Watson Other Ambulatory Orders: DME: Walker (Order) Location: None Selected Ordered By: Yan Watson Referrals: [facility] [Provider Group] - 1 week [phone] Palma Ramirez FNP [Primary Care Provider] - 10/04/20 2:30 pm Martir Lizarraga DPM [Physician] - 10/05/20 10:30 am Discharge Activity: Limit activity as instructed, Use walker/crutches as instructed and As per PT/OT instructions Patient Instructions: Acetaminophen (By mouth), Oxycodone/Acetaminophen (By mouth), Gabapentin (By mouth), How to Stop Smoking (GEN), Cigarette Smoking and Your Health (GEN), Medicinal Use of Cannabis (GEN), Opioid Safety Activity Restrictions/Additional Instructions: Please maintain protected weightbearing with the boot on while putting weight on the right lower extremity. Maintain nonweightbearing in the left with the boot on. Please use walker at all times. Maintain strict fall precautions. Follow-up with podiatry in office in 1 week. Please note that opioids are highly addictive medications with a number of very dangerous side effects. Please taper down use and discontinue as soon as this may be possible. Please continue therapy under close supervision of your primary provider and pain management clinic. Please monitor your blood pressures at home 3 times daily, write down values to discuss with your primary provider at next appointment. Please stop smoking as smoking will increase your risks of cardiovascular disease including heart attack, stroke, but also lung disease, emphysema, as well as various cancers. Please follow-up with behavioral health care to help with management of anxiety, depression, especially in stressful time. In case you noticed any worsening of her depression, or develop any thoughts of self-harm or ending her life, please seek medical attention immediately. Discharge Attestations Time Spent in Discharge Care*: greater than 30 min Status at Discharge: Cognitive status at discharge: cognitively intact , Behavioral status at discharge: cooperative , Quality Metrics Clinical Quality Measures During this hospital stay, did patient experience: None Coding Level of Care Code Acute [facility] note Diagnoses Traumatic bilateral lower extremity fractures S82.91XA; S82.92XA Hypotension I95.9 Unable to care for self Z78.9 Generalized anxiety disorder with panic attacks F41.1; F41.0 Chronic post-traumatic stress disorder F43.12 Major depressive disorder, recurrent, severe with psychotic symptoms F33.3 Medical marijuana use Z79.899
== END 2020-09-29 15:20 | disposition home or self-care (01) ==
LOC: ER 19:09 → MEDSURG 20:50
PROVIDERS: Anesthesiology; Family Medicine; Podiatrist Foot & Ankle Surgery; Admitting Provider Hospitalist; Emergency Provider Emergency Medicine; PCP Nurse Practitioner Family; Visit Provider Internal Medicine
PROC: (CPT 20694; principal; 2020-09-27 07:00)
DX: G89.11 Acute pain due to trauma (principal); S82.392D Other fracture of lower end of left tibia, subsequent encounter for closed fracture with routine healing; S82.831D Other fracture of upper and lower end of right fibula, subsequent encounter for closed fracture with routine healing; S92.192D Other fracture of left talus, subsequent encounter for fracture with routine healing; S92.191D Other fracture of right talus, subsequent encounter for fracture with routine healing; V89.2XXD Person injured in unspecified motor-vehicle accident, traffic, subsequent encounter; I95.9 Hypotension, unspecified; Z74.1 Need for assistance with personal care; F41.1 Generalized anxiety disorder; F41.0 Panic disorder [episodic paroxysmal anxiety]; F43.12 Post-traumatic stress disorder, chronic; F33.3 Major depressive disorder, recurrent, severe with psychotic symptoms; Z79.899 Other long term (current) drug therapy; Z60.2 Problems related to living alone; M26.602 Left temporomandibular joint disorder, unspecified; I10 Essential (primary) hypertension; F17.210 Nicotine dependence, cigarettes, uncomplicated; Z82.49 Family history of ischemic heart disease and other diseases of the circulatory system; Z82.3 Family history of stroke; F12.90 Cannabis use, unspecified, uncomplicated; K21.9 Gastro-esophageal reflux disease without esophagitis
CPT/HCPCS: 20694; 36415; 73610; 80053; 81025; 85025; 87426; 96372; 96374; 97110; 97116; 97162; 97165; 97530; 97535; 99285; A6446; A9281; G0378; J1100; J1170; J1650; J1885; J2250; J2270; J2405; J2704; J3010; Q0162

== ENCOUNTER → 2020-10-05 11:23 | Outpatient (BNVA) | payer MEDICAID, SELFPAY | PROVIDERS: PCP Nurse Practitioner Family; Visit Provider Podiatrist Foot & Ankle Surgery | DX: S82.892 Other fracture of left lower leg (principal); S92.101D Unspecified fracture of right talus, subsequent encounter for fracture with routine healing; X58.XXXD Exposure to other specified factors, subsequent encounter | CPT/HCPCS: 73610 ==

== ENCOUNTER → 2020-10-14 13:54 | Outpatient (BNVA) | payer MEDICAID, SELFPAY | PROVIDERS: PCP Nurse Practitioner Family; Visit Provider Podiatrist Foot & Ankle Surgery | DX: S82.892 Other fracture of left lower leg (principal); S92.101D Unspecified fracture of right talus, subsequent encounter for fracture with routine healing; Z48.89 Encounter for other specified surgical aftercare; X58.XXXD Exposure to other specified factors, subsequent encounter | CPT/HCPCS: 73610 ==

== ENCOUNTER → 2020-11-08 08:08 | Outpatient (BNVA) | payer MEDICAID, SELFPAY | PROVIDERS: PCP Nurse Practitioner Family; Visit Provider Podiatrist Foot & Ankle Surgery | DX: Z48.89 Encounter for other specified surgical aftercare (principal) | CPT/HCPCS: 73610 ==

== ENCOUNTER 2020-11-08 10:04 | Outpatient (CLI) | payer MEDICAID, SELFPAY | END 2020-11-08 10:05 | disposition home or self-care (01) | LOC: SPT 10:05 | PROVIDERS: PCP Nurse Practitioner Family; Visit Provider Podiatrist Foot & Ankle Surgery | DX: Z46.89 Encounter for fitting and adjustment of other specified devices (principal); M25.371 Other instability, right ankle | CPT/HCPCS: 97760; L1902 ==

== ENCOUNTER 2020-11-10 17:04 | Emergency (ER) | payer MEDICAID, SELFPAY ==
[2020-11-10 17:10] VITALS: BMI 39.4
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
[2020-11-10] MEDS: HYDROcodone-acetaminophen 7.5-325 mg Tablet 1 TAB PO (18:17)
[2020-11-10 19:10] VITALS: RESP 18
[2020-11-10] MEDS: morphine 4 mg/mL SDV 1 mL IM (19:10)
[2020-11-10 19:32] VITALS: PULSE 74; RESP 16; O2SAT 97
== END 2020-11-10 19:25 | disposition home or self-care (01) ==
PROVIDERS: Emergency Provider Emergency Medicine; PCP Nurse Practitioner Family
DX: M25.572 Pain in left ankle and joints of left foot (principal); Z79.82 Long term (current) use of aspirin; I10 Essential (primary) hypertension
CPT/HCPCS: 73610; 96372; 99283; J2270

== ENCOUNTER 2020-11-10 22:45 | Emergency (ER) | payer MEDICAID, SELFPAY ==
[2020-11-10 22:52] VITALS: BP 150/90; PULSE 87; RESP 18; TEMP 36.2; O2SAT 99; BMI 39.4
[2020-11-10 22:58] VITALS: PULSE 82
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
[2020-11-10] MEDS: HYDROcodone-acetaminophen 5-325 mg Tablet 1 TAB PO (23:13)
[2020-11-10 23:14] VITALS: BP 148/88; PULSE 82; RESP 18; O2SAT 100
[2020-11-10] MEDS: naproxen 500 mg Tablet PO (23:14)
== END 2020-11-10 23:15 | disposition home or self-care (01) ==
PROVIDERS: Emergency Provider Nurse Practitioner Family; PCP Nurse Practitioner Family
DX: M25.572 Pain in left ankle and joints of left foot (principal); I10 Essential (primary) hypertension; Z79.82 Long term (current) use of aspirin
CPT/HCPCS: 99283

== ENCOUNTER 2020-12-01 17:15 | Emergency (ER) | payer MEDICAID, SELFPAY ==
[2020-12-01 17:35] VITALS: BP 132/89; PULSE 98; RESP 16; TEMP 36.8; O2SAT 97; BMI 39.4
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
--- NOTE | 2020-12-01 17:45 | XRR_ITS ---
PROCEDURE INFORMATION: Exam: XR Left Ankle Exam date and time: 12/01/2020 5:45 PM Age: 30 years old Clinical indication: Prior surgery; Patient HX: Left ankle pain after fall yesterday TECHNIQUE: Imaging protocol: XR Left ankle. Views: 3 or more views. COMPARISON: CR (LOW EXM, ) 11/10/2020 6:10 PM FINDINGS: Bones/joints: The bones are intact and normal alignment. Soft tissues: Medial soft tissue swelling. XR/XR ankle LT min 3V* [id number] IMPRESSION: 1. No fracture identified.
[2020-12-01] MEDS: HYDROcodone-acetaminophen 5-325 mg Tablet 1 TAB PO (18:05)
[2020-12-01] MEDS: ketorolac 30 mg/mL INJ IM (18:30)
[2020-12-01] MEDS: clindamycin 150 mg Capsule 300 MG PO (18:30)
== END 2020-12-01 18:33 | disposition home or self-care (01) ==
PROVIDERS: Emergency Provider Nurse Practitioner Family; PCP Nurse Practitioner Family
DX: L03.116 Cellulitis of left lower limb (principal); M25.572 Pain in left ankle and joints of left foot; Z79.82 Long term (current) use of aspirin; I10 Essential (primary) hypertension
CPT/HCPCS: 73610; 96372; 99283; J1885

== ENCOUNTER → 2020-12-07 10:20 | Outpatient (BNVA) | payer MEDICAID, SELFPAY | PROVIDERS: PCP Nurse Practitioner Family; Visit Provider Podiatrist Foot & Ankle Surgery | DX: S82.892 Other fracture of left lower leg (principal); X58.XXXD Exposure to other specified factors, subsequent encounter | CPT/HCPCS: 73610 ==

== ENCOUNTER → 2021-01-03 14:53 | Outpatient (BNVA) | payer MEDICAID, SELFPAY | PROVIDERS: PCP Nurse Practitioner Family; Visit Provider Podiatrist Foot & Ankle Surgery | DX: S82.91XA Unspecified fracture of right lower leg, initial encounter for closed fracture (principal); S82.92XA Unspecified fracture of left lower leg, initial encounter for closed fracture; X58.XXXA Exposure to other specified factors, initial encounter | CPT/HCPCS: 73610 ==

== ENCOUNTER 2021-01-10 09:25 | Outpatient (CLI) | payer MEDICAID, SELFPAY | END 2021-01-10 09:26 | disposition home or self-care (01) | LOC: WOUND 09:26 | PROVIDERS: PCP Nurse Practitioner Family; Visit Provider Thoracic Surgery (Cardiothoracic Vascular Surgery) | DX: T81.89XA Other complications of procedures, not elsewhere classified, initial encounter (principal); Y83.8 Other surgical procedures as the cause of abnormal reaction of the patient, or of later complication, without mention of misadventure at the time of the procedure; F17.210 Nicotine dependence, cigarettes, uncomplicated | CPT/HCPCS: 11042; A6021; G0463 ==

== ENCOUNTER 2021-01-24 10:12 | Outpatient (CLI) | payer MEDICAID, SELFPAY | END 2021-01-24 10:13 | disposition home or self-care (01) | LOC: WOUND 10:12 | PROVIDERS: PCP Nurse Practitioner Family; Visit Provider Thoracic Surgery (Cardiothoracic Vascular Surgery) | DX: T81.89XA Other complications of procedures, not elsewhere classified, initial encounter (principal); Y83.8 Other surgical procedures as the cause of abnormal reaction of the patient, or of later complication, without mention of misadventure at the time of the procedure; F17.210 Nicotine dependence, cigarettes, uncomplicated; I10 Essential (primary) hypertension | CPT/HCPCS: 97597; A6021 ==

== ENCOUNTER 2021-01-29 20:50 | Emergency (ER) | payer MEDICAID, SELFPAY ==
[2021-01-29 20:53] VITALS: BP 136/80; PULSE 103; RESP 18; TEMP 36.7; O2SAT 97; BMI 39.4
--- NOTE | 2021-01-29 21:09 | XRR_ITS ---
PROCEDURE INFORMATION: Exam: XR Left Foot Exam date and time: 01/29/2021 9:09 PM Age: 30 years old Clinical indication: Pain; Foot; Left; Prior surgery; Surgery date: 1-6 months; Surgery type: Lt ankle FX -2020; Additional info: Injury/pain TECHNIQUE: Imaging protocol: XR Left foot. Views: 3 or more views. COMPARISON: CR XR ankle LT min 3V* [id number] 09/27/2020 9:09 AM FINDINGS: Bones/joints: No acute fracture or dislocation. Soft tissues: Normal. XR/XR foot LT min 3V* [id number] IMPRESSION: No acute fracture or dislocation. Radiation Dose CTDIVOL = (mGy): DLP = (mGy-cm)
--- NOTE | 2021-01-29 21:09 | XRR_ITS ---
PROCEDURE INFORMATION: Exam: XR Left Tibia and Fibula Exam date and time: 01/29/2021 9:09 PM Age: 30 years old Clinical indication: Pain; Lower leg; Left; Prior surgery; Surgery date: 1-6 months; Surgery type: Lt ankle FX -2020; Additional info: Injury TECHNIQUE: Imaging protocol: XR Left tibia and fibula. Views: 2 views. COMPARISON: CR XR ankle LT min 3V* [id number] 09/27/2020 9:09 AM FINDINGS: Tubes, catheters and devices: Pin tracks are present from previous hardware placement. Bones/joints: Stable small sliver of bone adjacent to the medial malleolus. No acute fracture or dislocation. Soft tissues: Normal. XR/XR tibia fibula LT 2V [id number] IMPRESSION: No acute fracture or dislocation. Radiation Dose CTDIVOL = (mGy): DLP = (mGy-cm)
--- NOTE | 2021-01-29 21:09 | XRR_ITS ---
PROCEDURE INFORMATION: Exam: XR Left Ankle Exam date and time: 01/29/2021 9:09 PM Age: 30 years old Clinical indication: Pain; Left; Prior surgery; Surgery date: 1-6 months; Surgery type: Lt ankle FX ; Additional info: Injury TECHNIQUE: Imaging protocol: XR Left ankle. Views: 3 or more views. COMPARISON: CR XR ankle LT min 3V* [id number] 12/01/2020 5:44 PM FINDINGS: Bones/joints: Stable avulsion fractures adjacent to the medial malleolus. No acute fracture or dislocation. Soft tissues: Normal. XR/XR ankle LT min 3V* [id number] IMPRESSION: No acute fracture or dislocation. Radiation Dose CTDIVOL = (mGy): DLP = (mGy-cm)
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
[2021-01-29] MEDS: ketorolac 60 mg/2 mL INJ IM (21:22)
[2021-01-29] MEDS: HYDROcodone-acetaminophen 5-325 mg Tablet 1 TAB PO (22:32)
[2021-01-29 22:33] VITALS: BP 129/75; PULSE 97; RESP 18; O2SAT 97
== END 2021-01-29 22:40 | disposition home or self-care (01) ==
PROVIDERS: Emergency Provider Physician Assistant; PCP Nurse Practitioner Family
DX: G89.28 Other chronic postprocedural pain (principal); Z79.82 Long term (current) use of aspirin; I10 Essential (primary) hypertension
CPT/HCPCS: 73590; 73610; 73630; 96372; 99283; J1885

== ENCOUNTER 2021-01-31 10:08 | Outpatient (CLI) | payer MEDICAID, SELFPAY | END 2021-01-31 10:09 | disposition home or self-care (01) | LOC: WOUND 10:11 | PROVIDERS: PCP Nurse Practitioner Family; Visit Provider Nurse Practitioner Family | DX: T81.89XA Other complications of procedures, not elsewhere classified, initial encounter (principal); Y83.8 Other surgical procedures as the cause of abnormal reaction of the patient, or of later complication, without mention of misadventure at the time of the procedure; F17.210 Nicotine dependence, cigarettes, uncomplicated | CPT/HCPCS: 11042; A6021 ==

== ENCOUNTER 2021-03-07 22:22 | Emergency (ER) | payer MEDICAID, SELFPAY ==
[2021-03-07 22:23] VITALS: BP 138/88; PULSE 99; RESP 20; TEMP 36.6; O2SAT 95; BMI 42.9
--- NOTE | 2021-03-07 22:27 | XRR_ITS ---
PROCEDURE INFORMATION: Exam: XR Left Tibia and Fibula Exam date and time: 03/07/2021 10:27 PM Age: 31 years old Clinical indication: Injury or trauma; Fall; Blunt trauma; Lower leg; Left; Prior surgery TECHNIQUE: Imaging protocol: XR Left tibia and fibula. Views: 2 views. COMPARISON: CR (LOW EXM, ) 01/29/2021 10:31 PM FINDINGS: Bones/joints: Old screw tracks in the mid diaphysis of the left tibia. Age indeterminate displaced fracture through the left talus. Secondary ossifications adjacent to the medial malleolus. Soft tissues: Normal. XR/XR tibia fibula LT 2V [id number] IMPRESSION: 1. Age indeterminate displaced left talus fracture. This can be further evaluated with CT imaging.
--- NOTE | 2021-03-07 22:27 | XRR_ITS ---
PROCEDURE INFORMATION: Exam: XR Left Ankle Exam date and time: 03/07/2021 10:27 PM Age: 31 years old Clinical indication: Injury or trauma; Fall; Blunt trauma; Foot; Left; Prior surgery; Surgery date: 6+ months TECHNIQUE: Imaging protocol: XR Left ankle. Views: 3 or more views. COMPARISON: CR (LOW EXM, ) 01/29/2021 10:31 PM FINDINGS: Bones/joints: The bones of the left ankle appear intact and in normal alignment. Displaced transverse fracture through the talus. Soft tissues: Normal. XR/XR ankle LT min 3V* [id number] IMPRESSION: 1. Left talus fracture. This can be further evaluated with CT imaging.
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
[2021-03-07] MEDS: ondansetron 2 mg/ML SDV 2 mL 4 MG IVP (22:34)
[2021-03-07 22:37] VITALS: RESP 18
[2021-03-07] MEDS: HYDROmorphone 1 mg/mL INJ 1 mL IVP ×2 (22:37→23:10)
[2021-03-07 23:10] VITALS: RESP 22; O2SAT 97
[2021-03-07 23:16] VITALS: BP 144/87; RESP 22; O2SAT 96
[2021-03-07 23:56] VITALS: BP 146/82; PULSE 84; RESP 22; O2SAT 97
--- NOTE | 2021-03-08 | PC.NURSE ---
pr refused crutches stating she has more stability on her walker. Dr notified and ok
--- NOTE | 2021-03-09 10:24 | DCPLANNER ---
diagnostic imaging manager had message to schedule a follow up appointment for patient with ortho. diagnostic imaging manager called the ortho clinic, spoke with Maryjane, gave clinic patients information. diagnostic imaging manager was told that patients information would be printed and reviewed. Clinic will call patient with appointment information.
--- NOTE | 2021-03-10 07:57 | DCPLANNER ---
Patient has a follow up appointment scheduled for Sunday, March 14, [address] at 8:[address] Lizarraga at [facility]. Clinic will call patient with appointment information.
--- NOTE | 2021-03-17 11:27 | DCPLANNER ---
Patient had a follow up appointment scheduled for 03.14.21 with ortho - patient did attend appointment.
== END 2021-03-07 23:30 | disposition home or self-care (01) ==
PROVIDERS: Emergency Provider Emergency Medicine; PCP Nurse Practitioner Family
DX: S92.102A Unspecified fracture of left talus, initial encounter for closed fracture (principal); Z79.82 Long term (current) use of aspirin; I10 Essential (primary) hypertension; W01.0XXA Fall on same level from slipping, tripping and stumbling without subsequent striking against object, initial encounter
CPT/HCPCS: 29505; 73590; 73610; 99283; J1170; J2405

== ENCOUNTER → 2021-03-14 09:09 | Outpatient (BNVA) | payer MEDICAID, SELFPAY | PROVIDERS: PCP Nurse Practitioner Family; Referring Provider Emergency Medicine; Visit Provider Podiatrist Foot & Ankle Surgery | DX: S92.102A Unspecified fracture of left talus, initial encounter for closed fracture (principal); X58.XXXA Exposure to other specified factors, initial encounter; Z87.81 Personal history of (healed) traumatic fracture | CPT/HCPCS: 73610 ==

== ENCOUNTER 2021-04-05 12:54 | Outpatient (CLI) | payer MEDICAID, SELFPAY ==
--- NOTE | 2021-04-05 13:03 | CT_ITS ---
WS: [id number] CT LEFT FOOT, NONCONTRAST. HISTORY: left foot injury, re-injury. Fell 3 weeks ago. Reinjury of an old fracture. Technique: All [facility] scans at [facility] use at least one of these dose optimization techniques: automated exposure control; mA and/or kV adjustment per patient size (includes targeted exams where dose is matched to clinical indication); or iterative reconstruction. DLP: 463.78 mGycm COMPARISON: 08/17/2020 No metatarsal or phalangeal acute fracture. No widening along the Lisfranc joint. 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 There is no callus formation ac ross the talar fracture. The alignment along the fracture has changed slightly. Slight widening along the fracture line. Defects within the talus from prior screw placement and interval removal. No acut e appearing fracture line. There are multiple osseous fragments along the medial malleolus which are well-corticated and probably from the old injury. These osseous fragments may be from the talus as th ere is irregularity along the surface of the talar fracture. The subtalar joint is within normal limi ts. No calcaneal fracture. Sclerosis is noted within the medial cuneiform which may be from a old fra cture or osteopenia. There is also minimal sclerosis involving the proximal first metatarsal. No haqeu ge in alignment. There is heterogeneity within the marrow which is probably from osteopenia and disus e. CT/CT foot LT wo con* [id number] IMPRESSION: 1. 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 This is a remote fracture previously treated with external fixators. T here is no callus formation along the fracture. 2. Mixed density within the medial cuneiform and the proximal first metatarsal may be related to disuse and/or healed fractures. No acute fracture line is ev ident.
== END 2021-04-05 12:55 | disposition home or self-care (01) ==
PROVIDERS: PCP Nurse Practitioner Family; Visit Provider Podiatrist Foot & Ankle Surgery
DX: S92.102A Unspecified fracture of left talus, initial encounter for closed fracture (principal); X58.XXXA Exposure to other specified factors, initial encounter
CPT/HCPCS: 73700

== ENCOUNTER 2021-04-11 18:03 | Emergency (ER) | payer MEDICAID, SELFPAY ==
[2021-04-11 18:33] VITALS: BP 153/97; PULSE 76; RESP 16; TEMP 36.4; O2SAT 96; BMI 42.9
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
--- NOTE | 2021-04-11 18:42 | XRR_ITS ---
PROCEDURE INFORMATION: Exam: XR Left Foot Exam date and time: 04/11/2021 6:42 PM Age: 31 years old Clinical indication: Injury or trauma; Fall; Blunt trauma; Foot; Left; Additional info: Fall, pain TECHNIQUE: Imaging protocol: XR Left foot. Views: 3 or more views. Total images: 3 COMPARISON: CR (LOW EXM, ) 01/29/2021 10:31 PM FINDINGS: Tubes, catheters and devices: Examination taken through fiberglass casting material limiting assessment. Bones/joints: Disuse osteopenia. No grossly visible fracture. Soft tissues: Limited assessment. XR/XR foot LT min 3V* 26907 IMPRESSION: Grossly nonacute.
--- NOTE | 2021-04-11 18:42 | XRR_ITS ---
PROCEDURE INFORMATION: Exam: XR Left Ankle Exam date and time: 04/11/2021 6:42 PM Age: 31 years old Clinical indication: Injury or trauma; Fall; Blunt trauma; Ankle; Left; Additional info: Fall, pain TECHNIQUE: Imaging protocol: XR Left ankle. Views: 3 or more views. Total images: 3 COMPARISON: 1. CR (LOW EXM, ) 03/07/2021 10:37 PM 2. CR (LOW EXM, ) 01/29/2021 10:31 PM 3. CR (LOW EXM, ) 01/29/2021 10:31 PM FINDINGS: Tubes, catheters and devices: Examination taken through fiberglass casting material. Bones/joints: Disuse osteopenia. No grossly visible acute osseous abnormality. Ankle mortise appears grossly intact. Potential previous transverse fracture through the talus. This is not well demonstrated radiographically. Soft tissues: Limited assessment. XR/XR ankle LT min 3V* [id number] IMPRESSION: 1. No visible acute osseous abnormality. 2. Examination taken through fiberglass material limiting assessment.
[2021-04-11 18:51] VITALS: BP 157/87; PULSE 76; RESP 18; O2SAT 96
[2021-04-11 20:10] VITALS: RESP 16
[2021-04-11] MEDS: morphine 4 mg/mL SDV 1 mL IM (20:10)
--- NOTE | 2021-04-12 17:34 | DCPLANNER ---
Addendum entered by Essie Tai 04/21/21 07:12: Patient had a follow up appointment scheduled with ortho on 04.19.21 - patient did attend appointment. Original Note: software asset manager had message to schedule a follow up appointment for patient with ortho. software asset manager emailed patients information to both Amy and Norma at [facility] Ortho. Patients information will be printed and reviewed. Clinic will call patient with appointment information.
== END 2021-04-11 20:35 | disposition home or self-care (01) ==
PROVIDERS: Emergency Provider Physician Assistant; PCP Nurse Practitioner Family
DX: S89.92XA Unspecified injury of left lower leg, initial encounter (principal); Z79.82 Long term (current) use of aspirin; I10 Essential (primary) hypertension; W01.0XXA Fall on same level from slipping, tripping and stumbling without subsequent striking against object, initial encounter
CPT/HCPCS: 73610; 73630; 96372; 99283; J2270

== ENCOUNTER 2021-04-16 17:21 | Emergency (ER) | payer MEDICAID, SELFPAY ==
[2021-04-16 17:59] VITALS: BP 161/105; PULSE 78; RESP 18; TEMP 36.3; O2SAT 97; BMI 37.8
--- NOTE | 2021-04-16 18:18 | XRR_ITS ---
PROCEDURE INFORMATION: Exam: XR Left Ankle Exam date and time: 04/16/2021 6:18 PM Age: 31 years old Clinical indication: Pain; Ankle; Prior surgery; Surgery date: 1-6 months; Surgery type: Left abkle; Additional info: Fall-concern for reinjurying left ankle TECHNIQUE: Imaging protocol: XR Left ankle. Views: 3 or more views. COMPARISON: CR (LOW EXM, ) 04/11/2021 6:53 PM FINDINGS: Bones/joints: Mildly displaced talar fractures are stable when compared to the prior study. There are chronic osseous densities adjacent to the medial malleolus. Soft tissues: There is edema in the soft tissues. Other findings: Examination taken through casting material. XR/XR ankle LT min 3V* [id number] IMPRESSION: Mildly displaced talar fractures appears stable when compared to the prior study.
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
[2021-04-16 20:11] VITALS: RESP 20
[2021-04-16] MEDS: oxyCODONE-APAP 5-325 mg Tablet 1 TAB PO (20:11)
[2021-04-16 20:15] VITALS: BP 150/94; PULSE 78; RESP 18; TEMP 37.1; O2SAT 97
[2021-04-16 20:29] VITALS: BP 150/94; PULSE 78; RESP 18; TEMP 37.1; O2SAT 97
== END 2021-04-16 21:20 | disposition home or self-care (01) ==
PROVIDERS: Emergency Provider Physician Assistant; PCP Nurse Practitioner Family
DX: S89.92XA Unspecified injury of left lower leg, initial encounter (principal); Z79.82 Long term (current) use of aspirin; I10 Essential (primary) hypertension; W19.XXXA Unspecified fall, initial encounter
CPT/HCPCS: 73610; 99283; E0114

== ENCOUNTER 2021-04-19 16:08 | Outpatient (CLI) | payer MEDICAID, SELFPAY | END 2021-04-19 16:09 | disposition home or self-care (01) | LOC: SPT 16:08 | PROVIDERS: PCP Nurse Practitioner Family; Visit Provider Podiatrist Foot & Ankle Surgery | DX: Z46.89 Encounter for fitting and adjustment of other specified devices (principal); S92.101D Unspecified fracture of right talus, subsequent encounter for fracture with routine healing; X58.XXXD Exposure to other specified factors, subsequent encounter | CPT/HCPCS: 97760; L4361 ==

== ENCOUNTER → 2021-05-09 15:54 | Outpatient (BNVA) | payer MEDICAID, SELFPAY | PROVIDERS: PCP Nurse Practitioner Family; Visit Provider Podiatrist Foot & Ankle Surgery | DX: M79.672 Pain in left foot (principal); M25.572 Pain in left ankle and joints of left foot | CPT/HCPCS: 73610; 73630 ==

== ENCOUNTER 2021-06-08 03:08 | Emergency (ER) | payer MEDICAID, SELFPAY ==
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
[2021-06-08 03:18] VITALS: PULSE 134; RESP 20; TEMP 37.2; O2SAT 97; BMI 44.7
--- NOTE | 2021-06-08 03:35 | XRR_ITS ---
PROCEDURE INFORMATION: Exam: XR Left Tibia and Fibula Exam date and time: 06/08/2021 3:35 AM Age: 31 years old Clinical indication: Injury or trauma; Fall; Blunt trauma; Lower leg; Patient HX: Patient fell in shower last night. C/O left leg pain. Recent history of left trimalleolar ankle fracture with slow healing. ; Additional info: Fall, pain TECHNIQUE: Imaging protocol: XR Left tibia and fibula. Views: 2 views. COMPARISON: CR XR foot LT min 3V* [id number] 05/09/2021 4:01 PM FINDINGS: Bones/joints: No erosive changes. No periosteal response. No fracture. No soft tissue calcifications. Medial and lateral malleoli normal. ankle mortise is symmetrical. Hindfoot foot unremarkable. Tibiotalar joint and the subtalar joint normal. Transverse fracture of the medial malleolus. Please see ankle radiograph. Prior surgical screw holes in the mid tibial diaphysis. Soft tissues: See Bones/joints finding. XR/XR tibia fibula LT 2V [id number] IMPRESSION: Transverse fracture of the medial malleolus. Please see ankle radiograph. Age indeterminate.
--- NOTE | 2021-06-08 03:35 | XRR_ITS ---
PROCEDURE INFORMATION: Exam: XR Left Foot Exam date and time: 06/08/2021 3:35 AM Age: 31 years old Clinical indication: Injury or trauma; Fall; Blunt trauma; Foot; Patient HX: Patient fell in shower last night. C/O left leg pain. Recent history of left trimalleolar ankle fracture with slow healing. ; Additional info: Fall, pain TECHNIQUE: Imaging protocol: XR Left foot. Views: 3 or more views. COMPARISON: CR XR foot LT min 3V* [id number] 05/09/2021 4:01 PM FINDINGS: Bones/joints: Hindfoot-midfoot and midfoot-forefoot articulations normal. Metatarsals and phalanges without an acute process. Subtalar and tibiotalar joint normal. Mild degenerative changes at the first metatarsal phalangeal joint. Mild soft tissue swelling about the joint space medially. Lucency at the base of the 1st metatarsal suspicious for a fracture also likely chronic. This was noted on the prior CT. Soft tissues: See Bones/joints finding. XR/XR foot LT min 3V* [id number] IMPRESSION: Lucency at the base of the 1st metatarsal suspicious for a fracture also likely chronic. This was noted on the prior CT.
--- NOTE | 2021-06-08 03:35 | XRR_ITS ---
PROCEDURE INFORMATION: Exam: XR Right Foot Exam date and time: 06/08/2021 3:35 AM Age: 31 years old Clinical indication: Injury or trauma; Fall; Blunt trauma; Patient HX: Patient fell in shower last night. C/O right foot and ankle pain. ; Additional info: Fall, pain TECHNIQUE: Imaging protocol: XR Right foot. Views: 3 or more views. COMPARISON: CR XR ankle RT min 3V* [id number] 11/08/2020 8:15 AM FINDINGS: Bones/joints: hindfoot-midfoot and midfoot-forefoot articulations are normal. metatarsals and the phalanges without an acute process. subtalar joint and the tibiotalar joint appears normal. Soft tissues: Normal. XR/XR foot RT min 3V* [id number] IMPRESSION: Normal foot
--- NOTE | 2021-06-08 03:35 | XRR_ITS ---
PROCEDURE INFORMATION: Exam: XR Right Ankle Exam date and time: 06/08/2021 3:35 AM Age: 31 years old Clinical indication: Injury or trauma; Fall; Blunt trauma; Ankle and foot; Patient HX: Patient fell in shower last night. C/O right foot and ankle pain. ; Additional info: Fall, pain TECHNIQUE: Imaging protocol: XR Right ankle. Views: 3 or more views. COMPARISON: CR XR ankle RT min 3V* [id number] 11/08/2020 8:15 AM FINDINGS: Bones/joints: Medial and lateral malleoli are normal. Ankle mortise is symmetrical. No fracture. Hindfoot is unremarkable. Tibiotalar joint and subtalar joint normal. Subtle lucency in the subchondral region of the dome of the talus laterally noted on two views. Possible osteochondral nature. Consider CT versus MRI. Soft tissues: Normal. XR/XR ankle RT min 3V* [id number] IMPRESSION: Subtle lucency in the subchondral region of the dome of the talus laterally noted on two views. Possible osteochondral nature. Consider CT versus MRI.
--- NOTE | 2021-06-08 03:35 | XRR_ITS ---
PROCEDURE INFORMATION: Exam: XR Left Ankle Exam date and time: 06/08/2021 3:35 AM Age: 31 years old Clinical indication: Injury or trauma; Fall; Blunt trauma; Patient HX: Patient fell in shower last night. C/O left leg pain. Recent history of left trimalleolar ankle fracture with slow healing. ; Additional info: Fall, pain TECHNIQUE: Imaging protocol: XR Left ankle. Views: 3 or more views. COMPARISON: CR XR ankle LT min 3V* [id number] 05/09/2021 4:01 PM FINDINGS: Bones/joints: Fractures distal aspect medial malleolus likely chronic. Correlate regarding tenderness. Lateral malleolus normal. Irregularity of the talus noted on the prior exam and on the lateral radiograph. Question malalignment on the anterior posterior view. Known fracture of the talar neck and body. Please reference CT dated 04-05-21. Soft tissues: Normal. XR/XR ankle LT min 3V* [id number] IMPRESSION: 1. Fractures distal aspect medial malleolus likely chronic. Correlate regarding tenderness. Previously noted. 2. Irregularity of the talus noted on the prior exam and on the lateral radiograph. Question malalignment on the anterior posterior view. Known fracture of the talar neck and body. Please reference CT dated 04-05-21. Stable in reference to previous plain films.
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
[2021-06-08 03:42] VITALS: RESP 18
[2021-06-08] MEDS: morphine 4 mg/mL SDV 1 mL IM (03:42)
[2021-06-08] MEDS: ondansetron 2 mg/ML SDV 2 mL 4 MG IM (04:39)
[2021-06-08 06:45] VITALS: RESP 18
[2021-06-08] MEDS: oxyCODONE 5 mg IR Tab/Cap PO (06:45)
--- NOTE | 2021-06-08 07:10 | PC.NURSE ---
PT IS NOT IN ROOM WILL RECHECK IN 15 MINUTES.
--- NOTE | 2021-06-08 07:28 | PC.NURSE ---
PT IS NOT IN ROOM.
== END 2021-06-08 07:43 | disposition home or self-care (01) ==
PROVIDERS: Emergency Provider Emergency Medicine; PCP Nurse Practitioner Family
DX: M25.572 Pain in left ankle and joints of left foot (principal); M25.571 Pain in right ankle and joints of right foot; W18.2XXA Fall in (into) shower or empty bathtub, initial encounter; Z53.21 Procedure and treatment not carried out due to patient leaving prior to being seen by health care provider; Z79.82 Long term (current) use of aspirin; I10 Essential (primary) hypertension; F17.210 Nicotine dependence, cigarettes, uncomplicated
CPT/HCPCS: 73590; 73610; 73630; 96372; 99283; J2270; J2405

== ENCOUNTER 2025-02-05 15:15 | Emergency (ER) | payer MEDICAID, SELFPAY ==
[2025-02-05 15:30] VITALS: BP 177/92; PULSE 62; RESP 18; TEMP 36.7; O2SAT 97; BMI 38.6
--- NOTE | 2025-02-05 15:49 | XRR_ITS ---
PROCEDURE INFORMATION: Exam: XR Chest Exam date and time: 02/05/2025 6:00 PM Age: 34 years old Clinical indication: Cough and dyspnea; Additional info: Dyspnea/cough TECHNIQUE: Imaging protocol: Radiologic exam of the chest. Views: 1 view. COMPARISON: CR XR shoulder LT min 2V* [id number] 08/16/2020 5:22 PM FINDINGS: Lungs: Unremarkable. No consolidation. Pleural spaces: Unremarkable. No pleural effusion. No pneumothorax. Heart/Mediastinum: Cardiac silhouette is prominent. Bones/joints: Unremarkable. XR/XR chest 1V portable [id number] IMPRESSION: No acute cardiopulmonary findings.
[2025-02-05 16:35] LABS: Hematocrit 38.8 % (36-47); Hemoglobin 13.20 g/dL (11.27-16.99); Mean Corpuscular HGB Conc 34.0 g/dL (30-55); Mean Corpuscular Hemoglobin 32.8 pg (27-33); Mean Corpuscular Volume 96.3 fl (85-98); Nucleated Red Blood Cells % 0 %; Platelet Count 251 10^3/cmm (157-399); Red Blood Count 4.03 10^6/uL (3.85-5.65); White Blood Count 6.87 10^3/uL (3.29-11.43)
[2025-02-05 16:50] LABS: Alanine Aminotransferase 12 U/L (0-33); Albumin Level 4.4 g/dL (3.5-5.2); Alkaline Phosphatase 99 U/L (35-105); Anion Gap 17.3 (5-19); Aspartate Amino Transferase 18 U/L (0-32); Blood Urea Nitrogen 9 mg/dL (6-20); Calcium 9.6 mg/dL (8.5-10.5); Carbon Dioxide 27 mmol/L (22-29); Chloride 99 mmol/L (98-107); Globulin 2.4 g/dL (1.3-4.6); Glucose 97 mg/dL (65-115); Osmolality Calculated 287 mOsm/kg (285-295); Potassium 4.3 mmol/L (3.5-5.1); Sodium 139 mmol/L (136-145); Total Protein 6.8 g/dL (6.6-8.7)
[2025-02-05 18:19] VITALS: BP 181/97; PULSE 61; RESP 18; O2SAT 98
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
[2025-02-05 18:47] LABS: Magnesium 1.8 mg/dL (1.7-2.3); NT Pro B Type Natriuretic Pept 457 pg/mL (0-125); Thyroid Stimulating Hormone 1.95 uIU/mL (0.27-4.20)
[2025-02-05 19:00] VITALS: BP 126/75; PULSE 66; RESP 16; O2SAT 92
[2025-02-05 19:05] LABS: Respiratory Syncytial Virus Ce NEGATIVE (Negative); SARS-CoV-2 PCR NEGATIVE (Negative)
[2025-02-05 20:00] VITALS: BP 168/104; PULSE 70; RESP 18; O2SAT 95
[2025-02-05] MEDS: FUROsemide 10 mg/mL SDV 10mL 80 MG IVP (20:02)
[2025-02-05 20:26] VITALS: BP 165/105; PULSE 71; RESP 16; O2SAT 92
--- NOTE | 2025-02-08 09:43 | DCPLANNER ---
messaged heart care for er f/u
== END 2025-02-05 20:25 | disposition home or self-care (01) ==
PROVIDERS: Family Medicine; Emergency Provider Physician Assistant; PCP Nurse Practitioner Primary Care
DX: I11.0 Hypertensive heart disease with heart failure (principal); I50.31 Acute diastolic (congestive) heart failure; F17.210 Nicotine dependence, cigarettes, uncomplicated; Z11.52 Encounter for screening for COVID-19
CPT/HCPCS: 36415; 71045; 80053; 83735; 83880; 84443; 85025; 87637; 96374; 99284; J1938; J9999

== ENCOUNTER → 2025-03-08 15:14 | Outpatient (BNVA) | payer MEDICAID, SELFPAY | PROVIDERS: PCP Nurse Practitioner Primary Care; Visit Provider Internal Medicine | DX: I11.0 Hypertensive heart disease with heart failure (principal); I50.9 Heart failure, unspecified; F17.210 Nicotine dependence, cigarettes, uncomplicated; Z87.09 Personal history of other diseases of the respiratory system; J44.9 Chronic obstructive pulmonary disease, unspecified | CPT/HCPCS: 99204 ==